=== PATIENT | female | born 1965 | race Caucasian/White ===

== ENCOUNTER → 2016-10-20 | Outpatient (CLI) | payer OTHER, SELFPAY ==
[~2016-10-20] MED LIST: ADV250INH INH; ADVI200C5 PO; ALBU0.084 IN; ALBU17IN INH; ALBU83IN INH; ATIV1TAB7 PO; BACL10TA2 PO; BUSP15TA47 PO; CELL500T PO; CIPR500T89 PO; CITA20TA4 PO; COLA100C PO; COLC1TAB5 PO; Citalopram PO; FLAG500T PO; FURO40TA2 PO; HYDR200T3 PO; IBUP600T26 PO; IBUP80TA PO; INSULANT SC; IPRAINH INH; KLOR1TAB73 PO; LASI40TA PO; LEVA750T PO; LEVO750T33 PO; LORA2CON5 PO; MECL-68 PO; METF1000 PO; MYFO360T PO; NICO14DI3 TD; NICO21DI5 TD; NORCOTAB FT; NORCOTAB PO; NOVOINJ12 SC; PERCOCET PO; PRED10TA PO; PRED20TA PO; PRED20TAB PO; PROT1TAB2 PO; PULMICORT INH; ROBITUSSIN PO; TRAM50TA2 PO; TYLE325T5 PO; ULTR50TA PO; VENTAER IN; VIST25CA PO; XANA0.25 PO; ZITHTAB PO; [UNRECOGNIZED DRUG - CODE] PO; [UNRECOGNIZED DRUG - OTHER]; colcrys PO
--- NOTE | 2016-10-20 18:15 | REP ---
PA and lateral chest: Comparison is 05/27/2015. The lung batres are clear. The cardiac size is normal The irving, mediastinum, and bony thorax are unremarkable. Impression: Negative PA and lateral chest. There is no interval change. Signed by Antolin Rice MD 10/20/2016 06:07 P
== END ==
LOC: M LRY 17:04 → M WUC 17:04
PROVIDERS: ATTEND Physician Assistant
DX: J45.909 Unspecified asthma, uncomplicated (principal)

== ENCOUNTER → 2016-10-21 | Outpatient (CLI) | payer MEDICARE ==
[2016-10-21 10:56] LABS: CREATININE FOR GFR 1.06 MG/DL (0.55-1.02); GLOMERULAR FILTRATION RATE 57.7 (>51)
--- NOTE | 2016-10-21 12:25 | REP ---
Chest CT pulmonary artery CT angiography: Comparisons are the similar CT of the chest dated 05/27/[address] of the abdomen dated 02/02/2013. There are no emboli in the pulmonary trunk or central pulmonary arteries. There are no emboli in the pulmonary artery lobe or segment branches. There are no infiltrates, effusions or masses. There is no mediastinal, hilar or axillary lymphadenopathy. Thoracic aorta is unremarkable. Cardiac size is normal. There is a 2.8 cm hypodensity in the right lobe of the liver, unchanged in size from 02/02/2013. MRI of this lesion was attempted on 02/15/2014, however, the patient was too claustrophobic for the MRI examination. Impression: There are no pulmonary emboli. There are no infiltrates, effusions or masses. There is a stable hypo density in the right lobe of the liver as described. Signed by Antolin Rice MD 10/21/2016 12:16 P
== END ==
LOC: M LAB 10:07
PROVIDERS: ATTEND Physician Assistant
DX: J45.21 Mild intermittent asthma with (acute) exacerbation (principal)

== ENCOUNTER → 2016-12-04 | Outpatient (CLI) | payer MEDICARE, MEDICAID ==
--- NOTE | 2016-12-04 11:01 | REP ---
Clinical: Pain. Decreased range of motion. Technique: AP and frog lateral views of the left hip. Findings: Age-related changes appreciated including subtle increase sclerosis to the acetabular roof and minimal spurring. No further overt degenerative changes. No acute fracture or dislocation. Impression: Age-related degenerative changes. Signed by Sherman Bailey MD 12/04/2016 10:54 A
[2016-12-04 13:46] LABS: MEAN CORPUSCULAR HEMOGLOBIN 28.8 pg (27.0-33.0); MEAN CORPUSCULAR HGB CONC 32.2 g/dl (32.0-36.5); MEAN CORPUSCULAR VOLUME 89.2 fl (80.0-96.0); RED CELL DISTRIBUTION WIDTH 12.9 % (11.5-14.5); WHITE BLOOD COUNT 7.3 K/mm3 (4.0-10.0)
[2016-12-04 14:11] LABS: VITAMIN B12 LEVEL 402 PG/ML (247-911)
[2016-12-04 14:15] LABS: ANION GAP 10 MEQ/L (8-16); BLOOD UREA NITROGEN 11 MG/DL (7-18); CARBON DIOXIDE LEVEL 26 MEQ/L (21-32); CHLORIDE LEVEL 107 MEQ/L (98-107); GLOMERULAR FILTRATION RATE > 60.0 (>51); GLUCOSE, FASTING 120 MG/DL (70-105); POTASSIUM SERUM 4.2 MEQ/L (3.5-5.1); SODIUM LEVEL 143 MEQ/L (136-145)
[2016-12-04 14:16] LABS: ALBUMIN 3.7 GM/DL (3.2-5.2); ALBUMIN/GLOBULIN RATIO 1.37 (1.00-1.93); ALKALINE PHOSPHATASE 73 U/L (45-117); ALT/SGPT 14 U/L (12-78); AST/SGOT 10 U/L (15-37); BILIRUBIN,TOTAL 0.4 MG/DL (0.2-1.0); CALCIUM LEVEL 8.6 MG/DL (8.5-10.1); CHOLESTEROL LEVEL 117 MG/DL (<200); MAGNESIUM LEVEL 2.4 MG/DL (1.8-2.4); TOTAL PROTEIN 6.4 GM/DL (6.4-8.2); TRIGLYCERIDES LEVEL 92 MG/DL (<150)
[2016-12-04 14:17] LABS: FREE T4 0.96 NG/DL (0.76-1.46)
== END ==
LOC: M WUC 10:07
PROVIDERS: ATTEND Nurse Practitioner Family
DX: M16.12 Unilateral primary osteoarthritis, left hip (principal); E78.00 Pure hypercholesterolemia, unspecified; E11.9 Type 2 diabetes mellitus without complications; E55.9 Vitamin D deficiency, unspecified; R53.83 Other fatigue; E53.9 Vitamin B deficiency, unspecified

== ENCOUNTER → 2016-12-29 | Outpatient (CLI) | payer MEDICAID, MEDICARE ==
[~2016-12-29] MED LIST changes: -COLA100C PO; +COLA100C3 PO
--- NOTE | 2016-12-29 13:03 | REP ---
Thyroid ultrasound: The right and left lobes are borderline enlarged. The right lobe measures 4.9-0.0 x 2.6 cm. Left lobe measures 4.8 x 2.0 by 1.8 cm. The isthmus is 3 mm thickness borderline thickened. There are two cysts in the upper pole right lobe, one measuring 0.8 cm and the other measuring 0.6 cm. There is a 2.4 cm nodule in the lower pole of the right. There is a complex nodule in the upper pole of the left lobe measuring 0.9 cm. There is a small cyst in the lower pole of the left lobe measuring 0.6 cm. There is a another cyst in the lower pole of the left lobe measuring 0.9 cm. The gland is diffusely heterogeneous. Impression: Borderline enlarged thyroid gland with heterogeneous parenchyma. Multiple cysts are identified. There is a 2.4 cm nodule in the lower pole of the right lobe. There is a complex cyst in the upper pole of the left lobe. Signed by Antolin Rice MD 12/29/2016 12:55 P
== END ==
LOC: M RAD 11:21
PROVIDERS: ATTEND Nurse Practitioner Family
DX: R53.83 Other fatigue (principal)

== ENCOUNTER → 2017-02-22 | Outpatient (REF) | payer MEDICARE | LOC: M LAB REF 15:38 | PROVIDERS: ATTEND Internal Medicine Endocrinology, Diabetes & Metabolism | DX: E04.2 Nontoxic multinodular goiter (principal) ==

== ENCOUNTER → 2017-02-23 | Outpatient (CLI) | payer MEDICARE ==
--- NOTE | 2017-02-23 12:25 | REP ---
TWO VIEW CHEST: Two views of the chest are performed and compared to a prior study of 10/20/2016. There is bibasilar interstitial fibrotic change, which appear stable. No definite acute infiltrate is seen. The heart is normal in size and the mediastinal silhouette is unremarkable and unchanged. There are mild degenerative changes of the spine. IMPRESSION: Mild stable chronic changes without evidence of acute infiltrate. Signed by Antolin Degroot MD 02/23/2017 01:50 P
== END ==
LOC: M SMT 11:28
PROVIDERS: ATTEND Nurse Practitioner Family
DX: R05 Cough (principal)

== ENCOUNTER → 2017-06-02 | Outpatient (REF) | payer MEDICARE ==
[~2017-06-02] MED LIST changes: -COLA100C3 PO; +COLA100C5 PO; +COLC1TAB14 PO; -COLC1TAB5 PO; -LEVA750T PO; +LEVA750T7 PO; +LEVO750T13 PO; -LEVO750T33 PO; -METF1000 PO; +METF10004 PO; +[UNRECOGNIZED DRUG - CODE] PO; -[UNRECOGNIZED DRUG - CODE] PO
== END ==
LOC: M LAB REF 10:20
PROVIDERS: ATTEND Internal Medicine Endocrinology, Diabetes & Metabolism
DX: D34 Benign neoplasm of thyroid gland (principal)

== ENCOUNTER → 2017-08-24 | Outpatient (REF) | payer MEDICARE | LOC: M LAB REF 12:01 | PROVIDERS: ATTEND Surgery | DX: L72.3 Sebaceous cyst (principal) ==

== ENCOUNTER 2018-08-15 17:23 | Emergency (ER) | payer MEDICARE, SELFPAY ==
[2018-08-15] MEDS ORDERED: LORazepam 2 MG/ML VIAL (J2060) IM (17:56)
[2018-08-15 18:02] LABS: BASO % 0.4 % (0.0-1.0); EOS # 0.1 10^3/uL (0.0-0.50); EOS % 0.8 % (0.0-3.0); HEMATOCRIT 44.2 % (36.0-47.0); HEMOGLOBIN 14.7 g/dl (12.0-15.5); IMMATURE GRANULOCYTE % 0.2 % (0-3.0); LYMPH # 2.9 10^3/uL (1.5-4.5); LYMPH % 27.5 % (24.0-44.0); MEAN CORPUSCULAR HEMOGLOBIN 28.9 pg (27.0-33.0); MEAN CORPUSCULAR HGB CONC 33.3 g/dl (32.0-36.5); MEAN CORPUSCULAR VOLUME 86.8 fl (80.0-96.0); MONO # 0.8 10^3/uL (0.0-0.8); MONO % 7.3 % (0.0-5.0); NEUTROPHILS # 6.7 10^3/uL (1.8-7.7); NEUTROPHILS % 63.8 % (36.0-66.0); PLATELET COUNT, AUTOMATED 256 10^3/uL (150-450); RED BLOOD COUNT 5.09 10^6/uL (4.00-5.40); WHITE BLOOD COUNT 10.5 10^3/uL (4.0-10.0)
[2018-08-15] MEDS: NS 1,000 ML IV (18:08)
[2018-08-15] MEDS: MORPHINE 4 MG/ML 1ML VIAL/SYRINGE (J2270) IV (18:09)
[2018-08-15] MEDS: ONDANSETRON 4MG/2ML VIAL (J2405) IV (18:10)
[2018-08-15] MEDS: LORazepam 2 MG/ML VIAL (J2060) IV (18:14)
[2018-08-15] MEDS: methylPREDNISolone INJ 125 MG/2 ML VIAL (J2930) IV (18:14)
[2018-08-15] MEDS: IPRATROPIUM 0.5MG/ALBUTEROL 2.5MG INH SOL UD 3ML (DUONEB)(J7620) NEB (18:20)
[2018-08-15 18:25] LABS: ANION GAP 7 MEQ/L (8-16); BLOOD UREA NITROGEN 18 MG/DL (7-18); CALCIUM LEVEL 8.6 MG/DL (8.5-10.1); CARBON DIOXIDE LEVEL 26 MEQ/L (21-32); CHLORIDE LEVEL 109 MEQ/L (98-107); CK-MB VALUE MASS < 1.0 NG/ML (<3.6); CPK CREATINE PHOSPHOKINASE 63 U/L (26-192); CREATININE FOR GFR 1.22 MG/DL (0.55-1.30); GLOMERULAR FILTRATION RATE 48.7 (>51); GLUCOSE, FASTING 111 MG/DL (70-100); MB/CK RELATIVE INDEX 1.59 (< OR =4); POTASSIUM SERUM 4.2 MEQ/L (3.5-5.1); SODIUM LEVEL 142 MEQ/L (136-145); TROPONIN I < 0.02 NG/ML (< 0.10)
[2018-08-15] MEDS ORDERED: ISOVUE-370 76% 100ML VIAL (Q9967) As Ordered (18:46)
[2018-08-15] MEDS: MORPHINE 2 MG/ML 1ML SYRINGE (J2270) IV (20:01)
== END 2018-08-15 21:13 | disposition home or self-care (01) ==
LOC: M ED 17:23
DX: R07.1 Chest pain on breathing (principal); E11.9 Type 2 diabetes mellitus without complications; J44.9 Chronic obstructive pulmonary disease, unspecified; M32.9 Systemic lupus erythematosus, unspecified; G89.29 Other chronic pain; M54.5 Low back pain; F17.210 Nicotine dependence, cigarettes, uncomplicated
CPT/HCPCS: J2270

== ENCOUNTER → 2018-12-04 | Outpatient (REF) | payer MEDICARE ==
[~2018-12-04] MED LIST changes: -LASI40TA PO; +LASI40TA9 PO; -NICO21DI5 TD; +NICO21DI6 TD; +ULTR50TA8 PO
[2018-12-04 21:57] LABS: INFLUENZA A AMPLIFICATION NEGATIVE (NEGATIVE); INFLUENZA B AMPLIFICATION NEGATIVE (NEGATIVE)
== END ==
LOC: M LAB REF 09:07
PROVIDERS: ATTEND Nurse Practitioner Family
DX: J11.1 Influenza due to unidentified influenza virus with other respiratory manifestations (principal)

== ENCOUNTER → 2019-04-01 | Outpatient (CLI) | payer MEDICARE ==
[~2019-04-01] MED LIST changes: -CITA20TA4 PO; +CITA20TA6 PO; +HYDR-3715 PO; -NORCOTAB PO; +OXYC1TAB23 PO; +PRED-351 PO; -PRED10TA PO
--- NOTE | 2019-04-01 14:43 | REP ---
CHEST TWO VIEWS: COMPARISON: 05/27/2015 There are minor bibasilar fibrotic changes, which are stable. There is no acute infiltrate or pulmonary edema. The heart is normal in size. Mediastinal silhouette is unchanged. There are mild degenerative changes of the spine. IMPRESSION: No acute pulmonary disease. Electronically Signed by Antolin Degroot MD 04/02/2019 10:13 P
== END ==
LOC: M RAD 14:02
PROVIDERS: ATTEND Physician Assistant Medical
DX: R07.9 Chest pain, unspecified (principal)

== ENCOUNTER → 2019-05-02 | Outpatient (CLI) | payer MEDICARE ==
[2019-05-02 20:49] LABS: CHOLESTEROL RISK RATIO 2.352 (<5)
== END ==
LOC: M WUC 17:59
PROVIDERS: ATTEND Obstetrics & Gynecology
DX: Z13.220 Encounter for screening for lipoid disorders (principal)

== ENCOUNTER → 2019-05-03 | Outpatient (CLI) | payer MEDICARE ==
--- NOTE | 2019-05-04 07:55 | REP ---
Left ribs for views: There is no rib fracture or other rib abnormality. Right ribs four views: There is no rib fracture or other rib abnormality. PA chest: Comparison is 04/01/2019. There is no pneumothorax, hemothorax or pulmonary contusion. Lung batres are clear and unchanged. There is no pleural thickening. The cardiac size is normal. The irving, mediastinum, skeletal structures are unremarkable. Impression: Negative PA chest. There is no interval change. Electronically Signed by Antolin Rice MD 05/04/2019 07:46 A
== END ==
LOC: M WUC 18:12
PROVIDERS: ATTEND Obstetrics & Gynecology
DX: R07.81 Pleurodynia (principal)

== ENCOUNTER → 2019-05-26 | Outpatient (CLI) | payer MEDICARE ==
[2019-05-26 21:12] LABS: CREATININE FOR GFR 1.12 MG/DL (0.55-1.30); GLOMERULAR FILTRATION RATE 53.8 (>51); POTASSIUM SERUM 4.7 MEQ/L (3.5-5.1)
== END ==
LOC: M WUC 16:22
PROVIDERS: ATTEND Obstetrics & Gynecology
DX: J40 Bronchitis, not specified as acute or chronic (principal)

== ENCOUNTER → 2019-06-12 | Outpatient (CLI) | payer MEDICARE ==
--- NOTE | 2019-06-12 14:00 | REP ---
REASON FOR EXAM: Tobacco abuse. COMPARISON: Multiple, the latest 08/15/2018. Curvilinear bibasilar opacities are again noted and have been stable for years. There are no new abnormal nodules, mass, or opacities. There are no pleural or pericardial effusions. Grossly the mediastinum and pulmonary irving are unchanged. Grossly the imaged upper abdomen and imaged osseous structures are unchanged. IMPRESSION: No significant change from prior exams. No acute disease. Lung-RADS category 2. Yearly CT screening is recommended. Electronically Signed by Enrico Ryder DO 06/12/2019 02:39 P
== END ==
LOC: M RAD 09:33
PROVIDERS: ATTEND Obstetrics & Gynecology
DX: F17.210 Nicotine dependence, cigarettes, uncomplicated (principal)

== ENCOUNTER 2019-11-13 08:36 | Inpatient (IN) | payer MEDICARE ==
[~2019-11-13] VITALS: Ht 177.8 cm; Wt 97.7 kg
[~2019-11-13 08:36] MED LIST changes: -MECL-68 PO; +MECL1TAB31 PO
[2019-11-13] MEDS ORDERED: IBUP-1022 PO (08:47)
[2019-11-13] MEDS ORDERED: ONDANSETRON 4MG/2ML VIAL (J2405) IV ONE (09:15)
[2019-11-13] MEDS ORDERED: NS 1,000 ML IV ONE (09:15)
[2019-11-13] MEDS: MORPHINE 2 MG/ML 1ML VIAL (J2270) IV PRN ×6 (09:43→20:58)
[2019-11-13 09:46] LABS: BASO # 0.1 10^3/uL (0.0-0.2); BASO % 0.5 % (0.0-1.0); EOS # 0.1 10^3/uL (0.0-0.5); EOS % 1.1 % (0.0-3.0); HEMATOCRIT 46.4 % (36.0-47.0); HEMOGLOBIN 15.1 g/dl (12.0-15.5); LYMPH # 2.5 10^3/uL (1.5-5.0); LYMPH % 19.4 % (24.0-44.0); MEAN CORPUSCULAR HEMOGLOBIN 28.3 pg (27.0-33.0); MEAN CORPUSCULAR HGB CONC 32.5 g/dl (32.0-36.5); MEAN CORPUSCULAR VOLUME 87.1 fl (80.0-96.0); MONO # 0.8 10^3/uL (0.0-0.8); NEUTROPHILS # 9.4 10^3/uL (1.5-8.5); NEUTROPHILS % 72.6 % (36.0-66.0); PLATELET COUNT, AUTOMATED 271 10^3/uL (150-450); RED BLOOD COUNT 5.33 10^6/uL (4.00-5.40); WHITE BLOOD COUNT 12.9 10^3/uL (4.0-10.0)
[2019-11-13 09:59] LABS: INR 0.99; PROTHROMBIN TIME 12.8 SECONDS (11.8-14.0)
[2019-11-13] MEDS ORDERED: ISOVUE-370 76% 100ML VIAL (Q9967) As Ordered ONE (09:59)
[2019-11-13 10:16] LABS: ALBUMIN 3.9 GM/DL (3.2-5.2); ALT/SGPT 14 U/L (12-78); BILIRUBIN,DIRECT 0.2 MG/DL (0.0-0.2); BILIRUBIN,TOTAL 0.4 MG/DL (0.2-1.0); CK-MB VALUE MASS < 1.0 NG/ML (<3.6); CPK CREATINE PHOSPHOKINASE 77 U/L (26-192); LIPASE 167 U/L (73-393); TROPONIN I < 0.02 NG/ML (< 0.10)
[2019-11-13] MEDS ORDERED: IPRATROPIUM 0.5MG/ALBUTEROL 2.5MG INH SOL UD 3ML (DUONEB)(J7620) NEB ONE (10:30)
--- NOTE | 2019-11-13 11:20 | REP ---
CT ABDOMEN PELVIS WITH IV BUT WITHOUT ORAL CONTRAST: HISTORY: Right upper quadrant pain. Comparison is made with images from chest CT study done August 15, 2018. Comparison abdomen CT study of May 17, 2013. There is a right upper quadrant sonography from April 04, 2015. CT CONTRAST DOSE: 100 mL of intravenous Isovue [address] FINDINGS: Preliminary digital housekeeping department worker radiograph is unremarkable. The lung bases demonstrate mild bilateral lower lobe linear fibrotic change. No pleural effusion is seen. Spleen is normal in size homogeneous in texture. There are two focal low-density liver lesions which are unchanged from remote prior studies May 17, 2013. The larger of these is in the right lobe measuring 3.0 cm in greatest diameter and is consistent with a hyperechoic hemangioma described by prior ultrasound. It is visible on prior CT is. The smaller is a probable cyst near the dome of the right lobe of the liver measuring 0.7 cm. No other focal liver lesion is seen. The gallbladder shows pericholecystic fluid and wall thickening. The gallbladder is somewhat distended. No stone is visible on CT scan. The main pancreatic duct is dilated measuring up to 6 mm. The common bile duct in the head of the pancreas measures 8 mm and is slightly prominent as well. There is no evidence of intrahepatic biliary ductal dilation. There is a descending duodenal diverticulum containing some air. No adrenal lesion is seen. The kidneys enhance symmetrically and are morphologically intact. No retroperitoneal mass or adenopathy. There is pancolonic diverticulosis of the colon. This is most pronounced in the sigmoid colon where there is mural thickening. The uterus is surgically absent. There is some fibrotic reaction in the cul-de-sac adjacent to the sigmoid colon. Ovaries are seen of this somewhat superiorly in the pelvis bilaterally and appear normal. Urinary bladder appears intact. No abdominal wall defect is seen. Small and large bowel loops are otherwise unremarkable. The appendix is not seen but there is no CT evidence of appendicitis. IMPRESSION: 1. Distended thick-walled gallbladder with pericholecystic fluid question acute cholecystitis. No stones seen by CT. 2. Mildly prominent CBD and moderate dilation of the main pancreatic duct. 3. Pancolonic diverticulosis. Diverticulitis pattern in the sigmoid colon with some adjacent pericolonic fibrosis in the left side of the cul-de-sac. Post hysterectomy. Electronically Signed by Willie Casanova MD 11/13/2019 01:03 P
[2019-11-13] MEDS ORDERED: BENL200I SC (11:42)
[2019-11-13] MEDS ORDERED: metroNIDAZOLE 500 MG in IV 1 EA IV ONE (11:45)
[2019-11-13] MEDS ORDERED: AZTREONAM 2 GM in D5W MINI-BAG PLUS 50 ML IV ONE (11:45)
[2019-11-13] MEDS ORDERED: GABA-845 PO (13:43)
--- NOTE | 2019-11-13 14:03 | REP ---
Right upper quadrant sonography: History: Pain. Comparison CT study November 13, 2019. Findings: Tenderness to scanning is seen over the enlarged dilated gallbladder. Gallbladder wall is quite thickened measuring 1.1 cm. The gallbladder is dilated to a 10.9 cm greatest dimension. Common bile duct is dilated at 12 mm. No focal liver lesion is seen. Intrahepatic bile ducts are not dilated. There is a shadowing calculus in the gallbladder neck. There is a hyperechoic solid lesion in the right lobe of the liver consistent with a hemangioma. This measures 2.6 cm in greatest diameter. This has been previously noted. Limited views of the pancreas show pancreatic ductal dilation up to 7 mm. There is no evidence of ascites or right renal abnormality. The right kidney measures 11.2 x 4.3 x 4.3 cm. Impression: Dilated thick-walled gallbladder with a 12 mm shadowing calculus in the neck of the gallbladder. Findings consistent with cholecystitis. The common bile duct and the pancreatic ducts are dilated. No intrahepatic ductal dilation is observed. There is a 2.6 cm hepatic hemangioma. Electronically Signed by Willie Casanova MD 11/13/2019 08:04 P
[2019-11-13] MEDS ORDERED: GLUCAGON FOR INJ 1 MG VIAL (J1610) SC PRN (14:15)
[2019-11-13] MEDS ORDERED: DEXTROSE 50% 50 ML SYRINGE IV PRN (14:15)
[2019-11-13] MEDS ORDERED: GLUCOSE 4 GM CHEW TABLET PO PRN (14:15)
[2019-11-13] MEDS ORDERED: IPRATROPIUM 0.5MG/ALBUTEROL 2.5MG INH SOL UD 3ML (DUONEB)(J7620) NEB PRN (14:15)
[2019-11-13] MEDS: ENOXAPARIN 40 MG/0.4 ML SYRINGE (J1650) SC SCH (14:26)
[2019-11-13] MEDS: IPRATROPIUM 0.5MG/ALBUTEROL 2.5MG INH SOL UD 3ML (DUONEB)(J7620) NEB SCH ×2 (14:52→18:38)
--- NOTE | 2019-11-13 15:01 | REP ---
CHEST, TWO VIEWS: COMPARISON: 04/01/2019. There is no evidence of acute infiltrate. No pleural effusion is seen. The heart is normal in size. The mediastinal silhouette is unremarkable. The visualized osseous structures are intact. IMPRESSION: No acute pulmonary disease. Electronically Signed by Antolin Degroot MD 11/13/2019 05:59 P
[2019-11-13] MEDS: LR 1,000 ML IV SCH (15:30)
[2019-11-13 16:00] VITALS: BP 155/84
--- NOTE | 2019-11-13 16:37 | HPE ---
DATE OF ADMISSION: 11/13/2019 PRIMARY CARE PROVIDER: Pallavi Santoyo DO ATTENDING PHYSICIAN: Hospitalist group. SURGEON: Dr. Pavan Mccormack PRINCIPAL DIAGNOSIS: Acute cholecystitis. HISTORY: Fidelina Morejon is a 54-year-old patient of the [facility] clinic, sees Dr. Santoyo. She is admitted with acute cholecystitis. She has had several days of right upper quadrant abdominal pain. She initially thought she had had a recurrence of her pericarditis. She has had acute pericarditis in the past by Dr. Byrd, application developer from [place]. When she came to the emergency room, she had been nauseated, had poor appetite, was not able to take deep inspiration, had pain in her right upper quadrant, chest and right shoulder. Gallbladder ultrasound and CT scan of the abdomen and pelvis showed acute cholecystitis as well as a dilated pancreatic duct and dilated common bile duct. Dr. Mccormack has agreed to see her surgically and wants her admitted to the hospitalist service. She has a medical history significant for fairly severe chronic obstructive pulmonary disease (COPD). She is followed by [facility]. She is fairly steroid dependent. She apparently was on systemic steroids for about a year, weaning herself from 60 mg of prednisone down to 10 mg, which she ultimately discontinued approximately a week ago. She is quite wheezy and short of breath in the emergency room, which she said just started in the last day or so. She reportedly had spirometry done early 2018, but there is no copy of that in her office record. Other past medical history shows type 2 diabetes, diagnosis of lupus for which she is followed by Dr. 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 Byrd. Unfortunately, her electronic record has none of her past cardiologic or rheumatologic records available, so I do not have any further details on these conditions. PAST SURGICAL HISTORY: She had ovarian cyst rupture in 1985. Multiple dilation and curettages. Tubal ligation. section. "Partial hysterectomy" in 2011. HOME MEDICATIONS: - potassium 10 mEq daily - spironolactone 25 mg twice a day - Protonix 40 mg daily - Celexa 20 mg daily - baclofen unspecified dose - meclizine 25 mg as needed - colchicine 0.6 mg daily - hydroxyzine 25 mg every 8 hours - vitamin B12 100 mg daily - gabapentin 300 mg three times a day - prednisone, which she was weaned off from just a week ago after one year with tapering course - Lasix 20 mg daily - Plaquenil 200 mg twice a day - Benlysta 200 mg subcutaneously weekly for her lupus - alendronate 35 mg weekly for osteoporosis prevention - metformin 500 mg two tablets twice a day - BuSpar 15 mg twice a day - tizanidine 4 mg three times a day - albuterol inhaler or DuoNebs every 4-6 hours ALLERGIES: PENICILLIN caused a rash. SOCIAL HISTORY: She smokes a pack per day. Had screening CTs of the chest done - negative for malignancy. No alcohol intake. REVIEW OF SYSTEMS: No epistaxis, rectal bleeding, urinary bleeding. No fever, chills, night sweats. No warmth, redness, or swelling of her joints. No recent skin rashes. She has been increasingly wheezy since stopping the prednisone a week ago. FAMILY HISTORY: Father of brain cancer, mother of congestive heart failure. PHYSICAL EXAMINATION: Vital signs per flow sheet. Blood pressure is 165/90, 99.1 degrees. General Appearance: She looks anxious, using a nebulizer. Pupils equal, round, reactive to light. Tympanic membranes (TMs) normal. Pharynx benign. Neck: No masses. Lungs: Expiratory wheezes all batres. Heart: Regular rhythm. No rub. No murmur. Abdomen: Soft, tender right upper quadrant with guarding and a positive Morejon's sign. No masses. Extremities: No clubbing, cyanosis, or edema. Normal strength in the arms and legs. She has a mild tremor, probably from the nebulizer treatment she is receiving. LABORATORY Liver profile is normal. Sodium 140, potassium 4.0, BUN 15, creatinine 0.9. White count is 12.9, hemoglobin 15, platelets 271. PT/INR normal. Urinalysis negative. Gallbladder ultrasound and CT of the abdomen and pelvis as above. EKG was reviewed. It is unchanged from prior tracing. Nonspecific changes. No changes to suggest acute pericarditis. IMPRESSION: 1. Acute cholecystitis. She will be admitted to a medical bed, started on IV antibiotics. I have discussed the case with Dr. Mccormack, planned surgery tomorrow. The patient is nothing by mouth (n.p.o.). IV fluids have been ordered. Details of surgical risk will be deferred to surgical discussion. 2. Chronic steroid therapy. She just completed a year of chronic steroids. Most recent dose of prednisone 10 mg daily. She will receive "stress dose" hydrocortisone 50 mg IV every 12 hours. Would continue this until 48 hours after surgery and then restart oral prednisone. 3. Chronic obstructive pulmonary disease (COPD). Fairly steroid dependent. Nebulized bronchodilator has been ordered. Preoperative chest x-ray has been ordered, pending. 4. Type 2 diabetes. Holding metformin. IV fluids have been ordered. Renal function is normal. Sliding scale insulin coverage. 5. Lupus. Once she is taking by mouth (p.o.) again, we should restart her Plaquenil, and continue her monoclonal antibody treatment from rheumatology. 6. History of anxiety/depression. Restart Celexa 20 mg daily and BuSpar 15 mg twice a day once she is able to take by mouth again. 7. Fibromyalgia. Restart gabapentin 300 mg three times a day once she is able to take by mouth again. 8. Deep vein thrombosis (DVT) prophylaxis with Lovenox has been ordered.
[2019-11-13 17:20] LABS: ALBUMIN 3.5 GM/DL (3.2-5.2); BILIRUBIN,DIRECT 0.4 MG/DL (0.0-0.2); BILIRUBIN,TOTAL 0.8 MG/DL (0.2-1.0); TOTAL PROTEIN 6.4 GM/DL (6.4-8.2)
[2019-11-13] MEDS: HYDROCORTISONE 100 MG/2 ML VIAL (J1720 PER 1) IV SCH (17:58)
[2019-11-13] MEDS: HumaLOG INSULIN (NovoLOG) PER UNIT SC SCH (18:13)
[2019-11-13] MEDS: AZTREONAM 2 GM in D5W MINI-BAG PLUS 50 ML IV SCH (19:55)
[2019-11-13 20:00] VITALS: BP 142/80
--- NOTE | 2019-11-13 20:43 | ECGEPIP ---
[facility] - ED Test Date: 2019-11-13 Pat Name: LUCIA JIMENEZ Department: Room: - Gender: Female Leasing Professional: estiven : 1965 Requested By: SERGEY Brown Order Number: [id number] Reading MD: Sergey Nuno Measurements Intervals [place] Rate: 85 P: 61 AL: 167 QRS: 62 QRSD: 82 T: 60 QT: 353 QTc: 421 Interpretive Statements SINUS RHYTHM Similar to tracing done 08-15-18 Electronically Signed on 11-13-2019 20:43:37 EST by Sergey Nuno
[2019-11-13] MEDS: metroNIDAZOLE 500 MG in IV 1 EA IV SCH (20:57)
[2019-11-13] MEDS: ONDANSETRON 4MG/2ML VIAL (J2405) IV PRN (20:58)
--- NOTE | 2019-11-13 21:05 | CR ---
DATE OF CONSULTATION: 11/13/2019 REASON FOR CONSULTATION: Acute cholecystitis. HISTORY OF PRESENT ILLNESS: The patient is a 54-year-old woman who presented to the emergency department on 11/13/2019 in the morning with a complaint of some chest and abdominal discomfort that had begun the previous day. The patient reports that she has a history of prior pericarditis related to underlying lupus. She had started, by her account, with some pain in the mid chest extending upwards somewhat, this then moved more inferiorly and to the right, and she developed more pain in the mid epigastrium and extending to the right upper quadrant. She noted a feeling of some nausea. She denied vomiting. She noted tenderness and fullness in the right upper quadrant. She indicated that there was increased pain with a deep breath. In the emergency department, she was found to have tenderness in the right upper quadrant. Her evaluation included laboratory studies that showed a slight elevation of the white blood cell count to 13,000 with 73% neutrophils. Chemistries were unremarkable. She had a CT scan that showed a distended gallbladder with gallbladder wall thickening and some pericholecystic fluid. A stable density was identified in the liver. The main pancreatic duct and common bile duct both appeared somewhat enlarged. There was some thickening noted in the sigmoid colon. A gallbladder ultrasound was done which confirmed a dilated thick-walled gallbladder with a 12 mm calculus in the neck of the gallbladder. Findings were felt to be consistent with acute cholecystitis. The patient has several underlying medical issues and was admitted by the hospitalist and I am consulted for treatment of the acute cholecystitis. ALLERGIES: Patient reports an allergy to PENICILLIN. MEDICATIONS: At the time of admission included: - albuterol inhalers every 4 hours as needed for dyspnea - belimumab 200 mg injected subcutaneously every week - buspirone hydrochloride 15 mg by mouth twice a day - Lasix 40 mg by mouth daily - gabapentin 400 mg by mouth three times a day - hydroxychloroquine sulfate 200 mg by mouth daily - ibuprofen 600 mg every 6 hours as needed for pain - metformin 1000 mg by mouth twice a day SURGICAL HISTORY: Significant for a prior hysterectomy. She has had treatment for a previous ovarian cyst rupture. She has had several dilatation and curettages. She had a section. MEDICAL HISTORY: Significant for diabetes mellitus type 2. She has a diagnosis of lupus for which she follows in [place]. She has had recurrent pericarditis secondary to the lupus. She also has chronic obstructive pulmonary disease. She has been on steroids for a prolonged period of time for either the lupus or her chronic obstructive pulmonary disease (COPD), or both, and apparently had just been weaned off of prednisone, which was stopped approximately a week ago. She reports that she also has fibromyalgia. SOCIAL HISTORY: Patient continues to smoke a pack of cigarettes per day. She apparently denies any alcohol intake. FAMILY HISTORY: Is really noncontributory. REVIEW OF SYSTEMS: Patient denies any history of cardiac chest pain or palpitations. She has had no history of myocardial infarction. She is not particularly more short of breath than usual. She denies any cough or sputum production. She has had no dysuria or hematuria. She denies melena or hematochezia. She is not having any particular bone or joint problems at this time. She has no history of deep venous thrombosis (DVT) or pulmonary embolus. PHYSICAL EXAMINATION: Reveals a pleasant woman lying quietly on the hospital bed. She is alert and cooperative with the exam. Skin is warm and dry. Sclerae are anicteric. Mucous membranes are moist. The neck is supple without mass or bruit. Heart exam shows a regular rhythm. She is not tachycardic. The lungs show somewhat distant breath sounds bilaterally. The abdomen is mildly to moderately obese. She has an old low transverse scar. She has bowel sounds present in all four quadrants. She has moderate to marked direct tenderness in the right subcostal area. She has some referred tenderness to this area from palpation in other areas of the abdomen. There is no evidence of abdominal hernia. Extremities are without edema. LABORATORY STUDIES: Show a CBC with a white count of 13,000, hemoglobin 15, hematocrit 46, and a platelet count of 271. Differential count shows 73% neutrophils, 19% lymphocytes, and 6% monocytes. Chemistry profile initially showed normal electrolytes, BUN, and creatinine with a glucose of 122. The liver function tests were entirely normal at 0925 hours on 11/13/2019, troponin was less than 0.02, and her lipase was normal. Repeat labs at 1559 hours on 11/13/2019 showed that there were slight elevations in the AST and ALT to 177 and 107, respectfully, with a normal alkaline phosphatase, a direct bilirubin of 0.4, and a total bilirubin of 0.8. She had a C-reactive protein that was 3.[address] scan and ultrasound results are as noted in the history of the present illness. IMPRESSION: 1. Acute cholecystitis secondary to cholelithiasis. 2. Diabetes mellitus type 2. 3. Lupus with history of lupus pericarditis. 4. Chronic obstructive pulmonary disease, steroid dependent. 5. Long-term steroid use. 6. Ongoing tobacco abuse. 7. Fibromyalgia. RECOMMENDATIONS: At this point, I would agree with placing the patient back on some steroid coverage. She is on aztreonam for acute cholecystitis because of her PENICILLIN allergy. I am going to continue the metronidazole that she had received in the emergency department for anaerobic coverage. She should be kept nothing by mouth and I would anticipate adding her onto the schedule for tomorrow, 11/14/2019, for a laparoscopic cholecystectomy. The patient was counseled in broad terms regarding the acute cholecystitis and the need for surgical intervention. She had an opportunity to ask questions. She desires to proceed. I note that she has an echocardiogram ordered for today and hopefully this can be accomplished in good order so that this will not delay her surgical intervention.
--- NOTE | 2019-11-13 21:43 | ECGEPIP ---
[facility] Test Date: 2019-11-13 Pat Name: LUCIA JIMENEZ Department: Room: [place] [address] Gender: Female Special Education Science Teacher: MARIBELL : 1965 Requested By: Cyrus Ruffin Order Number: [id number] Reading MD: Sergey Nuno Measurements Intervals [place] Rate: 85 P: 65 HI: 170 QRS: 58 QRSD: 94 T: 44 QT: 348 QTc: 414 Interpretive Statements SINUS RHYTHM Delayed anterior R wave progression Similar to tracing done 11-13-19 at 0913 Electronically Signed on 11-13-2019 21:42:51 EST by Sergey Nuno
--- NOTE | 2019-11-13 22:51 | ECHO ---
DATE OF PROCEDURE: 11/13/2019 REFERRING PHYSICIAN: Dr. Cyrus Ruffin INDICATION: Chest pain, unspecified. HEIGHT: 178 cm WEIGHT: 97.7 kg 2D MEASUREMENTS: Left atrium: 3.3 cm Aortic root 3.2 cm Ventricular septum: 1.06 cm Posterior wall: 0.98 cm Left ventricle diastole: 4.7 cm Aortic annulus: 2.0 cm Inferior vena cava: 1.9 cm (more than 50% respiratory variation). DOPPLER MEASUREMENTS: Aortic valve velocity: 146 cm/s LVOT velocity: 116 cm/s LVOT VTI: 20.0 cm Mitral E velocity: 90.4 cm/s Mitral A velocity: 77.6 cm/s Mitral deceleration time: 161 ms No aortic regurgitation. No mitral regurgitation. Trace tricuspid regurgitation. No pulmonic regurgitation. Pulmonary acceleration time: 90 ms MITRAL ANNULAR TISSUE DOPPLER: E prime septal: 9.03 cm/s E prime lateral: 14.7 cm/s DESCRIPTION: Rhythm was sinus. Image quality was good. This was a 2D, M-mode, color flow Doppler and pulse wave Doppler examination and included mitral annular tissue Doppler. CONCLUSIONS: 1. Tiny pericardial effusion, which measured 3.7 cm over the posterior wall of the left ventricle. No diastolic chamber collapse. 2. Otherwise normal echocardiogram Doppler findings. 3. Normal left ventricle internal dimensions and wall thickness. Normal regional left ventricular (LV) wall motion and wall thickening. Normal LV systolic function. Left ventricular ejection fraction (LVEF) 65% by visual estimate. Normal LV diastolic function.
[2019-11-14] VITALS (11 sets, daily range): BP systolic 106–147; BP diastolic 51–80
[2019-11-14] MEDS: MORPHINE 2 MG/ML 1ML VIAL (J2270) IV PRN ×2 (00:20→10:16)
[2019-11-14] MEDS: LR 1,000 ML IV SCH ×3 (00:21→17:45)
[2019-11-14] MEDS: ALBUTEROL SULFATE 2.5 MG/0.5 ML INH NEB SOLN INH PRN ×2 (00:34→16:45)
[2019-11-14] MEDS: KETOROLAC 30 MG/ML VIAL (J1885) IV PRN ×2 (01:02→07:55)
[2019-11-14] MEDS: IPRATROPIUM 0.5MG/ALBUTEROL 2.5MG INH SOL UD 3ML (DUONEB)(J7620) NEB SCH ×4 (02:00→20:52)
[2019-11-14] MEDS: AZTREONAM 2 GM in D5W MINI-BAG PLUS 50 ML IV SCH ×3 (04:52→20:03)
[2019-11-14] MEDS: HYDROCORTISONE 100 MG/2 ML VIAL (J1720 PER 1) IV SCH ×2 (04:52→17:45)
[2019-11-14] MEDS: metroNIDAZOLE 500 MG in IV 1 EA IV SCH ×3 (05:57→20:44)
[2019-11-14 07:02] LABS: HEMATOCRIT 42.6 % (36.0-47.0); HEMOGLOBIN 13.8 g/dl (12.0-15.5); MEAN CORPUSCULAR HEMOGLOBIN 28.3 pg (27.0-33.0); MEAN CORPUSCULAR HGB CONC 32.4 g/dl (32.0-36.5); MEAN CORPUSCULAR VOLUME 87.5 fl (80.0-96.0); PLATELET COUNT, AUTOMATED 222 10^3/uL (150-450); RED BLOOD COUNT 4.87 10^6/uL (4.00-5.40); WHITE BLOOD COUNT 11.2 10^3/uL (4.0-10.0)
[2019-11-14 07:31] LABS: ALT/SGPT 73 U/L (12-78); BILIRUBIN,TOTAL 0.7 MG/DL (0.2-1.0); BLOOD UREA NITROGEN 14 MG/DL (7-18); CALCIUM LEVEL 8.2 MG/DL (8.5-10.1); CARBON DIOXIDE LEVEL 28 MEQ/L (21-32); CHLORIDE LEVEL 106 MEQ/L (98-107); CREATININE FOR GFR 0.95 MG/DL (0.55-1.30); GLOMERULAR FILTRATION RATE > 60.0 (>51); GLUCOSE, FASTING 108 MG/DL (70-100); POTASSIUM SERUM 3.7 MEQ/L (3.5-5.1); SODIUM LEVEL 138 MEQ/L (136-145); TOTAL PROTEIN 6.2 GM/DL (6.4-8.2)
[2019-11-14] MEDS: HumaLOG INSULIN (NovoLOG) PER UNIT SC SCH ×4 (07:54→20:51)
[2019-11-14] MEDS: ENOXAPARIN 40 MG/0.4 ML SYRINGE (J1650) SC SCH (09:00)
[2019-11-14] MEDS: GABAPENTIN 400 MG CAP PO SCH ×3 (09:23→20:03)
--- NOTE | 2019-11-14 09:25 | IPN ---
DATE: 11/14/2019 Fidelina is seen on pediatrics. She is for cholecystectomy today. She is medically stable for the proposed procedure without excessive surgical risk. Her asthma is under good control based on examination today. She denies shortness of breath or chest pain. She does have right upper quadrant pain. PHYSICAL EXAMINATION: Afebrile. Maximum temperature (t-max) 99.4. 120/58, oxygen saturation 98% on room air. GENERAL APPEARANCE: She is lying in bed, no distress. LUNGS: Entirely clear today. HEART: Regular rhythm. ABDOMEN: Soft, tender in the right upper quadrant. She has mild guarding. EXTREMITIES: Trace peripheral edema. LABORATORY DATA: White count is 12.2, sodium 138, potassium 3.7, BUN 14, creatinine 0.9, glucose 108. Liver function tests are improved. No sign of obstruction. Normal bilirubin, alkaline phosphatase. Blood sugars are 112. IMPRESSION: 1. Acute cholecystitis. Plan for surgery today. The patient is optimized for the proposed procedure. 2. Asthma/chronic obstructive pulmonary disease (COPD). Her lungs have cleared with nebulized bronchodilator and intravenous steroid. Preoperative chest x-ray shows no active disease. 3. Chronic steroid therapy. She just completed 1 year of steroids with a taper from 60 mg daily down to 10 mg. I have put her on stress dose hydrocortisone 50 mg IV every 12 hours for 48 hours and then she should restart oral prednisone tomorrow. 4. Diabetes. Sliding scale insulin while nothing by mouth. 5. History of lupus. Continue Plaquenil. She is on monoclonal antibody therapy through rheumatology. 6. Depression and anxiety. Restart Celexa, BuSpar when she is able to take orally. 7. Fibromyalgia. Restart gabapentin once she is taking orally.
[2019-11-14] MEDS ORDERED: BUPIVACAINE HCL 0.25% 30 ML VIAL As Ordered ONE (14:12)
[2019-11-14] MEDS ORDERED: LIDOCAINE 2% INJ 100 MG/5 ML SDV (FOR ANES.) As Ordered ONE (14:58)
[2019-11-14] MEDS ORDERED: SUGAMMADEX SODIUM 500 MG/5 ML VIAL (BRIDION) As Ordered ONE (14:58)
[2019-11-14] MEDS ORDERED: propofoL 200 MG/20 ML VIAL As Ordered ONE (14:58)
[2019-11-14] MEDS ORDERED: ONDANSETRON 4MG/2ML VIAL (J2405) As Ordered ONE (14:58)
[2019-11-14] MEDS ORDERED: MIDAZOLAM INJ 2 MG/2 ML VIAL (J2250) As Ordered ONE (14:58)
[2019-11-14] MEDS ORDERED: ROCURONIUM BROMIDE 50 MG/5 ML VIAL As Ordered ONE ×2 (14:58→15:09)
[2019-11-14] MEDS ORDERED: KETOROLAC 60 MG/2 ML VIAL (J1885) As Ordered ONE (14:58)
[2019-11-14] MEDS ORDERED: fentaNYL 250 MCG/5 ML INJECTION (J3010) As Ordered ONE (14:58)
[2019-11-14] MEDS ORDERED: dexameTHASONE 4 MG/ML 1ML VIAL (J1100) As Ordered ONE (14:58)
[2019-11-14] MEDS ORDERED: METOCLOPRAMIDE INJ 10MG/2ML VIAL (J2765) As Ordered ONE (14:58)
[2019-11-14] MEDS ORDERED: HYDROCORTISONE 100 MG/2 ML VIAL (J1720 PER 1) As Ordered ONE (14:58)
[2019-11-14] MEDS ORDERED: ACETAMINOPHEN 1000MG 100ML IV BTL (OFIRMEV) (J0131 PER 10MG) As Ordered ONE (14:59)
[2019-11-14] MEDS ORDERED: LABETALOL HCL 100 MG/20 ML VIAL As Ordered ONE (15:28)
[2019-11-14] MEDS ORDERED: fentaNYL 100 MCG/2 ML INJECTION (J3010) As Ordered ONE (15:48)
[2019-11-14] MEDS ORDERED: ePHEDrine SULFATE 25 MG/5 ML(5MG/ML) SYRINGE As Ordered ONE (16:01)
[2019-11-14] MEDS ORDERED: ACETAMINOPHEN TAB 650MG DOSE (2X325MG) PO PRN (16:30)
[2019-11-14] MEDS ORDERED: ALBUTEROL SULFATE 2.5 MG/0.5 ML INH NEB SOLN As Ordered ONE (16:35)
[2019-11-14] MEDS ORDERED: LR 1,000 ML IV SCH (16:45)
[2019-11-14] MEDS ORDERED: ONDANSETRON 4MG/2ML VIAL (J2405) IV PRN (16:45)
[2019-11-14] MEDS ORDERED: HYDROMORPHONE HCL 0.5 MG/ 0.5 ML SYRINGE (J1170 PER 1) IV PRN (16:45)
[2019-11-14] MEDS ORDERED: fentaNYL 100 MCG/2 ML INJECTION (J3010) IV PRN (16:45)
[2019-11-14] MEDS ORDERED: oxyCODONE 5MG TAB PO PRN (16:45)
[2019-11-14] MEDS: NORCO, ANEXSIA 5/325MG TABLET (HYDROcodone/ACETAMINOPHEN) PO PRN (20:04)
[2019-11-15] VITALS: BP 104/52
[2019-11-15] MEDS: IPRATROPIUM 0.5MG/ALBUTEROL 2.5MG INH SOL UD 3ML (DUONEB)(J7620) NEB SCH ×4 (02:55→21:25)
[2019-11-15 04:00] VITALS: BP 137/71
[2019-11-15] MEDS: AZTREONAM 2 GM in D5W MINI-BAG PLUS 50 ML IV SCH ×3 (04:32→20:34)
[2019-11-15] MEDS: IBUPROFEN 600 MG TAB PO PRN (04:49)
[2019-11-15] MEDS: metroNIDAZOLE 500 MG in IV 1 EA IV SCH ×3 (06:05→20:34)
[2019-11-15] MEDS: HYDROCORTISONE 100 MG/2 ML VIAL (J1720 PER 1) IV SCH ×2 (06:06→17:52)
[2019-11-15 06:34] LABS: HEMATOCRIT 39.1 % (36.0-47.0); HEMOGLOBIN 12.6 g/dl (12.0-15.5); MEAN CORPUSCULAR HEMOGLOBIN 28.3 pg (27.0-33.0); MEAN CORPUSCULAR HGB CONC 32.2 g/dl (32.0-36.5); MEAN CORPUSCULAR VOLUME 87.9 fl (80.0-96.0); PLATELET COUNT, AUTOMATED 211 10^3/uL (150-450); RED BLOOD COUNT 4.45 10^6/uL (4.00-5.40); WHITE BLOOD COUNT 10.8 10^3/uL (4.0-10.0)
[2019-11-15 07:04] LABS: ALBUMIN 2.7 GM/DL (3.2-5.2); ALT/SGPT 69 U/L (12-78); BILIRUBIN,TOTAL 0.3 MG/DL (0.2-1.0); BLOOD UREA NITROGEN 18 MG/DL (7-18); CALCIUM LEVEL 8.1 MG/DL (8.5-10.1); CARBON DIOXIDE LEVEL 32 MEQ/L (21-32); CHLORIDE LEVEL 106 MEQ/L (98-107); GLOMERULAR FILTRATION RATE > 60.0 (>51); GLUCOSE, FASTING 129 MG/DL (70-100); POTASSIUM SERUM 3.8 MEQ/L (3.5-5.1); SODIUM LEVEL 143 MEQ/L (136-145); TOTAL PROTEIN 5.3 GM/DL (6.4-8.2)
[2019-11-15] MEDS: ONDANSETRON 4MG/2ML VIAL (J2405) IV PRN ×3 (08:08→21:50)
[2019-11-15 08:15] VITALS: BP 149/66
[2019-11-15] MEDS: GABAPENTIN 400 MG CAP PO SCH ×3 (09:15→21:00)
[2019-11-15] MEDS: NORCO, ANEXSIA 5/325MG TABLET (HYDROcodone/ACETAMINOPHEN) PO PRN ×2 (09:15→17:52)
[2019-11-15] MEDS: ENOXAPARIN 40 MG/0.4 ML SYRINGE (J1650) SC SCH (09:15)
[2019-11-15] MEDS: HumaLOG INSULIN (NovoLOG) PER UNIT SC SCH ×4 (09:16→21:00)
--- NOTE | 2019-11-15 09:25 | IPN ---
DATE: 11/15/2019 HISTORY: The patient is now postop day #1 from a laparoscopic cholecystectomy for acute cholecystitis. She was found to have a markedly distended and edematous gallbladder filled with some lightly green-tinged clear fluid. Her surgery was without complication. Since surgery, her vital signs show that she has remained afebrile. Pulse is in the 70s generally with good blood pressure and her oxygen saturations are normal. Intake and output shows that yesterday she had 1635 in after the surgery. She has had a good urine output, though it has not all been measured. PHYSICAL EXAMINATION: The patient is lying quietly on the hospital bed. She is complaining of some abdominal discomfort and reports having had some mild nausea recently. However, she was also asking the nurse to order her some breakfast when I entered the room. The patient moves well in the bed without obvious restriction. The abdomen is perhaps mildly full. She has bowel sounds present. Her dressings are generally dry with a small amount of staining on her left upper quadrant port site. The abdomen is soft and without any undue tenderness. Laboratory studies show that her white count is 11 today with a hemoglobin of 13, hematocrit of 39 and platelet count of 211,000. Chemistry profile shows normal electrolytes, BUN, creatinine and her glucose is 129. She has a minimal elevation of her AST above normal but this is improved over yesterday and the day before. Total protein is 5.3 with an albumin of 2.7. IMPRESSION: The patient is doing very well 1 day postop from her laparoscopic cholecystectomy for acute cholecystitis. RECOMMENDATIONS: At this point, the patient can be discharged whenever she is felt to be medically ready. I encouraged her to be up ambulating today. I would anticipate that her steroids could be cut back to oral dosing. She probably does not require any antibiotic coverage at this point. Her oral medication for her diabetes could also be resumed. Whenever she is discharged, she should followup in my office in 10-14 days. She should avoid any strenuous physical activity for 2 weeks but can shower 24 hours after the surgery.
[2019-11-15 12:00] VITALS: BP 117/65
--- NOTE | 2019-11-15 15:02 | RO ---
DATE OF PROCEDURE: 11/14/2019 PREOPERATIVE DIAGNOSIS: Cholelithiasis and acute cholecystitis. POSTOPERATIVE DIAGNOSIS: Cholelithiasis and acute cholecystitis. PROCEDURE PERFORMED: Laparoscopic cholecystectomy. SURGEON: Dr. Mccormack TRAINING EXECUTIVE: ANESTHESIA: General. INDICATIONS FOR THE PROCEDURE: Patient is a 54-year-old woman who was admitted on 11/13/2019 with a 1-1/2 day history of upper abdominal pain. Imaging showed a markedly distended and inflamed gallbladder with a stone in the gallbladder neck. She was admitted for management of multiple medical problems and treatment of her acute cholecystitis. She is now for a laparoscopic cholecystectomy. OPERATIVE PROCEDURE: The patient was brought to the operating room and placed in the table in a supine position. She was placed under general endotracheal anesthesia. The patient's abdomen was prepped and draped in a sterile fashion. 0.25% Marcaine was infiltrated at each of the trocar sites as needed. A short left upper quadrant skin incision was made and a Veress needle was inserted. After positive hanging drop test the abdomen was insufflated with carbon dioxide gas. A 5 mm port was placed over a 5 mm scope and this was advanced through the abdominal wall without difficulty. Initial examination showed a markedly distended and edematous appearing gallbladder. Visualized portions of the stomach and liver appeared normal. An 11 mm port was placed just above the umbilicus. Two 5 mm ports were placed in the right upper quadrant. An aspirating needle was inserted and a large volume of watery, very lightly green tinted fluid was aspirated from the gallbladder. The gallbladder wall was clearly quite thickened and edematous. The gallbladder was grasped and elevated. Dissection began near the gallbladder neck. There was marked edema in the tissues. Hemostasis was achieved using the hook cautery primarily. With dissection the cystic duct was clearly identified and this was doubly clipped with hemoclips and divided. The cholecystic artery was then identified and this was doubly clipped with hemoclips and divided. The gallbladder was then dissected free from the gallbladder bed using cautery dissection. The gallbladder was placed in an Endopouch. The gallbladder had not been perforated in the course of dissection. The gallbladder bed was irrigated and inspected and several small bleeding points were controlled with cautery. The right upper quadrant was copiously irrigated to remove any spilled blood and final inspection showed no evidence of bleeding or bile leak. The abdomen was deflated and the trocars were removed. The gallbladder was recovered through the supraumbilical site. It was necessary to extend the skin and fascial incision slightly to allow passage of the markedly thickened gallbladder through this opening. The fascia was then closed with interrupted simple sutures of #2-0 Vicryl. The skin incisions were closed with buried #4-0 Vicryl and Steri-Strips. Light dressings were applied. The patient tolerated the procedure well without apparent complication. She was awakened in the operating room, extubated and moved to the recovery room in stable condition.
[2019-11-15 16:15] VITALS: BP 143/66
[2019-11-15] MEDS ORDERED: METOCLOPRAMIDE INJ 10MG/2ML VIAL (J2765) IV PRN (21:00)
[2019-11-15] MEDS: OMEPRAZOLE 20 MG CAP PO SCH ×3 (21:29→23:40)
[2019-11-15] MEDS: SUCRALFATE SUSP 1GM/10ML UD PO SCH ×3 (21:29→23:46)
[2019-11-15] MEDS ORDERED: DOCUSATE SOD LIQ 100MG/10ML UDC GT PRN (21:30)
[2019-11-15] MEDS ORDERED: SENNA 8.6 MG TAB (SENOKOT) PO PRN (21:30)
[2019-11-15] MEDS: MORPHINE 2 MG/ML 1ML VIAL (J2270) IV PRN (21:51)
[2019-11-15 22:15] VITALS: BP 190/86
[2019-11-15] MEDS ORDERED: DOCUSATE SOD LIQ 100MG/10ML UDC PO PRN (22:30)
[2019-11-15] MEDS ORDERED: ISOVUE-370 76% 100ML VIAL (Q9967) As Ordered ONE (22:48)
[2019-11-16] VITALS (10 sets, daily range): BP systolic 132–175; BP diastolic 62–87
--- NOTE | 2019-11-16 01:29 | REPVR ---
PROCEDURE INFORMATION: Exam: CT Abdomen And Pelvis With Contrast Exam date and time: 11/15/2019 10:32 PM Age: 54 years old Clinical indication: Abdominal pain; Generalized; Prior surgery; Surgery date: 3-7 days post-operative; Surgery type: Gallbladder; Additional info: Abd pain, vomiting post op TECHNIQUE: Imaging protocol: Computed tomography of the abdomen and pelvis with intravenous contrast. Radiation optimization: All CT scans at this facility use at least one of these dose optimization techniques: automated exposure control; mA and/or kV adjustment per patient size (includes targeted exams where dose is matched to clinical indication); or iterative reconstruction. Contrast material: ISO; Contrast volume: 100 ml; Contrast route: HAND; COMPARISON: CT ABD/PEL W/IV CONTRAST ONLY 11/13/2019 10:14 AM FINDINGS: Lungs: Linear atelectasis or scarring at the lung bases. Liver: Low-density lesion in the right hepatic lobe similar to the exam 2 days ago, measuring 2 cm. This is seen on axial image 27. Hepatic cyst more superiorly and posteriorly measuring 7 mm also seen previously. Gallbladder and bile ducts: Gallbladder is surgically absent. Pancreas: Pancreas appears normal. No focal mass or peripancreatic inflammation. Spleen: Spleen appears homogeneous without focal mass. Adrenals: Adrenal glands are normal in appearance. Kidneys and ureters: Kidneys appear normal, with no stone, solid mass or hydronephrosis. Stomach and bowel: Anterior most aspect of the abdomen is not imaged but there appears to be an abdominal wall hernia with bowel present within it. There are multiple dilated small bowel loops measuring up to 4.5 cm, and the loop entering the hernia appears dilated while the exiting loop and remaining small bowel is decompressed, suggesting that this is the point of obstruction. No pneumoperitoneum. Diverticular changes are present within the colon without inflammation. Appendix: Normal caliber appendix is identified, with no adjacent inflammation. Intraperitoneal space: See Soft Tissues Finding. Vasculature: No aortic aneurysm. Lymph nodes: No enlarged lymph nodes. Bladder: Urinary bladder appears normal. Reproductive: Uterus is surgically absent. Bones/joints: Bony structures show no acute fracture or destructive process. IMPRESSION: Small bowel obstruction, moderate grade with bowel measuring up to 4.5 cm and transition point appearing to be within a midline umbilical hernia with a 2 cm hernia neck. The actual bowel within the hernia is not imaged secondary to field of view. Surgical consultation is recommended Small 2 cm nonspecific right hepatic lesion which cannot be diagnosed specifically Electronically signed by: Colin Argueta On 11/16/2019 01:29:02 AM
[2019-11-16] MEDS: IPRATROPIUM 0.5MG/ALBUTEROL 2.5MG INH SOL UD 3ML (DUONEB)(J7620) NEB SCH ×4 (02:00→20:00)
[2019-11-16] MEDS: MORPHINE 2 MG/ML 1ML VIAL (J2270) IV PRN ×3 (02:39→23:08)
[2019-11-16] MEDS: NS 1,000 ML IV SCH ×2 (03:06→14:53)
[2019-11-16 03:41] LABS: ALT/SGPT 63 U/L (12-78); BILIRUBIN,TOTAL 0.3 MG/DL (0.2-1.0); BLOOD UREA NITROGEN 11 MG/DL (7-18); CALCIUM LEVEL 8.5 MG/DL (8.5-10.1); CARBON DIOXIDE LEVEL 31 MEQ/L (21-32); CHLORIDE LEVEL 103 MEQ/L (98-107); CREATININE FOR GFR 0.76 MG/DL (0.55-1.30); GLOMERULAR FILTRATION RATE > 60.0 (>51); GLUCOSE, FASTING 124 MG/DL (70-100); MAGNESIUM LEVEL 2.1 MG/DL (1.8-2.4); POTASSIUM SERUM 3.8 MEQ/L (3.5-5.1); SODIUM LEVEL 140 MEQ/L (136-145); TOTAL PROTEIN 5.7 GM/DL (6.4-8.2)
[2019-11-16 04:44] LABS: BASO # 0.1 10^3/uL (0.0-0.2); BASO % 0.4 % (0.0-1.0); EOS % 0.2 % (0.0-3.0); HEMATOCRIT 39.9 % (36.0-47.0); HEMOGLOBIN 13.2 g/dl (12.0-15.5); LYMPH # 1.8 10^3/uL (1.5-5.0); LYMPH % 15.8 % (24.0-44.0); MEAN CORPUSCULAR HEMOGLOBIN 28.6 pg (27.0-33.0); MEAN CORPUSCULAR HGB CONC 33.1 g/dl (32.0-36.5); MEAN CORPUSCULAR VOLUME 86.6 fl (80.0-96.0); MONO % 8.4 % (0.0-5.0); NEUTROPHILS # 8.6 10^3/uL (1.5-8.5); NEUTROPHILS % 74.9 % (36.0-66.0); PLATELET COUNT, AUTOMATED 225 10^3/uL (150-450); RED BLOOD COUNT 4.61 10^6/uL (4.00-5.40); WHITE BLOOD COUNT 11.5 10^3/uL (4.0-10.0)
[2019-11-16] MEDS: HYDROCORTISONE 100 MG/2 ML VIAL (J1720 PER 1) IV SCH ×2 (04:58→16:29)
[2019-11-16] MEDS: AZTREONAM 2 GM in D5W MINI-BAG PLUS 50 ML IV SCH ×2 (04:58→11:41)
[2019-11-16] MEDS: metroNIDAZOLE 500 MG in IV 1 EA IV SCH ×2 (04:58→12:56)
[2019-11-16] MEDS: ONDANSETRON 4MG/2ML VIAL (J2405) IV PRN ×2 (06:06→14:37)
[2019-11-16] MEDS: ALBUTEROL SULFATE 2.5 MG/0.5 ML INH NEB SOLN INH PRN ×3 (06:09→19:27)
[2019-11-16] MEDS: HumaLOG INSULIN (NovoLOG) PER UNIT SC SCH ×4 (07:27→21:00)
[2019-11-16] MEDS: SUCRALFATE SUSP 1GM/10ML UD PO SCH ×3 (07:28→17:17)
[2019-11-16] MEDS: ENOXAPARIN 40 MG/0.4 ML SYRINGE (J1650) SC SCH (09:00)
[2019-11-16] MEDS: GABAPENTIN 400 MG CAP PO SCH ×3 (09:00→21:04)
--- NOTE | 2019-11-16 12:45 | IPN ---
RE-DICTATION DATE: 11/15/2019 Patient was seen in pediatrics. She was postop cholecystectomy. She was feeling well. She did not have any shortness of breath, chest pain or cardiopulmonary symptoms. PHYSICAL EXAMINATION: Vital signs are stable. Lungs are clear. Heart regular rhythm. Abdomen soft, nontender. Extremities no edema. IMPRESSION: 1. Stable postop day 1. Continue IV hydrocortisone due to prolonged recent steroid therapy and nebulized bronchodilator. 2. Diabetes: Continue sliding scale insulin. 3. Postop day #1: Per surgery.
--- NOTE | 2019-11-16 12:56 | IPN ---
DATE: 11/16/2019 Fidelina has developed small bowel obstruction. Apparently has umbilical hernia and going back to the operating room today. Her medical problems are stable. PHYSICAL EXAMINATION: Vital signs stable. Oxygen saturation 90%. She has a nasogastric tube in place. Lungs are entirely clear. Heart: Regular rhythm. Abdomen soft and nontender. LABS: Blood sugar is in 200 range. White count 11.5, hemoglobin 13. Electrolytes unremarkable. IMPRESSION: 1. Surgical abdomen. Per Dr. Mccormack. 2. Asthma/chronic obstructive pulmonary disease (COPD. Stable. Clear lung batres. 3. Chronic steroid therapy. Continue her IV hydrocortisone. As she is going back to the operating room, I would continue this until 48 hours after her most recent surgery and then she should go to prednisone 20 mg daily. 4. Diabetes mellitus. Insulin coverage.
[2019-11-16] MEDS ORDERED: BUPIVACAINE HCL 0.25% 30 ML VIAL As Ordered ONE (17:35)
[2019-11-16] MEDS ORDERED: MIDAZOLAM INJ 2 MG/2 ML VIAL (J2250) As Ordered ONE (17:41)
[2019-11-16] MEDS ORDERED: ROCURONIUM BROMIDE 50 MG/5 ML VIAL As Ordered ONE (17:41)
[2019-11-16] MEDS ORDERED: fentaNYL 250 MCG/5 ML INJECTION (J3010) As Ordered ONE (17:41)
[2019-11-16] MEDS ORDERED: propofoL 200 MG/20 ML VIAL As Ordered ONE ×2 (17:41→18:51)
[2019-11-16] MEDS ORDERED: LIDOCAINE 2% INJ 100 MG/5 ML SDV (FOR ANES.) As Ordered ONE (17:41)
[2019-11-16] MEDS ORDERED: SUGAMMADEX SODIUM 500 MG/5 ML VIAL (BRIDION) As Ordered ONE (18:45)
[2019-11-16] MEDS ORDERED: ONDANSETRON 4MG/2ML VIAL (J2405) As Ordered ONE (18:46)
[2019-11-16] MEDS ORDERED: dexameTHASONE 4 MG/ML 1ML VIAL (J1100) As Ordered ONE (18:46)
[2019-11-16] MEDS ORDERED: KETOROLAC 60 MG/2 ML VIAL (J1885) As Ordered ONE (18:57)
[2019-11-16] MEDS ORDERED: ALBUTEROL SULFATE 2.5 MG/0.5 ML INH NEB SOLN As Ordered ONE (19:24)
[2019-11-16] MEDS ORDERED: PERCOCET 5MG/325MG TAB PO PRN (20:00)
[2019-11-16] MEDS ORDERED: ONDANSETRON 4MG/2ML VIAL (J2405) IV PRN ×2 (20:00)
[2019-11-16] MEDS ORDERED: fentaNYL 100 MCG/2 ML INJECTION (J3010) IV PRN (20:00)
[2019-11-16] MEDS ORDERED: METOCLOPRAMIDE INJ 10MG/2ML VIAL (J2765) IV PRN (20:00)
[2019-11-16] MEDS ORDERED: PERCOCET 5MG/325MG TAB As Ordered ONE (20:03)
[2019-11-16] MEDS ORDERED: ALBUTEROL SULFATE 2.5 MG/0.5 ML INH NEB SOLN INH ONE (20:15)
[2019-11-16] MEDS: OMEPRAZOLE 20 MG CAP PO SCH (21:04)
[2019-11-17 00:30] VITALS: BP 141/68
[2019-11-17 01:30] VITALS: BP 137/63
[2019-11-17] MEDS: IPRATROPIUM 0.5MG/ALBUTEROL 2.5MG INH SOL UD 3ML (DUONEB)(J7620) NEB SCH ×3 (03:16→14:05)
[2019-11-17 04:30] VITALS: BP 144/75
[2019-11-17] MEDS: IBUPROFEN 600 MG TAB PO PRN (04:34)
[2019-11-17] MEDS: NS 1,000 ML IV SCH (04:36)
[2019-11-17] MEDS: HYDROCORTISONE 100 MG/2 ML VIAL (J1720 PER 1) IV SCH (05:55)
[2019-11-17 06:59] LABS: BASO % 0.3 % (0.0-1.0); HEMOGLOBIN 12.7 g/dl (12.0-15.5); LYMPH # 1.2 10^3/uL (1.5-5.0); LYMPH % 16.8 % (24.0-44.0); MEAN CORPUSCULAR HEMOGLOBIN 28.1 pg (27.0-33.0); MEAN CORPUSCULAR HGB CONC 32.6 g/dl (32.0-36.5); MEAN CORPUSCULAR VOLUME 86.3 fl (80.0-96.0); MONO # 0.5 10^3/uL (0.0-0.8); MONO % 6.6 % (0.0-5.0); NEUTROPHILS # 5.6 10^3/uL (1.5-8.5); PLATELET COUNT, AUTOMATED 243 10^3/uL (150-450); RED BLOOD COUNT 4.52 10^6/uL (4.00-5.40); WHITE BLOOD COUNT 7.4 10^3/uL (4.0-10.0)
[2019-11-17 07:19] LABS: ALBUMIN 2.6 GM/DL (3.2-5.2); ALT/SGPT 52 U/L (12-78); BILIRUBIN,TOTAL 0.2 MG/DL (0.2-1.0); BLOOD UREA NITROGEN 13 MG/DL (7-18); CALCIUM LEVEL 8.1 MG/DL (8.5-10.1); CARBON DIOXIDE LEVEL 27 MEQ/L (21-32); CHLORIDE LEVEL 111 MEQ/L (98-107); CREATININE FOR GFR 0.83 MG/DL (0.55-1.30); GLOMERULAR FILTRATION RATE > 60.0 (>51); GLUCOSE, FASTING 160 MG/DL (70-100); POTASSIUM SERUM 4.1 MEQ/L (3.5-5.1); SODIUM LEVEL 143 MEQ/L (136-145); TOTAL PROTEIN 5.8 GM/DL (6.4-8.2)
[2019-11-17] MEDS: HumaLOG INSULIN (NovoLOG) PER UNIT SC SCH (07:29)
[2019-11-17 08:00] VITALS: BP 137/67
[2019-11-17] MEDS ORDERED: metFORMIN (GLUCOPHAGE) 1000 MG TABLET PO SCH (08:00)
[2019-11-17] MEDS: GABAPENTIN 400 MG CAP PO SCH ×2 (08:58→15:58)
[2019-11-17] MEDS: ENOXAPARIN 40 MG/0.4 ML SYRINGE (J1650) SC SCH (08:59)
[2019-11-17] MEDS ORDERED: predniSONE 20 MG TAB PO SCH (09:00)
--- NOTE | 2019-11-17 09:15 | IPN ---
DATE: 11/17/2019 Fidelina feels markedly improved. She went back to the operating room (OR) yesterday. I do not have the operative report. She feels significantly better. She is eating and would like to go home. PHYSICAL EXAMINATION: Afebrile. Vital signs stable. Lungs entirely clear. Heart: Regular rhythm. Abdomen: Soft. Abdomen is dressed. No peripheral edema. LABS: White count 7.4, hemoglobin 12.7, platelets 243, sodium 143, potassium 4.1, BUN 13, creatinine 0.8, glucose 160. Blood sugars are 80 to 114. IMPRESSION: 1. Postoperative day #2 repeat surgery. Discharge is per surgery. Will await for Dr. Mccormack to round on her. I will defer to him when he thinks she can go home. At this point, this is a surgical case. 2. Chronic steroid therapy. Stop her IV cortisone. Start prednisone 10 mg daily. Her outpatient provider is the former Dr. Arnold and we have discussed the case and she is aware that the patient is now back on prednisone 20 mg daily and will need to reinitiate the steroid taper that patient had just completed before being admitted for this surgical problem. 3. Asthma/chronic obstructive pulmonary disease (COPD). Lungs are entirely clear and she has had no bronchospastic problems. 4. Diabetes. Continue sliding scale with coverage. At this point, we can stop the insulin coverage and put her back on her metformin in anticipation of discharge.
[2019-11-17] MEDS: NORCO, ANEXSIA 5/325MG TABLET (HYDROcodone/ACETAMINOPHEN) PO PRN (09:52)
[2019-11-17] MEDS ORDERED: HYDR-3715 PO (11:23)
[2019-11-17] MEDS ORDERED: MIRALAX *UNIT DOSE* 17GM PACKET PO ONE (11:30)
[2019-11-17] MEDS ORDERED: PRED20TA PO (14:07)
[2019-11-17 16:00] VITALS: BP 154/86
--- NOTE | 2019-11-21 09:46 | RO ---
DATE OF PROCEDURE: 11/16/2019 PREOPERATIVE DIAGNOSIS: Fascial dehiscence with bowel herniation and small bowel obstruction. POSTOPERATIVE DIAGNOSIS: Fascial dehiscence with bowel herniation and small bowel obstruction. PROCEDURE PERFORMED: Exploration of the supraumbilical abdominal incision with reduction of small bowel and release of small-bowel obstruction with closure of the fascial dehiscence. SURGEON: Pavan Mccormack MD DATA REVIEW SPECIALIST: Mehrdad Lao, MS III. ANESTHESIA: General. INDICATIONS FOR PROCEDURE: Patient is a 54-year-old woman who is two days postop from a laparoscopic cholecystectomy for acute cholecystitis. She had initially done very well following surgery but then began to complain of nausea with some vomiting and fullness. A CT scan revealed a herniation through a fascial dehiscence in the supraumbilical site. There was a loop of entrapped small bowel with a resulting small-bowel obstruction. She is now for exploration of this wound with reduction of the herniation and repair of her fascial dehiscence. OPERATIVE PROCEDURE: The patient was brought to the operating room and placed supine on the operating table. She was placed under general endotracheal anesthesia. The patient's abdomen was prepped and draped in a sterile fashion. In the course of her prep, the Steri-Strips were removed from her four upper abdominal incisions. Examination of the supraumbilical site showed a small bulge which was fairly subtle beneath the incision in the supraumbilical site. The skin edges were and the underlying Vicryl suture from the subcuticular closure was cut and the wound allowed to separate. Immediately beneath the skin a loop of small bowel was identified. The wound was gently opened by blunt finger dissection. The wound was so recent that there were no adhesions to the small bowel. I tried to gently reduce the small bowel by pressure without success. The small bowel was not particularly dilated and was clearly viable without any evidence of hemorrhage or infarction. Retractors were placed and inspection showed that there were several Vicryl sutures that had either become untied or broken. There were one or two sutures still intact at the top of the fascial closure and these were cut and removed. This provided adequate opening size to reduce the small bowel loop into the abdomen by gentle pressure. Palpation revealed no other fascial defects surrounding the incision. A small amount of serous fluid was identified within the abdomen. The fascia was then securely closed with interrupted sutures of #1 Vicryl. Slightly larger bites of fascia were taken. Once the incision was completely closed the subcutaneous tissues were approximated with a single Vicryl suture and the skin edges were approximated with a running subcuticular #4-0 Vicryl and Steri-Strips. Some 0.25% Marcaine was infiltrated along the incision. A sterile dressing was applied. Steri-Strips were placed on the other three trocar sites from her prior surgery. She tolerated the procedure well. She was awakened in the operating room, extubated and moved to the recovery room in stable condition.
== END 2019-11-17 17:30 | disposition home or self-care (01) | DRG 418 ==
LOC: M ED 08:36 → M ED INP 14:08 → M PED 15:45
PROVIDERS: ADMIT Family Medicine; ATTEND Internal Medicine
PROC: 0FT44ZZ Resection of Gallbladder, Percutaneous Endoscopic Approach (ICD-10-PCS; principal; 2019-11-14 13:45)
PROC: 0DN80ZZ Release Small Intestine, Open Approach (ICD-10-PCS; 2019-11-16)
DX: K80.10 Calculus of gallbladder with chronic cholecystitis without obstruction (principal); M32.12 Pericarditis in systemic lupus erythematosus; K56.609 Unspecified intestinal obstruction, unspecified as to partial versus complete obstruction; J44.9 Chronic obstructive pulmonary disease, unspecified; Z79.52 Long term (current) use of systemic steroids; E11.9 Type 2 diabetes mellitus without complications; F17.200 Nicotine dependence, unspecified, uncomplicated; Z88.0 Allergy status to penicillin; Z79.899 Other long term (current) drug therapy; Z79.84 Long term (current) use of oral hypoglycemic drugs; F41.8 Other specified anxiety disorders; M79.7 Fibromyalgia; Z90.79 Acquired absence of other genital organ(s)

== ENCOUNTER → 2020-03-27 | Outpatient (CLI) | payer MEDICARE ==
[~2020-03-27] MED LIST changes: +ALEN10TA5 PO; +BENL200I SC; +GABA-845 PO; +GABA600T4 PO; +IBUP-1022 PO; +PRED10PA PO; +PROAAER10 INH; +TRAZ-252 PO; +duoneb INH
[2020-03-27 18:10] LABS: APPEARANCE, URINE CLEAR (CLEAR); BACTERIA, URINE AUTO NEGATIVE (NEGATIVE); BILIRUBIN, URINE AUTO NEGATIVE (NEGATIVE); BLOOD, URINE BLOOD NEGATIVE (NEGATIVE); COLOR, URINE YELLOW (YELLOW); GLUCOSE, URINE (UA) AUTO 1+ mg/dL (NEGATIVE); KETONE, URINE AUTO NEGATIVE (NEGATIVE); LEUKOCYTE ESTERASE, URINE AUTO NEGATIVE (NEGATIVE); MUCUS, URINE SMALL (NEGATIVE); NITRITE, URINE AUTO NEGATIVE (NEGATIVE); PROTEIN, URINE AUTO NEGATIVE (NEGATIVE); RBC, URINE AUTO 0 /HPF (0-3); SPECIFIC GRAVITY URINE AUTO 1.026 (1.002-1.035); SQUAMOUS EPITHELIAL CELL UR AU 0 /HPF (0-6); UROBILINOGEN, URINE AUTO 0.2 mg/dL (0.0-2.0); WBC, URINE AUTO 0 /HPF (0-3)
[2020-03-27 19:01] LABS: TOTAL PROTEIN,RANDOM URINE 16.6 MG/DL (0.0-12.0)
[2020-03-27 19:03] LABS: C REACTIVE PROTEIN QUANTITATIV 0.59 MG/DL (0.00-0.30); URIC ACID 1.9 MG/DL (2.6-6.0)
--- NOTE | 2020-03-28 01:50 | REP ---
BILATERAL HAND: REASON: Ganglion cyst/tenosynovitis. COMPARISON: None. FINDINGS: The joint spaces are symmetric and relatively well maintained. There is no evidence of acute fracture or destructive osseous lesion. IMPRESSION: Negative. If tenosynovitis or a ganglion cyst is of clinical concern, then I would recommend an MRI before and after intravenous gadolinium. Electronically Signed by Enrico Ryder DO 03/28/2020 08:10 A
--- NOTE | 2020-03-28 01:52 | REP ---
FOOT: REASON FOR EXAM: Tenosynovitis/ganglion cyst/toe pain. PRIORS: None. FINDINGS: The joint spaces are symmetric and relatively well maintained. There is no evidence of acute fracture or destructive osseous lesion. IMPRESSION: Negative. If tenosynovitis, ganglion cyst, or osteomyelitis is of clinical concern, then pre and post gadolinium-enhanced MRI is recommended. Electronically Signed by Enrico Ryder DO 03/28/2020 08:10 A
[2020-03-29 10:45] LABS: HEPATITIS B SURFACE ANTIBODY POSITIVE (POSITIVE)
[2020-03-29 10:56] LABS: HEPATITIS B SURFACE ANTIGEN NEGATIVE (NEGATIVE)
[2020-03-29 11:25] LABS: HEPATITIS C VIRUS ABY INDEX 0.1 INDEX (<0.8)
[2020-03-30 10:12] LABS: HEPATITIS B CORE ANTIBODY IGG Negative (Negative)
== END ==
LOC: M WUC 15:10
PROVIDERS: ATTEND Internal Medicine Rheumatology
DX: M32.9 Systemic lupus erythematosus, unspecified (principal); M25.40 Effusion, unspecified joint

== ENCOUNTER → 2020-05-02 | Outpatient (CLI) | payer MEDICARE | LOC: M LABSMTC 11:15 | PROVIDERS: ATTEND Anesthesiology | DX: Z01.812 Encounter for preprocedural laboratory examination (principal); Z20.828 Contact with and (suspected) exposure to other viral communicable diseases ==

== ENCOUNTER 2020-05-07 08:54 | Day surgery (SDC) | payer MEDICARE ==
[~2020-05-07] VITALS: Ht 167.6 cm; Wt 98.8 kg
[~2020-05-07 08:54] MED LIST changes: -GABA600T4 PO; -PRED10PA PO; -PROAAER10 INH; -duoneb INH
[2020-05-07] MEDS ORDERED: NS 1,000 ML IV ONE (10:30)
[2020-05-07] MEDS ORDERED: LIDOCAINE 2% 100MG/5ML SDV (FOR ANES.) As Ordered ONE (10:57)
[2020-05-07] MEDS ORDERED: propofoL 500 MG/50 ML VIAL As Ordered ONE ×3 (10:57→12:27)
[2020-05-07] MEDS ORDERED: IPRATROPIUM 0.5MG/ALBUTEROL 2.5MG INH SOL UD 3ML (DUONEB) As Ordered ONE (12:46)
[2020-05-07] MEDS ORDERED: ALBUTEROL SULFATE 2.5 MG/0.5 ML INH NEB SOLN INH ONE (13:15)
[2020-05-07] MEDS ORDERED: SODIUM CHLORIDE 0.9% 3ML NEB SOLUTION FOR INHALATION NEB ONE (13:15)
[2020-05-07 13:18] VITALS: BP 128/98
--- NOTE | 2020-05-22 11:30 | ROOR ---
Patient Name: Fidelina Morejon Procedure Date: 05/07/2020 10:51 AM Date of : 1965 Age: 54 Room: [facility], [facility] Gender: Female Note Status: Finalized Procedure: Colonoscopy Indications: Rectal bleeding, Constipation Providers: Pavan Mccormack MD Referring MD: Pallavi Santoyo Do Requesting Provider: Medicines: Monitored Anesthesia Care Complications: No immediate complications. Procedure: Pre-Anesthesia Assessment: - Prior to the procedure, a History and Physical was performed, and patient medications and allergies were reviewed. The patient is competent. The risks and benefits of the procedure and the sedation options and risks were discussed with the patient. All questions were answered and informed consent was obtained. Patient identification and proposed procedure were verified by the physician, the nurse and the anesthesiologist in the procedure room. Mental Status Examination: alert and oriented. CV Examination: regular rate and rhythm. Prophylactic Antibiotics: The patient does not require prophylactic antibiotics. Prior Anticoagulants: The patient has taken no previous anticoagulant or antiplatelet agents. ASA Grade Assessment: III - A patient with severe systemic disease. After reviewing the risks and benefits, the patient was deemed in satisfactory condition to undergo the procedure. The anesthesia plan was to use monitored anesthesia care (MAC). Immediately prior to administration of medications, the patient was re-assessed for adequacy to receive sedatives. The heart rate, respiratory rate, oxygen saturations, blood pressure, adequacy of pulmonary ventilation, and response to care were monitored throughout the procedure. The physical status of the patient was re-assessed after the procedure. The Colonoscope was introduced through the anus and advanced to the cecum, identified by appendiceal orifice and ileocecal valve. The colonoscopy was unusually difficult due to significant looping of scope and frequent nearly continuous coughing during parts of the procedure. The patient tolerated the procedure well. The quality of the bowel preparation was good. Findings: Hemorrhoids were found on perianal exam. Multiple large-mouthed diverticula were found in the entire colon. Two sessile polyps were found in the descending colon. The polyps were 5 to 10 mm in size. These polyps were removed with a hot snare. Resection and retrieval were complete. A 20 mm polyp was found in the sigmoid colon. The polyp was semi-pedunculated. The polyp was removed with a hot snare. Resection and retrieval were complete. To prevent bleeding and reinforce the colonic wall after the polypectomy, four hemostatic clips were successfully placed (MR conditional). There was no bleeding at the end of the procedure. Impression: - Hemorrhoids found on perianal exam. - Diverticulosis in the entire examined colon. - Two 5 to 10 mm polyps in the descending colon, removed with a hot snare. Resected and retrieved. - One 20 mm polyp in the sigmoid colon, removed with a hot snare. Resected and retrieved. Clips (MR conditional) were placed. Recommendation: - Discharge patient to home. - Resume previous diet. - Continue present medications. - Await pathology results. Pavan Mccormack MD Pavan Mccormack MD 05/07/2020 3:00:42 PM Number of Addenda: 0 Note Initiated On: 05/07/2020 10:51 AM Estimated Blood Loss: Estimated blood loss was minimal.
--- NOTE | 2020-06-11 09:45 | REP ---
PORTABLE SUPINE AND UPRIGHT ABDOMEN HISTORY: Patient is status post colonoscopy. FINDINGS: The intestinal gas pattern is nonspecific. There is not evidence of free intraperitoneal area. The organ silhouettes in so far as delineated are within normal limits. There are multiple surgical clips/metallic radiodensities in the pelvis. The osseous structures are within normal limits. IMPRESSION: Nonspecific intestinal gas pattern. No evidence of free air. MTDD
[2020-07-12] MEDS ORDERED: PRED10PA PO (11:09)
[2020-07-12] MEDS ORDERED: GABA600T4 PO (11:09)
[2020-07-12] MEDS ORDERED: PROAAER10 INH (11:09)
[2020-07-12] MEDS ORDERED: duoneb INH (11:09)
== END 2020-05-07 15:15 | disposition home or self-care (01) ==
LOC: M OPP 08:54
PROVIDERS: ATTEND Surgery
DX: K64.8 Other hemorrhoids (principal); K63.5 Polyp of colon; K62.5 Hemorrhage of anus and rectum; K59.00 Constipation, unspecified; K57.30 Diverticulosis of large intestine without perforation or abscess without bleeding; E11.9 Type 2 diabetes mellitus without complications; F17.210 Nicotine dependence, cigarettes, uncomplicated; Z79.84 Long term (current) use of oral hypoglycemic drugs; Z79.899 Other long term (current) drug therapy; Z88.0 Allergy status to penicillin

== ENCOUNTER 2020-05-10 09:24 | Emergency (ER) | payer MEDICARE ==
[~2020-05-10] VITALS: Ht 177.8 cm; Wt 101.2 kg
[2020-05-10] MEDS ORDERED: ONDANSETRON 4MG/2ML VIAL IV ONE (10:00)
[2020-05-10] MEDS ORDERED: NS 1,000 ML IV ONE (10:00)
[2020-05-10] MEDS ORDERED: MORPHINE 4 MG/ML 1ML VIAL/SYRINGE (J2270) IV PRN (10:00)
[2020-05-10 10:39] LABS: BASO # 0.1 10^3/uL (0.0-0.2); BASO % 0.5 % (0.0-1.0); EOS # 0.2 10^3/uL (0.0-0.5); HEMATOCRIT 47.5 % (36.0-47.0); HEMOGLOBIN 15.3 g/dl (12.0-15.5); LYMPH # 2.8 10^3/uL (1.5-5.0); LYMPH % 26.5 % (24.0-44.0); MEAN CORPUSCULAR HEMOGLOBIN 28.4 pg (27.0-33.0); MEAN CORPUSCULAR HGB CONC 32.2 g/dl (32.0-36.5); MEAN CORPUSCULAR VOLUME 88.3 fl (80.0-96.0); MONO # 0.9 10^3/uL (0.0-0.8); MONO % 8.3 % (0.0-5.0); NEUTROPHILS # 6.7 10^3/uL (1.5-8.5); NEUTROPHILS % 62.4 % (36.0-66.0); PLATELET COUNT, AUTOMATED 285 10^3/uL (150-450); RED BLOOD COUNT 5.38 10^6/uL (4.00-5.40); WHITE BLOOD COUNT 10.6 10^3/uL (4.0-10.0)
[2020-05-10 10:53] LABS: INR 0.92; PROTHROMBIN TIME 12.6 SECONDS (11.8-14.0)
[2020-05-10 10:58] LABS: ALBUMIN 3.1 GM/DL (3.2-5.2); ALT/SGPT 13 U/L (12-78); BILIRUBIN,DIRECT < 0.1 MG/DL (0.0-0.2); BILIRUBIN,TOTAL 0.3 MG/DL (0.2-1.0); BLOOD UREA NITROGEN 12 MG/DL (7-18); CALCIUM LEVEL 8.6 MG/DL (8.5-10.1); CARBON DIOXIDE LEVEL 30 MEQ/L (21-32); CHLORIDE LEVEL 108 MEQ/L (98-107); GLOMERULAR FILTRATION RATE > 60.0 (>51); GLUCOSE, FASTING 115 MG/DL (70-100); LIPASE 222 U/L (73-393); POTASSIUM SERUM 3.8 MEQ/L (3.5-5.1); SODIUM LEVEL 142 MEQ/L (136-145); TOTAL PROTEIN 6.6 GM/DL (6.4-8.2)
[2020-05-10] MEDS ORDERED: ISOVUE-370 76% 100ML VIAL As Ordered ONE (11:20)
--- NOTE | 2020-05-10 11:51 | REPVR ---
PROCEDURE INFORMATION: Exam: CT Abdomen And Pelvis With Contrast Exam date and time: 05/10/2020 11:15 AM Age: 54 years old Clinical indication: Abdominal pain; Additional info: Abd pain S/P colonoscopy TECHNIQUE: Imaging protocol: Computed tomography of the abdomen and pelvis with intravenous contrast. Radiation optimization: All CT scans at this facility use at least one of these dose optimization techniques: automated exposure control; mA and/or kV adjustment per patient size (includes targeted exams where dose is matched to clinical indication); or iterative reconstruction. Contrast material: ISOVUE 370; Contrast volume: 100 ml; Contrast route: INTRAVENOUS (IV); COMPARISON: 1. CT ABD/PEL W/IV CONTRAST ONLY 11/13/2019 10:[address] ABD PELVIS WITH CONTRAST 05/17/2013 10:30:23 PM FINDINGS: Lungs: Mild scarring in the lung bases. Liver: Subtle hypodense lesion in the right hepatic lobe, measuring 2.8 cm x 2.1 cm. This is essentially unchanged since 2012, compatible with a benign lesion, most likely a hemangioma. Additional 0.6 cm hypodense right hepatic lobe lesion, also stable since 2012, likely a tiny cyst or hemangioma. Gallbladder and bile ducts: There has been a cholecystectomy. Unchanged minimal prominence of the extrahepatic duct, likely reflecting dynamic changes following cholecystectomy. Pancreas: Diffuse abnormal distention of the main pancreatic duct, measuring up to 6 mm in diameter. This is unchanged since the recent comparison study. No abrupt cut off of the duct. Spleen: Normal. No splenomegaly. Adrenals: Normal. No mass. Kidneys and ureters: Normal. No hydronephrosis. Stomach and bowel: Small duodenal periampullary diverticulum. No adjacent inflammation. Colonic diverticulosis. Moderate circumferential wall thickening of the mid sigmoid colon, unchanged since the recent prior CT. Stable linear fat stranding between the mid sigmoid colon and the vaginal cuff, likely scarring. There is a new metallic clip within the mid sigmoid colon. No bowel obstruction. Appendix: No evidence of appendicitis. Intraperitoneal space: No free air. No significant fluid collection. Vasculature: Unremarkable. No abdominal aortic aneurysm. Lymph nodes: Unremarkable. No enlarged lymph nodes. Bladder: Unremarkable as visualized. Reproductive: The patient appears to be status post hysterectomy. Bones/joints: Degenerative change of the spine. Soft tissues: Unremarkable. IMPRESSION: 1. No acute abnormality is identified within the abdomen/pelvis. 2. Stable circumferential wall thickening of the mid sigmoid colon, with adjacent scar tissue. 3. Colonic and duodenal diverticulosis. 4. Diffuse prominence of the main pancreatic duct, unchanged since the more recent comparison study. This is nonspecific. Consider further evaluation with MRCP. Electronically signed by: Lizzy Márquez On 05/10/2020 11:50:48 AM
[2020-05-10] MEDS ORDERED: IPRATROPIUM 0.5MG/ALBUTEROL 2.5MG INH SOL UD 3ML (DUONEB) NEB ONE (12:00)
[2020-05-10 14:57] VITALS: BP 161/95
[2020-07-12] MEDS ORDERED: GABA600T4 PO (11:09)
[2020-07-12] MEDS ORDERED: PRED10PA PO (11:09)
[2020-07-12] MEDS ORDERED: PROAAER10 INH (11:09)
[2020-07-12] MEDS ORDERED: duoneb INH (11:09)
== END 2020-05-10 15:00 | disposition home or self-care (01) ==
LOC: M ED 09:24
DX: K91.840 Postprocedural hemorrhage of a digestive system organ or structure following a digestive system procedure (principal); K62.5 Hemorrhage of anus and rectum; E11.9 Type 2 diabetes mellitus without complications; M79.7 Fibromyalgia; J44.9 Chronic obstructive pulmonary disease, unspecified; Z79.84 Long term (current) use of oral hypoglycemic drugs; Z79.52 Long term (current) use of systemic steroids; Z79.899 Other long term (current) drug therapy; Z88.0 Allergy status to penicillin; Z98.890 Other specified postprocedural states; Z86.010 Personal history of colon polyps; Z86.79 Personal history of other diseases of the circulatory system
CPT/HCPCS: 74177; 80048; 80076; 83690; 85025; 85610; 86850; 86900; 86901; 93041; 94640; 96374; 96375; 99284; J2270; J2405; Q9967

== ENCOUNTER → 2020-06-14 | Outpatient (CLI) | payer MEDICARE ==
[~2020-06-14] MED LIST changes: +LIQUID POLIBAR PLUS 105% w/v 1900ML BTL As Ordered ONE
--- NOTE | 2020-06-19 11:30 | REP ---
SINGLE CONTRAST BARIUM ENEMA This procedure was performed by DANY Lopez, under the direct supervision of Dr. Degroot. The images were reviewed with Dr. Degroot prior to dictation. The senior grant writer film shows no organomegaly or pathologic masses. The gas pattern is nonspecific. Liquid barium was instilled into the colon in a retrograde flow to the level of the mid sigmoid. Either due to narrowing or colonic spasm, the barium did not progress past the mid sigmoid region. Multiple attempts were made to try to get the barium further into the sigmoid colon to visualize the colovaginal fistula, but the patient could not tolerate it. Multiple diverticula are visualized in the retrosigmoid colon. IMPRESSION: 1. Multiple diverticula in the retrosigmoid colon. 2. Colovaginal fistula was not opacified possibly due to limitations of the exam. 1.2 minutes of fluoroscopy time was utilized for this procedure. PENNY
== END ==
LOC: M RAD 10:33
PROVIDERS: ATTEND Surgery
DX: K60.4 Rectal fistula (principal); K57.30 Diverticulosis of large intestine without perforation or abscess without bleeding

== ENCOUNTER → 2020-07-10 | Outpatient (REF) | payer MEDICARE ==
[~2020-07-10] MED LIST changes: -LIQUID POLIBAR PLUS 105% w/v 1900ML BTL As Ordered ONE
== END ==
LOC: M SFHCPLAZ 09:39
PROVIDERS: ATTEND Family Medicine
DX: Z01.818 Encounter for other preprocedural examination (principal); E11.9 Type 2 diabetes mellitus without complications

== ENCOUNTER → 2020-07-15 | Outpatient (REF) | payer MEDICARE ==
[~2020-07-15] MED LIST changes: +GABA600T4 PO; +NEOM500T PO; +PRED10PA PO; +PROAAER10 INH; +duoneb INH
== END ==
LOC: M SFHCPLAZ 13:27
PROVIDERS: ATTEND Family Medicine
DX: Z01.818 Encounter for other preprocedural examination (principal); Z53.9 Procedure and treatment not carried out, unspecified reason

== ENCOUNTER → 2020-07-17 | Outpatient (CLI) | payer MEDICARE ==
[~2020-07-17] MED LIST changes: -NEOM500T PO
[2020-07-17 20:00] LABS: BASO % 0.4 % (0.0-1.0); HEMATOCRIT 48.3 % (36.0-47.0); HEMOGLOBIN 15.3 g/dl (12.0-15.5); LYMPH # 1.5 10^3/uL (1.5-5.0); LYMPH % 20.7 % (24.0-44.0); MEAN CORPUSCULAR HEMOGLOBIN 27.9 pg (27.0-33.0); MEAN CORPUSCULAR HGB CONC 31.7 g/dl (32.0-36.5); MONO # 0.4 10^3/uL (0.0-0.8); NEUTROPHILS # 5.2 10^3/uL (1.5-8.5); NEUTROPHILS % 73.8 % (36.0-66.0); PLATELET COUNT, AUTOMATED 264 10^3/uL (150-450); RED BLOOD COUNT 5.49 10^6/uL (4.00-5.40)
[2020-07-17 20:32] LABS: ALBUMIN 3.6 GM/DL (3.2-5.2); ALT/SGPT 16 U/L (12-78); BILIRUBIN,TOTAL 0.2 MG/DL (0.2-1.0); BLOOD UREA NITROGEN 15 MG/DL (7-18); CARBON DIOXIDE LEVEL 26 MEQ/L (21-32); CHLORIDE LEVEL 106 MEQ/L (98-107); CREATININE FOR GFR 0.92 MG/DL (0.55-1.30); FREE T4 1.04 NG/DL (0.76-1.46); GLOMERULAR FILTRATION RATE > 60.0 (>51); GLUCOSE, FASTING 138 MG/DL (70-100); POTASSIUM SERUM 4.7 MEQ/L (3.5-5.1); SODIUM LEVEL 139 MEQ/L (136-145); TOTAL PROTEIN 6.6 GM/DL (6.4-8.2)
[2020-07-17 21:21] LABS: HEMOGLOBIN A1c 6.1 %
== END ==
LOC: M WUC 15:36
DX: Z01.818 Encounter for other preprocedural examination (principal); Z79.899 Other long term (current) drug therapy

== ENCOUNTER → 2020-07-17 | Outpatient (CLI) | payer MEDICARE ==
--- NOTE | 2020-07-17 16:44 | REP ---
INDICATION: PRE OP. COMPARISON: 11/13/2019 FINDINGS: The superior mediastinal structures are midline. The cardiac silhouette is unremarkable in size, shape, and position. The diaphragmatic surfaces of the lungs are regular, and the costophrenic angles are clear. The pulmonary batres are clear. The imaged osseous structures are intact. IMPRESSION: There is no acute cardiopulmonary disease. No significant change compared to the prior exam. <Electronically signed by Enrico Ryder > 07/17/20 1640
== END ==
LOC: M WUC 15:42
PROVIDERS: ATTEND Surgery
DX: Z01.818 Encounter for other preprocedural examination (principal); J44.9 Chronic obstructive pulmonary disease, unspecified; Z79.899 Other long term (current) drug therapy

== ENCOUNTER → 2020-07-21 | Outpatient (CLI) | payer MEDICARE | LOC: M LABSMTC 08:38 | PROVIDERS: ATTEND Anesthesiology | DX: Z01.812 Encounter for preprocedural laboratory examination (principal); Z20.828 Contact with and (suspected) exposure to other viral communicable diseases | CPT/HCPCS: C9803; U0003 ==

== ENCOUNTER 2020-07-26 07:30 | Inpatient (IN) | payer MEDICARE ==
--- NOTE | 2020-07-12 06:48 | HPE ---
DATE OF ANTICIPATED ADMISSION: 07/26/2020 ADMITTING DIAGNOSIS: Elective robotic takedown of colovaginal fistula. 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 She has had multiple episodes of diverticulitis in the past. No recent surgeries. She did have her hysterectomy in 2011 and she apparently had some issues with some infection immediately postoperative from that as well that may have resulted in some adhesions from the sigmoid to the vaginal cuff at that time. She just started having increased pelvic pain from the diverticulitis recently and is noted to have this possible fistula. I did send her for a barium enema to try to confirm the fistula, but due to significant looping in her sigmoid and pain, she was unable to tolerate the procedure. She was placed on Cipro for the diverticulitis and her recent pelvic pains, which did help improve it significantly. Denies any blood in her stool and no other complications. Her most recent colonoscopy was just on 05/07/[address] Mccormack. PAST MEDICAL HISTORY: 1. Asthma. 2. Diabetes. 3. Heart disease with recurrent pericarditis. 4. Chronic obstructive pulmonary disease (COPD). 5. Lupus. 6. Asthma. PAST SURGICAL HISTORY: 1. Dilatation and curettage (D&C). 2. Exploratory laparoscopy. 3. Tubal ligation. 4. . 5. Ovarian cystectomy. 6. Hysterectomy. 7. Gallbladder surgery laparoscopic. 8. Incisional hernia repair with release of a small bowel obstruction. SOCIAL HISTORY: Smokes a pack a day. Denies drug or alcohol abuse. FAMILY HISTORY: Non-contributory. REVIEW OF SYSTEMS: Pertinent positives and negatives as stated in the HPI. PHYSICAL EXAMINATION: GENERAL: The patient is alert and oriented (A&O) x3 in no acute distress. VITAL SIGNS: Stable and she is afebrile. Blood pressure 150/90. HEENT: Pupils are equal, round, reactive to light and accommodation. HEART: S1, S2. Regular rate and rhythm. LUNGS: Clear to auscultation bilaterally. ABDOMEN: Soft, nondistended. Slight tenderness suprapubic only. No rebound or guarding. No ventral hernias. EXTREMITIES: No clubbing, cyanosis, or edema. 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 Recommendation at this time is to proceed with robotic sigmoid resection with takedown of the fistula. Risks and benefits of the procedure not limited to, but including bleeding, infection, hernia formation, damage to surrounding structures, anastomotic leak, and need for further surgery were discussed in detail with the patient. Informed consent was obtained and procedure was planned for 07/26/2020. She will be admitted that day and kept in the hospital for anywhere from three to five days. Consent was obtained by her in the office and procedure was planned. PENNY
[~2020-07-26] VITALS: Ht 177.8 cm; Wt 100.7 kg
[2020-08-16] MEDS ORDERED: FLAG500T PO (11:33)
[2020-08-16] MEDS ORDERED: NEOM500T PO (11:33)
--- NOTE | 2020-08-22 09:58 | HPE ---
PRE-HOSPITAL HISTORY AND PHYSICAL DATE OF ADMISSION: 08/26/2020 HISTORY OF PRESENT ILLNESS: Patient is a 55-year-old female who is presenting with a possible colovaginal fistula after having some stool out of her vagina and what appeared to be a positive fistula on both a CT scan as well as a vaginal exam by her mortgage loan counselor. She has had multiple episodes of diverticulitis in the past as well as a hysterectomy in 2011. She apparently had some infection immediately post-operative from that procedure that likely resulted in some adhesions. She has recently started having increased pelvic pain from the diverticulitis as well as possible fistula that could be seen on the CT. I sent her for a barium enema to try and confirm the fistula, but due to significant looping of her sigmoid and the pain she was unable to tolerate that procedure. Colonoscopy was also done, but was not able to directly visualize any fistula as well and that was completed on 05/07/2020. She denies any blood in her stool or any other complications currently. PAST MEDICAL HISTORY: 1. Asthma. 2. Diabetes. 3. Heart disease with recurrent pericarditis. 4. COPD. 5. Lupus. PAST SURGICAL HISTORY: 1. D&C. 2. Exploratory laparoscopy. 3. Tubal ligation. 4. section. 5. Ovarian cystectomy. 6. Hysterectomy. 7. Gallbladder surgery. 8. Incisional hernia repair with release of small bowel obstruction. SOCIAL HISTORY: Smokes a pack a day, denies drug or alcohol abuse. FAMILY HISTORY: Noncontributory. REVIEW OF SYSTEMS: Pertinent positives and negatives as stated in the HPI. PHYSICAL EXAMINATION: General: Patient is A&O times 3, in no acute distress. Vital signs are stable; afebrile, blood pressure 150/90. HEENT: Pupils equal, round and reactive to light and accommodation. Heart: S1 and S2 regular rate and rhythm. Lungs: Clear to auscultation bilaterally. Abdomen: Soft, nondistended, slight tenderness suprapubic only. No guarding or rebound. No ventral hernias. Extremities: No clubbing, cyanosis or edema. 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 Recommendation is to proceed with a robotic sigmoid resection with take-down of the fistula. Risks and benefits of the procedure not limited to, but including bleeding, infection, hernia formation, damage to surrounding structures, anastomotic leak and need for further surgery were discussed in detail with the patient. Informed consent was obtained and procedure was planned. She will be admitted and kept in the hospital anywhere from 3-5 days. Consent was obtained by her in the office and the procedure was planned. PENNY
[2020-08-26] VITALS (7 sets, daily range): BP systolic 154–169; BP diastolic 87–97; O2SAT 97
[2020-08-26] MEDS ORDERED: cefoTEtan DISODIUM 2 GM in D5W MINI-BAG PLUS 50 ML IV ONE (07:00)
[2020-08-26] MEDS ORDERED: LR 1,000 ML IV ONE (07:00)
[2020-08-26] MEDS ORDERED: SUGAMMADEX SODIUM 500 MG/5 ML VIAL (BRIDION) As Ordered ONE (07:48)
[2020-08-26] MEDS ORDERED: LIDOCAINE 2% 100MG/5ML SDV (FOR ANES.) As Ordered ONE (07:48)
[2020-08-26] MEDS ORDERED: propofoL 200 MG/20 ML VIAL As Ordered ONE (07:48)
[2020-08-26] MEDS ORDERED: ONDANSETRON 4MG/2ML VIAL As Ordered ONE ×2 (07:48→08:13)
[2020-08-26] MEDS ORDERED: HYDROmorphone HCL 2 MG/ML 1ML VIAL (J1170) As Ordered ONE (07:48)
[2020-08-26] MEDS ORDERED: ROCURONIUM BROMIDE 50 MG/5 ML VIAL As Ordered ONE ×2 (07:48→10:15)
[2020-08-26] MEDS ORDERED: dexameTHASONE 4 MG/ML 1ML VIAL (J1100 PER 1MG) As Ordered ONE (07:48)
[2020-08-26] MEDS ORDERED: ACETAMINOPHEN 1000MG 100ML IV BTL (OFIRMEV) (J0131 PER 10MG) As Ordered ONE (07:49)
[2020-08-26] MEDS ORDERED: fentaNYL 100 MCG/2 ML INJECTION (J3010) As Ordered ONE (07:49)
[2020-08-26] MEDS ORDERED: MIDAZOLAM INJ 2MG/2ML VIAL (J2250 PER 1MG) As Ordered ONE (07:49)
[2020-08-26] MEDS ORDERED: LIDOCAINE W/EPINEPHRINE 1% 20ML VIAL As Ordered ONE (08:09)
[2020-08-26] MEDS ORDERED: ALBUTEROL SULFATE 2.5 MG/0.5 ML INH NEB SOLN As Ordered ONE (08:13)
[2020-08-26] MEDS ORDERED: SCOPOLAMINE 1MG TRANSDERMAL PATCH As Ordered ONE (08:13)
[2020-08-26] MEDS ORDERED: ALBUTEROL SULFATE 2.5 MG/0.5 ML INH NEB SOLN INH ONE (08:30)
[2020-08-26] MEDS ORDERED: ONDANSETRON 4MG/2ML VIAL IV ONE (08:30)
[2020-08-26] MEDS ORDERED: SCOPOLAMINE 1MG TRANSDERMAL PATCH TOP ONE (08:30)
[2020-08-26] MEDS ORDERED: ERTAPENEM SODIUM 1 GM in NS MINI-BAG PLUS 50 ML IV ONE (09:00)
[2020-08-26] MEDS ORDERED: METOPROLOL 5 MG/5 ML VIAL As Ordered ONE (11:16)
[2020-08-26] MEDS ORDERED: MORPHINE 2 MG/ML 1ML VIAL (J2270) IV PRN (12:45)
[2020-08-26] MEDS ORDERED: NORCO, ANEXSIA 5/325MG TABLET (HYDROcodone/ACETAMINOPHEN) PO PRN (12:45)
[2020-08-26] MEDS ORDERED: traZODone 50 MG TAB PO PRN (12:45)
[2020-08-26] MEDS ORDERED: ALBUTEROL 90 MCG/ACT 8GM HFA INHALER INH PRN (12:45)
[2020-08-26] MEDS ORDERED: ONDANSETRON 4MG/2ML VIAL IV PRN ×2 (12:45→13:15)
[2020-08-26] MEDS ORDERED: fentaNYL 100 MCG/2 ML INJECTION (J3010) IV PRN (13:15)
[2020-08-26] MEDS ORDERED: LR 1,000 ML IV SCH (13:15)
[2020-08-26] MEDS ORDERED: MEPERIDINE INJ 25 MG/ML VIAL (J2175) IV PRN (13:15)
[2020-08-26] MEDS ORDERED: METOCLOPRAMIDE INJ 10MG/2ML VIAL (J2765 PER 1) IV PRN (13:15)
--- NOTE | 2020-08-26 13:39 | RO ---
OPERATIVE NOTE DATE OF OPERATION: PREOPERATIVE DIAGNOSIS: Colovaginal fistula. POSTOPERATIVE DIAGNOSIS: Colovaginal fistula. PROCEDURE: Robotic-assisted sigmoid colectomy with colovaginal fistula take-down. SURGEON: Antolin Lagos DO [facility] SCULLION: Dr. Gutierrez who assisted with anastomosis and closure of the abdomen. ANESTHESIA: General ESTIMATED BLOOD LOSS: 50 ml COMPLICATIONS: None. INDICATIONS FOR PROCEDURE: The patient is a 55-year-old female who presents with history of a possible colovaginal fistula after it was visualized by her MAINTENANCE SUPERINTENDENT. Recommendation was to proceed with robotic sigmoid colectomy with take-down of fistula. Risks and benefits of procedure not limited to but including bleeding, infection, hernia formation, damage to surrounding structures, anastomotic leak and need for further surgery were discussed in detail with the patient. Informed consent was obtained and procedure was planned. DESCRIPTION OF PROCEDURE: The patient brought back to the operating room 7. After sufficient sedation, the abdomen was sterilely prepped and draped. Next a time-out was done to confirm proper patient and proper procedure. Following that an 8 mm incision was made in the left lower quadrant, Veress needle was inserted and the abdomen was insufflated to 50 mmHg. The Veress needle was then removed and an 8 mm Optiview port was used to gain access to the abdomen. Once the abdomen was entered, it was examined for signs of injury. Everything looked okay. Three more ports were then placed, one superior to the umbilicus in the midline, one in the right mid abdomen, and a 12 mm port in the right lower quadrant. Next the abdomen was examined. The peritoneal adhesions to the left lateral pelvic wall were gently taken down with sharp dissection. Dissection was then carried out into the pelvis along the left lateral wall. There was significant scarring to the anterior rectus sigmoid colon into the previous vaginal cuff. Very thick, inflamed tissue was dissected free. Once that was completed, the fistula was taken down and the colon was able to be mobilized much easier. There was significant fat wrapping around the colon making it very difficult for dissection. An area around the pelvic rim was identified. The sigmoid colon was elevated up there. Mesocolon was dissected until there was a window in it and then while retracting from there, I was able to dissect through the mesocolon and mesorectum heading distally. Once I was able to free up enough of the colon that I could find a nice soft spot in the mid rectum free of inflammation, the fat was dissected circumferentially until the colon was easy to identify. Green load with robotic 60 mm stapler was then used to transect the rectum. Once that was completed, the colon was mobilized down into the pelvis to make sure there was enough distance for resection. A small laparotomy was then made periumbilically and the wound protector was placed. The colon was brought out through the incision. The colotomy was made and a 29 mm anvil was placed for an EEA stapler. This was held in place while the colon was then transected with a ALIZE 100 blue load stapler. The anvil was then pushed through the end. The 2-0 Prolene pursestring suture was then placed around it to relieve tension on the anvil. Anvil and colon were then placed back inside the abdomen. Wound protector was removed. The fascia was then closed with #1 PDS suture. Once that was completed, the abdomen was re-insufflated. The pelvis was examined. EEA stapler was brought in through the rectum, connected to the anvil, and a stapled anastomosis was created. After doing so a layer of tisseel was placed around the anastomosis site. The pelvis was instilled with some saline and air was placed through the rectum to make sure there was no sign of any air leaks. Pressure test was negative. Two donuts on the specimen on the stapler were normal as well and intact. The pelvis was irrigated a couple of times. A 19 Sami Dalton drain was then placed inside the pelvis, brought out to the right lower quadrant incision site, sutured to the skin with a 2-0 silk suture. The skin incisions were closed with keny. The abdomen was cleaned and dried and 4 x 4 and tape were applied. MTDD
[2020-08-26] MEDS: oxyCODONE 5MG TAB PO PRN ×2 (13:45→14:16)
[2020-08-26] MEDS: ALBUTEROL SULFATE 2.5 MG/0.5 ML INH NEB SOLN INH PRN ×2 (14:18→19:01)
[2020-08-26] MEDS: KCL 20MEQ IN D5/0.45NS 1000ML 1,000 ML IV SCH ×2 (14:57→21:56)
[2020-08-26] MEDS ORDERED: METF750T36 PO (16:41)
[2020-08-26] MEDS ORDERED: IPRA0.00 NEB (16:41)
[2020-08-26] MEDS ORDERED: FURO20TA2 PO (16:41)
[2020-08-26] MEDS ORDERED: AZEL0.1S NARES (16:41)
[2020-08-26] MEDS ORDERED: METR-265 PO (16:41)
[2020-08-26] MEDS ORDERED: PRED10TA2 PO (16:41)
[2020-08-26] MEDS ORDERED: ALEN70TA74 PO (16:41)
[2020-08-26] MEDS ORDERED: ALBU83IN NEB (16:43)
[2020-08-26] MEDS: KETOROLAC 30 MG/ML 1ML VIAL IV PRN (17:22)
[2020-08-26] MEDS: GABAPENTIN 300 MG CAP PO SCH ×2 (17:23→21:55)
[2020-08-26] MEDS: NORCO, ANEXSIA 5/325MG TABLET (HYDROcodone/ACETAMINOPHEN) PO PRN (18:53)
[2020-08-26] MEDS ORDERED: metFORMIN (GLUCOPHAGE) 1000 MG TABLET PO SCH (21:00)
[2020-08-26] MEDS: busPIRone 5 MG TAB PO SCH (21:55)
[2020-08-26] MEDS: SENOKOT S TAB PO SCH (21:55)
[2020-08-26] MEDS: HYDROXYCHLOROQUINE 200 MG TAB PO SCH (21:56)
[2020-08-27 02:00] VITALS: BP_SYST 141; BP_SYST 143; BP_DIAS 66; BP_DIAS 78
[2020-08-27] MEDS: KCL 20MEQ IN D5/0.45NS 1000ML 1,000 ML IV SCH (04:30)
[2020-08-27 06:00] VITALS: BP 165/85
[2020-08-27] MEDS: ALBUTEROL SULFATE 2.5 MG/0.5 ML INH NEB SOLN INH PRN ×3 (06:24→21:58)
[2020-08-27] MEDS: NORCO, ANEXSIA 5/325MG TABLET (HYDROcodone/ACETAMINOPHEN) PO PRN ×3 (07:16→21:57)
[2020-08-27 07:25] LABS: HEMOGLOBIN 14.7 g/dl (12.0-15.5); MEAN CORPUSCULAR HEMOGLOBIN 28.1 pg (27.0-33.0); MEAN CORPUSCULAR HGB CONC 31.3 g/dl (32.0-36.5); MEAN CORPUSCULAR VOLUME 89.9 fl (80.0-96.0); PLATELET COUNT, AUTOMATED 227 10^3/uL (150-450); RED BLOOD COUNT 5.23 10^6/uL (4.00-5.40); WHITE BLOOD COUNT 12.1 10^3/uL (4.0-10.0)
[2020-08-27 07:42] LABS: CALCIUM LEVEL 7.8 MG/DL (8.5-10.1); CREATININE FOR GFR 1.04 MG/DL (0.55-1.30); GLOMERULAR FILTRATION RATE 58.1 (>51); POTASSIUM SERUM 4.7 MEQ/L (3.5-5.1)
[2020-08-27] MEDS: HYDROXYCHLOROQUINE 200 MG TAB PO SCH ×2 (08:31→21:57)
[2020-08-27] MEDS: metFORMIN XR 750 MG TAB PO SCH ×2 (08:31→21:58)
[2020-08-27] MEDS: busPIRone 5 MG TAB PO SCH ×2 (08:31→21:57)
[2020-08-27] MEDS: SENOKOT S TAB PO SCH ×2 (08:31→21:00)
[2020-08-27] MEDS: ENOXAPARIN 40MG/0.4ML SYRINGE (J1650 PER 10MG) SC SCH (08:32)
[2020-08-27] MEDS: FUROSEMIDE 20 MG TAB PO SCH (08:32)
[2020-08-27] MEDS: PANTOPRAZOLE 40MG TAB (PROTONIX) PO SCH (08:32)
[2020-08-27] MEDS: GABAPENTIN 300 MG CAP PO SCH ×4 (08:32→21:57)
[2020-08-27] MEDS: predniSONE 10 MG TAB PO SCH (08:33)
--- NOTE | 2020-08-27 08:54 | IPNPDOC ---
Text Note Date of Service The patient was seen on 08/27/20. NOTE No changes overnight. She is tolerating clq diet without any problems, and she is able to ambulate to the bathroom on her own. Pain is controlled, and there is no nausea, emesis, fevers, or flatus. VSSAF NAD abd - soft, TTP appropriate, dressings c/d/i labs - below A) 55y/o female s/p RA sigmoidectomy for colovaginal fistula. P) flq diet amb in [place] IS d/c IVF monitor labs await return of bowel function David Lagos DO VS,Fishbone, I+O VS, Fishbone, I+O Laboratory Tests 08/27/20 07:07 Vital Signs Date Time Temp Pulse Resp B/P (MAP) Pulse Ox O2 Delivery O2 Flow Rate FiO2 08/27/20 08:06 16 Room Air 94.0 08/27/20 06:00 99.0 81 165/85 (111) 98 I&O- Last 24 Hours up to 6 AM 08/27/20 06:00 Intake Total 3155 ml Output Total 490 ml Balance 2665 ml CHELSI LAGOS DO Aug 27, 2020 08:54
[2020-08-27] MEDS: ERTAPENEM SODIUM 1 GM in NS MINI-BAG PLUS 50 ML IV SCH (09:51)
[2020-08-27 10:00] VITALS: BP 120/73
[2020-08-27 14:00] VITALS: BP 128/80
[2020-08-27 18:00] VITALS: BP 156/89
[2020-08-27 22:00] VITALS: BP 169/89
[2020-08-28] VITALS (7 sets, daily range): BP systolic 141–151; BP diastolic 81–92; O2SAT 96
[2020-08-28] MEDS: ALBUTEROL SULFATE 2.5 MG/0.5 ML INH NEB SOLN INH PRN ×3 (04:51→23:33)
[2020-08-28] MEDS: NORCO, ANEXSIA 5/325MG TABLET (HYDROcodone/ACETAMINOPHEN) PO PRN ×2 (04:52→13:13)
[2020-08-28 06:21] LABS: HEMATOCRIT 43.8 % (36.0-47.0); MEAN CORPUSCULAR HEMOGLOBIN 28.3 pg (27.0-33.0); MEAN CORPUSCULAR VOLUME 88.5 fl (80.0-96.0); PLATELET COUNT, AUTOMATED 218 10^3/uL (150-450); RED BLOOD COUNT 4.95 10^6/uL (4.00-5.40); WHITE BLOOD COUNT 12.5 10^3/uL (4.0-10.0)
[2020-08-28 06:45] LABS: BLOOD UREA NITROGEN 7 MG/DL (7-18); CALCIUM LEVEL 7.9 MG/DL (8.5-10.1); CARBON DIOXIDE LEVEL 30 MEQ/L (21-32); CHLORIDE LEVEL 104 MEQ/L (98-107); CREATININE FOR GFR 0.82 MG/DL (0.55-1.30); GLOMERULAR FILTRATION RATE > 60.0 (>51); GLUCOSE, FASTING 102 MG/DL (70-100); POTASSIUM SERUM 3.9 MEQ/L (3.5-5.1); SODIUM LEVEL 141 MEQ/L (136-145)
[2020-08-28] MEDS: SENOKOT S TAB PO SCH ×2 (09:00→22:17)
[2020-08-28] MEDS: metFORMIN XR 750 MG TAB PO SCH ×2 (09:19→22:16)
[2020-08-28] MEDS: PANTOPRAZOLE 40MG TAB (PROTONIX) PO SCH (09:20)
[2020-08-28] MEDS: busPIRone 5 MG TAB PO SCH ×2 (09:20→22:17)
[2020-08-28] MEDS: predniSONE 10 MG TAB PO SCH (09:20)
[2020-08-28] MEDS: FUROSEMIDE 20 MG TAB PO SCH (09:20)
[2020-08-28] MEDS: HYDROXYCHLOROQUINE 200 MG TAB PO SCH ×2 (09:20→22:17)
[2020-08-28] MEDS: GABAPENTIN 300 MG CAP PO SCH ×4 (09:20→22:16)
[2020-08-28] MEDS: ENOXAPARIN 40MG/0.4ML SYRINGE (J1650 PER 10MG) SC SCH (09:21)
[2020-08-28] MEDS: ERTAPENEM SODIUM 1 GM in NS MINI-BAG PLUS 50 ML IV SCH (09:21)
--- NOTE | 2020-08-28 09:53 | IPNPDOC ---
Text Note Date of Service The patient was seen on 08/28/20. NOTE No changes overnight. She is tolerating full liquid diet without any problems, and she is able to ambulate to the bathroom on her own. Pain is controlled, and there is no nausea, emesis, or fevers. She did walk in the [place] one time and is using the IS, but doesn't like to cough. She did have a couple small liquid BMs. VSSAF NAD abd - soft, TTP appropriate, incisions c/d/i, drain is serosanguinous labs - below A) 55y/o female s/p RA sigmoidectomy for colovaginal fistula. POD#2 P) reg diet amb in [place] more encourage IS and coughing monitor labs plan on d/c home tomorrow if afebrile, and wbc stays stable. David Lagos DO VS,Jorge, I+O VS, Jorge, I+O Laboratory Tests 08/28/20 06:01 Vital Signs Date Time Temp Pulse Resp B/P (MAP) Pulse Ox O2 Delivery O2 Flow Rate FiO2 08/28/20 06:00 97.8 88 18 141/87 (105) 91 Room Air 08/27/20 08:06 94.0 I&O- Last 24 Hours up to 6 AM 08/28/20 05:59 Intake Total 1465 ml Output Total 1445 ml Balance 20 ml CHELSI LAGOS DO Aug 28, 2020 09:53
[2020-08-28] MEDS: KETOROLAC 30 MG/ML 1ML VIAL IV PRN ×2 (17:00→23:08)
[2020-08-29 02:00] VITALS: BP 142/80
[2020-08-29 06:00] VITALS: BP 140/80
[2020-08-29 08:43] LABS: HEMATOCRIT 45.5 % (36.0-47.0); HEMOGLOBIN 14.7 g/dl (12.0-15.5); MEAN CORPUSCULAR HEMOGLOBIN 28.5 pg (27.0-33.0); MEAN CORPUSCULAR HGB CONC 32.3 g/dl (32.0-36.5); MEAN CORPUSCULAR VOLUME 88.3 fl (80.0-96.0); PLATELET COUNT, AUTOMATED 223 10^3/uL (150-450); RED BLOOD COUNT 5.15 10^6/uL (4.00-5.40); WHITE BLOOD COUNT 10.5 10^3/uL (4.0-10.0)
[2020-08-29] MEDS: ENOXAPARIN 40MG/0.4ML SYRINGE (J1650 PER 10MG) SC SCH (09:00)
[2020-08-29] MEDS ORDERED: HYDR-3715 PO (09:03)
[2020-08-29 09:14] LABS: BLOOD UREA NITROGEN 12 MG/DL (7-18); CALCIUM LEVEL 8.3 MG/DL (8.5-10.1); CARBON DIOXIDE LEVEL 32 MEQ/L (21-32); CHLORIDE LEVEL 102 MEQ/L (98-107); CREATININE FOR GFR 0.94 MG/DL (0.55-1.30); GLOMERULAR FILTRATION RATE > 60.0 (>51); GLUCOSE, FASTING 99 MG/DL (70-100); POTASSIUM SERUM 3.8 MEQ/L (3.5-5.1); SODIUM LEVEL 141 MEQ/L (136-145)
[2020-08-29] MEDS: busPIRone 5 MG TAB PO SCH (09:40)
[2020-08-29] MEDS: KETOROLAC 30 MG/ML 1ML VIAL IV PRN (09:40)
[2020-08-29] MEDS: SENOKOT S TAB PO SCH (09:41)
[2020-08-29] MEDS: GABAPENTIN 300 MG CAP PO SCH (09:41)
[2020-08-29] MEDS: predniSONE 10 MG TAB PO SCH (09:41)
[2020-08-29] MEDS: metFORMIN XR 750 MG TAB PO SCH (09:41)
[2020-08-29] MEDS: PANTOPRAZOLE 40MG TAB (PROTONIX) PO SCH (09:41)
[2020-08-29] MEDS: HYDROXYCHLOROQUINE 200 MG TAB PO SCH (09:42)
[2020-08-29] MEDS: FUROSEMIDE 20 MG TAB PO SCH (09:42)
[2020-08-29] MEDS: ERTAPENEM SODIUM 1 GM in NS MINI-BAG PLUS 50 ML IV SCH (09:44)
[2020-08-29 10:00] VITALS: BP 143/80
--- NOTE | 2020-09-03 11:14 | HPE ---
PRE-OP HISTORY AND PHYSICAL DATE OF ADMISSION: 08/26/2020 CHIEF COMPLAINT: Colovaginal fistula. HISTORY OF PRESENT ILLNESS: The patient is a 55-year-old female who presented with possible colovaginal fistula. After evaluation by her herb doctor colonoscopy was completed at first which did not show any obvious fistulas; however, she was having air and stool in her vagina as well as an opening that was identified on speculum exam by the herb doctor. Due to this and the possibility of a fistula also identified on CT scan she was sent for barium enema, but she was unable to tolerate the barium enema due to the pain. She presented to me for surgical evaluation and complained of multiple episodes of diverticulitis in the past. She has also had total abdominal hysterectomy; however, that was done in 2011. Most recent surgery was incisional hernia repair with a small bowel obstruction in November of this year. No other recent surgeries. She is still having persistent suprapubic pains; however, those are improved with antibiotics. PAST MEDICAL HISTORY: 1. Diabetes. 2. Pericarditis. 3. COPD. 4. Lupus. 5. Asthma. PAST SURGICAL HISTORY: 1. D&C. 2. Exploratory laparoscopy. 3. Tubal ligation. 4. section. 5. Ovarian cystectomy. 6. Partial hysterectomy in 2011. 7. Laparoscopic cholecystectomy followed by incisional hernia repair in November of this year. ALLERGIES: PENICILLIN. MEDICATIONS: Please see Med Rec. SOCIAL HISTORY: Smokes a pack a day. Denies drug or alcohol abuse. FAMILY HISTORY: Noncontributory. REVIEW OF SYSTEMS: Pertinent positives and negatives as stated in the HPI. PHYSICAL EXAMINATION: General: A&O times 3, in no acute distress. Vital signs: Blood pressure 150/90, heart rate 80s. HEENT: Pupils equal, round and reactive to light and accommodation. Heart: S1 and S2 regular rate and rhythm. Lungs: Clear to auscultation bilaterally. Abdomen: Soft, nondistended, slight tenderness suprapubic only, no guarding or rebound. No obvious ventral hernia. Extremities: No clubbing, cyanosis or edema. ASSESSMENT AND RECOMMENDATIONS: Patient is a 55-year-old female with a history of most likely colovaginal fistula secondary to history of diverticulitis and a hysterectomy. Recommendation at this time is to proceed with robotic assisted sigmoid colectomy with takedown of colovaginal fistula. Risks and benefits of procedure not limited to, but including bleeding, infection, hernia formation, damage to surrounding structures, anastomotic leak, need for further surgery were discussed in detail with the patient. Informed consent was obtained and procedure was planned electively.
--- NOTE | 2020-09-12 12:55 | DSES ---
DATE OF ADMISSION: 08/26/2020 DATE OF DISCHARGE: 08/29/2020 ADMISSION DIAGNOSIS: Colovaginal fistula. DISCHARGE DIAGNOSIS: Colovaginal fistula. HOSPITAL COURSE: Patient is a 55-year-old female who presented with a colovaginal fistula. She was brought in electively on the morning of the for an elective robotic sigmoid resection with takedown of the fistula. Postoperatively, she has done well. She was up ambulating in the room on postoperative day #0, tolerating a liquid diet. By postoperative day #1, she was ambulating around the room and urinating appropriately. The drain sticking out of her abdomen has serosangeneous drainage. She was tolerating a liquid diet without any nausea, vomiting or fevers, and her pain was adequately controlled. On postoperative day #2, she was passing gas, had a couple small loose liquidity bowel movements, tolerating full liquid diet and had been ambulating in the halls. No other concerns at this time. Her diet was advanced to regular and with a plan for discharge home the following day. On postoperative day #3, tolerating a regular diet and in the halls multiple laps. Labs were all normal. Pain was controlled. No fevers or chills. Drain was still serous. PLAN: The plan is to discharge home today. She will follow-up with me in the office in two weeks to get the keny removed. All of her questions were answered. She can shower starting today. No baths for five days. No lifting more than 20 pounds until after she sees me in the office. No other concerns at this time. PENNY
== END 2020-08-29 11:35 | disposition home or self-care (01) | DRG 331 ==
LOC: M OR 08-26 06:54 → M MS5PR 08-26 15:30
PROVIDERS: ADMIT Surgery; ATTEND Surgery
PROC: 0DBN4ZZ Excision of Sigmoid Colon, Percutaneous Endoscopic Approach (ICD-10-PCS; 2020-08-26)
PROC: 8E0W4CZ Robotic Assisted Procedure of Trunk Region, Percutaneous Endoscopic Approach (ICD-10-PCS; 2020-08-26)
PROC: 0D1N4ZP Bypass Sigmoid Colon to Rectum, Percutaneous Endoscopic Approach (ICD-10-PCS; principal; 2020-08-26 08:30)
DX: N82.3 Fistula of vagina to large intestine (principal); J45.909 Unspecified asthma, uncomplicated; E11.9 Type 2 diabetes mellitus without complications; F17.200 Nicotine dependence, unspecified, uncomplicated

== ENCOUNTER → 2020-08-21 | Outpatient (CLI) | payer MEDICARE ==
[~2020-08-21] MED LIST changes: +NEOM500T PO
== END ==
LOC: M LABSMTC 09:51
PROVIDERS: ATTEND Anesthesiology
DX: Z11.59 Encounter for screening for other viral diseases (principal)

== ENCOUNTER → 2020-12-06 | Outpatient (CLI) | payer MEDICARE ==
[~2020-12-06] MED LIST changes: +ALBU83IN NEB; +ALEN70TA82 PO; +AZEL0.1S NARES; +FURO20TA2 PO; +IPRA0.00 NEB; +METF750T36 PO; +METR-265 PO; +PRED10TA2 PO
--- NOTE | 2020-12-06 16:55 | REP ---
INDICATION: LUNG CANCER SCREENING. COMPARISON: Chest CT, low-dose lung screening, 06/12/2019. TECHNIQUE: The study is performed without IV contrast. Images are presented at lung windowing only. FINDINGS: There are no lung masses or nodules. There are no infiltrates or pleural effusions. There is chronic stable curvilinear scarring in the lower lobes bilaterally, unchanged. IMPRESSION: Category [address] low-dose lung screening CT of the chest. Probability of malignancy is less than 1%. Depending on risk factors consider annual follow-up low-dose lung screening chest CT. <Electronically signed by Antolin Rice > 12/06/20 [id number]
== END ==
LOC: M RAD 13:22
PROVIDERS: ATTEND Student in an Organized Health Care Education/Training Program
DX: Z12.2 Encounter for screening for malignant neoplasm of respiratory organs (principal); F17.210 Nicotine dependence, cigarettes, uncomplicated

== ENCOUNTER → 2021-07-09 | Outpatient (CLI) | payer MEDICARE ==
[~2021-07-09] MED LIST changes: +GABA-283 PO; -GABA-845 PO
== END ==
LOC: M LABSMTC 10:34
PROVIDERS: ATTEND Family Medicine
DX: Z20.822 Contact with and (suspected) exposure to COVID-19 (principal)
CPT/HCPCS: C9803; U0003

== ENCOUNTER → 2021-07-30 | Outpatient (REF) | payer MEDICARE | LOC: M SFHCPLAZ 12:42 | PROVIDERS: ATTEND Physician Assistant | DX: R05.9 Cough, unspecified (principal) | CPT/HCPCS: 87426; G0463; U0003 ==

== ENCOUNTER → 2021-12-08 | Outpatient (CLI) | payer MEDICARE | LOC: M RAD 12:59 | PROVIDERS: ATTEND Student in an Organized Health Care Education/Training Program | DX: Z12.2 Encounter for screening for malignant neoplasm of respiratory organs (principal); F17.210 Nicotine dependence, cigarettes, uncomplicated; R91.1 Solitary pulmonary nodule ==

== ENCOUNTER 2023-08-28 03:02 | Inpatient (IN) | payer MEDICARE ==
[~2023-08-28] VITALS: Ht 177.8 cm; Wt 96.6 kg
[~2023-08-28 03:02] MED LIST changes: +ALBU2.5V10 INH; +ALBU2.5V10 NEB; -ALBU83IN INH; -ALBU83IN NEB; -GABA-283 PO; +GABA-284 PO; -HYDR200T3 PO; +HYDR200T46 PO; +LEVO1TAB40 PO; -LEVO750T13 PO; +MECL-209 PO; -MECL1TAB31 PO
[2023-08-28 03:34] LABS: VENOUS BASE EXCESS 5.5 (-2.0-2.0); VENOUS HCO3 33.3 MMOL/L (23.0-27.0); VENOUS O2 SATURATION 96.5 % (60.0-80.0); VENOUS PARTIAL PRESSURE CO2 60.9 mmHg (38.0-50.0); VENOUS PARTIAL PRESSURE O2 83.1 mmHg (30.0-50.0); VENOUS PH 7.356 UNITS (7.330-7.430); VENOUS STANDARD HCO3 29.4 MMOL/L; VENOUS TOTAL CO2 35.2 MMOL/L (24.0-28.0)
[2023-08-28] MEDS ORDERED: IBUPROFEN 800 MG TAB PO ONE (03:35)
[2023-08-28 03:37] LABS: BASO # 0.1 10^3/uL (0.0-0.2); BASO % 0.3 % (0.0-1.0); EOS % 0.1 % (0.0-3.0); HEMATOCRIT 51.3 % (36.0-47.0); HEMOGLOBIN 16.2 g/dl (12.0-15.5); LYMPH # 2.5 10^3/uL (1.5-5.0); LYMPH % 12.9 % (24.0-44.0); MEAN CORPUSCULAR HEMOGLOBIN 28.2 pg (27.0-33.0); MEAN CORPUSCULAR HGB CONC 31.6 g/dl (32.0-36.5); MEAN CORPUSCULAR VOLUME 89.4 fl (80.0-96.0); MONO % 8.3 % (2.0-8.0); NEUTROPHILS # 15.4 10^3/uL (1.5-8.5); NEUTROPHILS % 77.9 % (36.0-66.0); PLATELET COUNT, AUTOMATED 262 10^3/uL (150-450); RED BLOOD COUNT 5.74 10^6/uL (4.00-5.40); WHITE BLOOD COUNT 19.8 10^3/uL (4.0-10.0)
[2023-08-28 03:50] LABS: ALBUMIN 3.2 G/DL (3.2-5.2); ALKALINE PHOSPHATASE 101 U/L (46-116); ALT/SGPT 15 U/L (7.0-40); AST/SGOT 11 U/L (<34); BILIRUBIN,DIRECT < 0.1 MG/DL (<0.4); BILIRUBIN,TOTAL 0.2 MG/DL (0.3-1.2); BLOOD UREA NITROGEN 16 MG/DL (9-23); CALCIUM LEVEL 8.7 MG/DL (8.3-10.6); CARBON DIOXIDE LEVEL 36 MMOL/L (20-31); CHLORIDE LEVEL 102 MMOL/L (98-107); CK-MB VALUE MASS < 1.0 NG/ML (<3.6); CREATININE FOR GFR 0.66 MG/DL (0.55-1.30); GLOMERULAR FILTRATION RATE > 60.0 (>45); GLUCOSE, FASTING 154 MG/DL (74-106); POTASSIUM SERUM 4.5 MMOL/L (3.5-5.1); SODIUM LEVEL 141 MMOL/L (136-145); TOTAL PROTEIN 6.1 G/DL (5.7-8.2)
[2023-08-28 03:52] LABS: CPK CREATINE PHOSPHOKINASE 64 U/L (34-145); MB/CK RELATIVE INDEX 1.56 (< OR =4)
[2023-08-28 04:02] LABS: MONO # 1.6 10^3/uL (0.0-0.8)
[2023-08-28] MEDS ORDERED: ISOVUE-370 76% 100ML VIAL As Ordered ONE (04:15)
[2023-08-28] MEDS: IPRATROPIUM 0.5MG/ALBUTEROL 2.5MG INH SOL UD 3ML (DUONEB) NEB SCH ×7 (04:43→20:47)
[2023-08-28 04:48] LABS: PROCALCITONIN 0.04 ng/ml
[2023-08-28 05:05] LABS: CK-MB VALUE MASS < 1.0 NG/ML (<3.6)
[2023-08-28 05:07] LABS: CPK CREATINE PHOSPHOKINASE 51 U/L (34-145); MB/CK RELATIVE INDEX 1.96 (< OR =4)
[2023-08-28] MEDS ORDERED: cefTRIAXone SOD 1 GM in D5W MINI-BAG PLUS 50 ML IV ONE (06:50)
[2023-08-28] MEDS ORDERED: GLUCAGON INJ 1MG VIAL SC PRN (07:10)
[2023-08-28] MEDS ORDERED: SENOKOT S TAB PO PRN (07:10)
[2023-08-28] MEDS ORDERED: DEXTROSE 50% 50ML SYRINGE IV PRN (07:10)
[2023-08-28] MEDS ORDERED: IPRATROPIUM 0.5MG/ALBUTEROL 2.5MG INH SOL UD 3ML (DUONEB) NEB PRN (07:10)
[2023-08-28] MEDS ORDERED: MOM 30ML SUSPENSION UDC PO PRN (07:10)
[2023-08-28] MEDS ORDERED: GLUCOSE 4GM CHEW TABLET PO PRN (07:10)
[2023-08-28 07:14] LABS: CK-MB VALUE MASS < 1.0 NG/ML (<3.6)
[2023-08-28 07:21] LABS: CPK CREATINE PHOSPHOKINASE 58 U/L (34-145); MB/CK RELATIVE INDEX 1.72 (< OR =4)
[2023-08-28] MEDS: METOPROLOL TART 25 MG TABLET PO SCH ×4 (07:29→23:27)
[2023-08-28] MEDS ORDERED: AZITHROMYCIN 250MG TABLET PO ONE (07:30)
[2023-08-28] MEDS: INSULIN LISPRO (NovoLOG) PER UNIT SC SCH ×4 (07:45→21:00)
[2023-08-28] MEDS ORDERED: MED REC IN PROGRESS XX SCH (08:45)
[2023-08-28] MEDS ORDERED: IPRATROPIUM 0.5MG/ALBUTEROL 2.5MG INH SOL UD 3ML (DUONEB) NEB ONE (09:50)
[2023-08-28] MEDS ORDERED: methylPREDNISolone 125MG 2ML VIAL IV ONE (09:50)
[2023-08-28] MEDS ORDERED: ALPRAZolam 0.5 MG TAB PO ONE (09:50)
[2023-08-28] MEDS ORDERED: KETOROLAC 30 MG/ML 1ML VIAL IV ONE (09:55)
[2023-08-28] MEDS ORDERED: PROMETHAZINE 25MG/ML 1ML VIAL IV ONE (09:55)
[2023-08-28] MEDS ORDERED: NS 1,000 ML IV SCH (09:55)
[2023-08-28] MEDS ORDERED: traMADol 50 MG TAB PO ONE (09:55)
[2023-08-28] MEDS: MONTELUKAST 10 MG TAB PO SCH (10:30)
[2023-08-28] MEDS ORDERED: HOME MED LIST COMPLETE! XX SCH (10:35)
[2023-08-28 11:24] VITALS: O2SAT 94
[2023-08-28] MEDS: guaiFENesin DM LIQ 10ML UD PO SCH ×3 (12:14→23:28)
[2023-08-28 13:59] VITALS: BP 144/78; TEMP 97.5; O2SAT 92
[2023-08-28 15:24] VITALS: O2SAT 93
[2023-08-28] MEDS: PROMETHAZINE 25MG/ML 1ML VIAL IV PRN (16:41)
[2023-08-28 19:50] VITALS: BP 145/86; TEMP 97.5; O2SAT 92
[2023-08-29] MEDS: GABAPENTIN 300 MG CAP PO SCH ×5 (00:26→21:08)
[2023-08-29 05:09] VITALS: BP 161/91; TEMP 97.9; O2SAT 94
[2023-08-29] MEDS: cefTRIAXone SOD 2 GM in D5W MINI-BAG PLUS 50 ML IV SCH (06:10)
[2023-08-29] MEDS: guaiFENesin DM LIQ 10ML UD PO SCH ×4 (06:10→21:08)
[2023-08-29] MEDS: METOPROLOL TART 25 MG TABLET PO SCH ×4 (06:10→21:08)
[2023-08-29 06:25] LABS: BASO % 0.2 % (0.0-1.0); EOS % 0.1 % (0.0-3.0); HEMOGLOBIN 14.9 g/dl (12.0-15.5); LYMPH # 2.5 10^3/uL (1.5-5.0); LYMPH % 17.1 % (24.0-44.0); MEAN CORPUSCULAR HEMOGLOBIN 28.8 pg (27.0-33.0); MEAN CORPUSCULAR VOLUME 92.7 fl (80.0-96.0); MONO # 1.2 10^3/uL (0.0-0.8); MONO % 7.8 % (2.0-8.0); NEUTROPHILS # 10.9 10^3/uL (1.5-8.5); NEUTROPHILS % 74.4 % (36.0-66.0); PLATELET COUNT, AUTOMATED 262 10^3/uL (150-450); RED BLOOD COUNT 5.18 10^6/uL (4.00-5.40); WHITE BLOOD COUNT 14.7 10^3/uL (4.0-10.0)
[2023-08-29 06:44] LABS: BLOOD UREA NITROGEN 18 MG/DL (9-23); CALCIUM LEVEL 8.5 MG/DL (8.3-10.6); CARBON DIOXIDE LEVEL 35 MMOL/L (20-31); CHLORIDE LEVEL 102 MMOL/L (98-107); CREATININE FOR GFR 0.68 MG/DL (0.55-1.30); GLOMERULAR FILTRATION RATE > 60.0 (>45); GLUCOSE, FASTING 148 MG/DL (74-106); POTASSIUM SERUM 4.5 MMOL/L (3.5-5.1); SODIUM LEVEL 141 MMOL/L (136-145)
[2023-08-29] MEDS ORDERED: NICOTINE POLACRILEX 2 MG GUM PO PRN (07:20)
[2023-08-29] MEDS ORDERED: NICOTINE 21MG/24HR 1 EA TRANSDERMAL TD PRN (07:20)
[2023-08-29 07:25] VITALS: O2SAT 95
[2023-08-29] MEDS ORDERED: ALPRAZolam 0.5 MG TAB PO ONE (07:25)
[2023-08-29] MEDS: IPRATROPIUM 0.5MG/ALBUTEROL 2.5MG INH SOL UD 3ML (DUONEB) NEB SCH ×6 (07:26→21:06)
[2023-08-29] MEDS ORDERED: IPRATROPIUM 0.5MG/ALBUTEROL 2.5MG INH SOL UD 3ML (DUONEB) NEB PRN (08:00)
[2023-08-29] MEDS: SODIUM CHLORIDE HYPERTONIC 3% 4ML NEB SOL INH SCH ×3 (08:00→21:06)
[2023-08-29] MEDS: INSULIN LISPRO (NovoLOG) PER UNIT SC SCH ×4 (08:15→21:00)
[2023-08-29] MEDS: ACETAMINOPHEN TAB 650MG DOSE (2X325MG) PO PRN ×2 (08:16→21:44)
[2023-08-29] MEDS: AZITHROMYCIN 250MG TABLET PO SCH (08:17)
[2023-08-29] MEDS: MONTELUKAST 10 MG TAB PO SCH (08:17)
[2023-08-29] MEDS: CETIRIZINE (ZyrTEC) 10 MG TAB PO SCH (08:17)
[2023-08-29] MEDS ORDERED: MONTELUKAST 10 MG TAB PO SCH (09:00)
[2023-08-29 11:46] VITALS: O2SAT 95
[2023-08-29] MEDS ORDERED: guaiFENesin DM LIQ 10ML UD PO PRN (12:00)
[2023-08-29 13:51] VITALS: BP 126/53; TEMP 97.9; O2SAT 95
[2023-08-29 19:48] VITALS: BP 151/73; TEMP 98.2; O2SAT 93
[2023-08-30] MEDS: SODIUM CHLORIDE HYPERTONIC 3% 4ML NEB SOL INH SCH ×7 (00:43→23:57)
[2023-08-30] MEDS: IPRATROPIUM 0.5MG/ALBUTEROL 2.5MG INH SOL UD 3ML (DUONEB) NEB SCH ×7 (00:43→23:57)
[2023-08-30] MEDS: ACETAMINOPHEN TAB 650MG DOSE (2X325MG) PO PRN (03:43)
[2023-08-30 04:31] VITALS: BP 154/80; TEMP 97.9; O2SAT 89
[2023-08-30] MEDS: METOPROLOL TART 25 MG TABLET PO SCH ×2 (05:36→12:10)
[2023-08-30 06:26] LABS: BASO # 0.1 10^3/uL (0.0-0.2); BASO % 0.7 % (0.0-1.0); EOS # 0.1 10^3/uL (0.0-0.5); EOS % 1.1 % (0.0-3.0); HEMATOCRIT 49.5 % (36.0-47.0); HEMOGLOBIN 15.2 g/dl (12.0-15.5); LYMPH # 2.7 10^3/uL (1.5-5.0); MEAN CORPUSCULAR HEMOGLOBIN 28.3 pg (27.0-33.0); MEAN CORPUSCULAR HGB CONC 30.7 g/dl (32.0-36.5); MEAN CORPUSCULAR VOLUME 92.2 fl (80.0-96.0); MONO # 0.8 10^3/uL (0.0-0.8); MONO % 7.2 % (2.0-8.0); NEUTROPHILS % 65.6 % (36.0-66.0); PLATELET COUNT, AUTOMATED 252 10^3/uL (150-450); RED BLOOD COUNT 5.37 10^6/uL (4.00-5.40); WHITE BLOOD COUNT 10.6 10^3/uL (4.0-10.0)
[2023-08-30 06:40] LABS: BLOOD UREA NITROGEN 17 MG/DL (9-23); CALCIUM LEVEL 8.6 MG/DL (8.3-10.6); CARBON DIOXIDE LEVEL 36 MMOL/L (20-31); CHLORIDE LEVEL 100 MMOL/L (98-107); CREATININE FOR GFR 0.78 MG/DL (0.55-1.30); GLOMERULAR FILTRATION RATE > 60.0 (>45); GLUCOSE, FASTING 155 MG/DL (74-106); POTASSIUM SERUM 4.2 MMOL/L (3.5-5.1); SODIUM LEVEL 142 MMOL/L (136-145)
[2023-08-30 06:42] LABS: INR 1.1; PARTIAL THROMBOPLASTIN TIME 25.4 SECONDS (24.8-34.2); PROTHROMBIN TIME 13.9 SECONDS (12.5-14.5)
[2023-08-30] MEDS: cefTRIAXone SOD 2 GM in D5W MINI-BAG PLUS 50 ML IV SCH (06:46)
[2023-08-30] MEDS ORDERED: IBUPROFEN 400MG TAB PO PRN (07:15)
[2023-08-30] MEDS ORDERED: SODIUM CHLORIDE NASAL 0.65% SPRAY BTL (OCEAN) PRN (07:15)
[2023-08-30] MEDS ORDERED: methylPREDNISolone 125MG 2ML VIAL IV ONE (07:30)
[2023-08-30] MEDS ORDERED: METOCLOPRAMIDE INJ 10MG/2ML VIAL IV ONE (07:35)
[2023-08-30] MEDS ORDERED: IPRATROPIUM 0.5MG/ALBUTEROL 2.5MG INH SOL UD 3ML (DUONEB) NEB ONE (07:40)
[2023-08-30] MEDS ORDERED: SODIUM CHLORIDE HYPERTONIC 3% 4ML NEB SOL INH SCH (08:00)
[2023-08-30 08:12] VITALS: BP 172/88; TEMP 97.8; O2SAT 93
[2023-08-30] MEDS: INSULIN LISPRO (NovoLOG) PER UNIT SC SCH ×4 (08:48→21:00)
[2023-08-30 08:54] VITALS: BP 172/88; TEMP 97.8; O2SAT 93
[2023-08-30] MEDS ORDERED: METOPROLOL TART 50 MG TAB PO SCH (09:00)
[2023-08-30] MEDS: GABAPENTIN 300 MG CAP PO SCH ×4 (09:38→21:21)
[2023-08-30] MEDS: guaiFENesin DM LIQ 10ML UD PO SCH ×4 (09:39→21:20)
[2023-08-30] MEDS: MONTELUKAST 10 MG TAB PO SCH (09:39)
[2023-08-30] MEDS: CETIRIZINE (ZyrTEC) 10 MG TAB PO SCH (09:41)
[2023-08-30] MEDS: AZITHROMYCIN 250MG TABLET PO SCH (09:42)
[2023-08-30] MEDS ORDERED: RIZATRIPTAN BENZOATE 10 MG TAB PO ONE (10:00)
[2023-08-30] MEDS: SODIUM CHLORIDE NASAL 0.65% SPRAY BTL (OCEAN) SCH ×3 (10:45→21:28)
[2023-08-30] MEDS: methylPREDNISolone 125MG 2ML VIAL IV SCH ×3 (10:45→21:20)
[2023-08-30] MEDS ORDERED: ALPRAZolam 0.5 MG TAB PO ONE ×2 (12:45→14:55)
[2023-08-30] MEDS ORDERED: METOPROLOL TART 25 MG TABLET PO ONE (13:00)
[2023-08-30] MEDS ORDERED: amLODIPine 5 MG TAB PO ONE (13:00)
[2023-08-30 14:00] VITALS: TEMP 98.1; O2SAT 93
[2023-08-30] MEDS: PROMETHAZINE 25MG/ML 1ML VIAL IV PRN (14:29)
[2023-08-30] MEDS ORDERED: cloNIDine 0.1MG TABLET PO ONE (14:55)
[2023-08-30] MEDS ORDERED: NITROGLYCERIN 2% OINT 1 GM *U/D* PKT TOP ONE (14:55)
[2023-08-30] MEDS: lisinopriL 5 MG TAB PO SCH ×2 (15:01→21:22)
[2023-08-30 19:39] VITALS: BP 140/75; TEMP 97.5; O2SAT 92
[2023-08-30 20:34] VITALS: O2SAT 93
[2023-08-30] MEDS: METOPROLOL TART 50 MG TAB PO SCH (21:25)
[2023-08-31] MEDS: SODIUM CHLORIDE HYPERTONIC 3% 4ML NEB SOL INH SCH ×4 (03:13→15:39)
[2023-08-31] MEDS: IPRATROPIUM 0.5MG/ALBUTEROL 2.5MG INH SOL UD 3ML (DUONEB) NEB SCH ×4 (03:13→15:39)
[2023-08-31] MEDS: methylPREDNISolone 125MG 2ML VIAL IV SCH ×2 (03:15→08:02)
[2023-08-31 04:31] VITALS: BP 161/81; TEMP 97.7; O2SAT 89
[2023-08-31] MEDS: cefTRIAXone SOD 2 GM in D5W MINI-BAG PLUS 50 ML IV SCH (06:09)
[2023-08-31 06:18] LABS: BASO % 0.2 % (0.0-1.0); HEMATOCRIT 47.2 % (36.0-47.0); HEMOGLOBIN 15.1 g/dl (12.0-15.5); LYMPH # 0.7 10^3/uL (1.5-5.0); LYMPH % 6.1 % (24.0-44.0); MEAN CORPUSCULAR HEMOGLOBIN 28.3 pg (27.0-33.0); MEAN CORPUSCULAR VOLUME 88.6 fl (80.0-96.0); MONO # 0.2 10^3/uL (0.0-0.8); MONO % 1.4 % (2.0-8.0); NEUTROPHILS % 91.6 % (36.0-66.0); PLATELET COUNT, AUTOMATED 247 10^3/uL (150-450); RED BLOOD COUNT 5.33 10^6/uL (4.00-5.40)
[2023-08-31 06:51] LABS: BLOOD UREA NITROGEN 18 MG/DL (9-23); CALCIUM LEVEL 8.8 MG/DL (8.3-10.6); CARBON DIOXIDE LEVEL 35 MMOL/L (20-31); CHLORIDE LEVEL 99 MMOL/L (98-107); CREATININE FOR GFR 0.64 MG/DL (0.55-1.30); GLOMERULAR FILTRATION RATE > 60.0 (>45); GLUCOSE, FASTING 294 MG/DL (74-106); POTASSIUM SERUM 4.5 MMOL/L (3.5-5.1); SODIUM LEVEL 139 MMOL/L (136-145)
[2023-08-31] MEDS: CETIRIZINE (ZyrTEC) 10 MG TAB PO SCH (08:02)
[2023-08-31] MEDS: guaiFENesin DM LIQ 10ML UD PO SCH ×2 (08:02→13:00)
[2023-08-31] MEDS: INSULIN LISPRO (NovoLOG) PER UNIT SC SCH ×2 (08:03→12:05)
[2023-08-31] MEDS: AZITHROMYCIN 250MG TABLET PO SCH (08:04)
[2023-08-31] MEDS: GABAPENTIN 300 MG CAP PO SCH ×2 (08:04→12:05)
[2023-08-31 08:05] VITALS: BP 141/71
[2023-08-31] MEDS: lisinopriL 5 MG TAB PO SCH (08:05)
[2023-08-31] MEDS: METOPROLOL TART 50 MG TAB PO SCH (08:05)
[2023-08-31] MEDS: MONTELUKAST 10 MG TAB PO SCH (08:05)
[2023-08-31] MEDS: SODIUM CHLORIDE NASAL 0.65% SPRAY BTL (OCEAN) SCH (08:06)
[2023-08-31] MEDS ORDERED: ENOXAPARIN 40MG/0.4ML SYRINGE (J1650 PER 10MG) SC SCH (09:00)
[2023-08-31 11:52] VITALS: O2SAT 78
[2023-08-31 13:51] VITALS: O2SAT 88
[2023-08-31 14:00] VITALS: BP 163/81; TEMP 98.1; O2SAT 88
[2023-08-31] MEDS ORDERED: BUDE10.2 IH (14:54)
[2023-08-31] MEDS ORDERED: LISI20TA33 PO (14:54)
[2023-08-31] MEDS ORDERED: LEVO1TAB39 PO (14:54)
[2023-08-31] MEDS ORDERED: PRED20TA PO ×2 (14:54→15:13)
[2023-08-31] MEDS ORDERED: ALBU8.5H INH (15:13)
[2023-08-31] MEDS ORDERED: IPRA0.00 INH (15:13)
[2023-09-01] MEDS ORDERED: predniSONE 20 MG TAB PO SCH (09:00)
[2023-09-01 17:08] LABS: BODY FLUID CULTURE Not indicated. (.); LEGIONELLA ANTIGEN URINE Negative (Negative); ORGANISM ID Not indicated. (.); SPECIMEN SOURCE Urine (.); URINE STREP PNEUMONIAE ANTIGEN Negative (Negative)
== END 2023-08-31 16:45 | disposition home health service (06) | DRG 193 ==
LOC: EDBD 03:02 → M ED 03:02 → M ED INP 07:05 → M MS5PR 09:50
PROVIDERS: ADMIT General Practice; ATTEND Internal Medicine
DX: J18.9 Pneumonia, unspecified organism (principal); J96.01 Acute respiratory failure with hypoxia; J44.0 Chronic obstructive pulmonary disease with (acute) lower respiratory infection; J45.901 Unspecified asthma with (acute) exacerbation; J44.1 Chronic obstructive pulmonary disease with (acute) exacerbation; F17.200 Nicotine dependence, unspecified, uncomplicated; G47.33 Obstructive sleep apnea (adult) (pediatric); R91.1 Solitary pulmonary nodule; Z88.0 Allergy status to penicillin; Z79.899 Other long term (current) drug therapy; Z20.1 Contact with and (suspected) exposure to tuberculosis; M54.50 Low back pain, unspecified; E11.9 Type 2 diabetes mellitus without complications; F41.9 Anxiety disorder, unspecified; F32.A Depression, unspecified; E66.9 Obesity, unspecified; Z68.30 Body mass index [BMI] 30.0-30.9, adult

== ENCOUNTER → 2023-09-04 | Outpatient (CLI) | payer MEDICARE ==
[~2023-09-04] MED LIST changes: +ALBU8.5H INH; +BUDE10.2 IH; +IPRA0.00 INH; +LEVO1TAB39 PO; +LISI20TA33 PO
[2023-09-04 11:41] LABS: BASO % 0.2 % (0.0-1.0); EOS # 0.1 10^3/uL (0.0-0.5); EOS % 0.7 % (0.0-3.0); HEMATOCRIT 47.5 % (36.0-47.0); HEMOGLOBIN 15.3 g/dl (12.0-15.5); LYMPH # 1.6 10^3/uL (1.5-5.0); MEAN CORPUSCULAR HEMOGLOBIN 28.5 pg (27.0-33.0); MEAN CORPUSCULAR HGB CONC 32.2 g/dl (32.0-36.5); MEAN CORPUSCULAR VOLUME 88.6 fl (80.0-96.0); MONO # 0.5 10^3/uL (0.0-0.8); MONO % 3.8 % (2.0-8.0); NEUTROPHILS # 11.9 10^3/uL (1.5-8.5); NEUTROPHILS % 83.5 % (36.0-66.0); PLATELET COUNT, AUTOMATED 224 10^3/uL (150-450); RED BLOOD COUNT 5.36 10^6/uL (4.00-5.40); WHITE BLOOD COUNT 14.2 10^3/uL (4.0-10.0)
[2023-09-04 11:46] LABS: ERYTHROCYTE SEDIMENTATION RATE 8 mm/hr (0-30)
[2023-09-04 12:08] LABS: ALKALINE PHOSPHATASE 66 U/L (46-116); ALT/SGPT 19 U/L (7.0-40); AST/SGOT 9 U/L (<34); BILIRUBIN,TOTAL 0.2 MG/DL (0.3-1.2); BLOOD UREA NITROGEN 19 MG/DL (9-23); CARBON DIOXIDE LEVEL 32 MMOL/L (20-31); CHLORIDE LEVEL 102 MMOL/L (98-107); COMPLEMENT C3 104.1 MG/DL (90.0-170.0); CREATININE FOR GFR 0.67 MG/DL (0.55-1.30); GLOMERULAR FILTRATION RATE > 60.0 (>45); GLUCOSE, FASTING 197 MG/DL (74-106); POTASSIUM SERUM 4.4 MMOL/L (3.5-5.1); SODIUM LEVEL 140 MMOL/L (136-145); TOTAL PROTEIN 5.4 G/DL (5.7-8.2)
== END ==
LOC: M LAB 10:19
PROVIDERS: ATTEND Internal Medicine Rheumatology
DX: M32.9 Systemic lupus erythematosus, unspecified (principal)

== ENCOUNTER → 2023-11-01 | Outpatient (CLI) | payer MEDICARE | LOC: M PLAIMG 10:19 | PROVIDERS: ATTEND Student in an Organized Health Care Education/Training Program | DX: R91.1 Solitary pulmonary nodule (principal); R59.0 Localized enlarged lymph nodes; R91.8 Other nonspecific abnormal finding of lung field ==

== ENCOUNTER → 2023-12-06 | Outpatient (CLI) | payer MEDICARE | LOC: M PLARAD 12:29 | PROVIDERS: ATTEND Internal Medicine Pulmonary Disease | DX: C77.0 Secondary and unspecified malignant neoplasm of lymph nodes of head, face and neck (principal); R91.8 Other nonspecific abnormal finding of lung field | CPT/HCPCS: 78815; A9552 ==

== ENCOUNTER → 2024-02-28 | Outpatient (CLI) | payer MEDICARE | LOC: M RAD 16:27 | PROVIDERS: ATTEND Internal Medicine Pulmonary Disease | DX: R91.1 Solitary pulmonary nodule (principal) ==

== ENCOUNTER → 2024-03-10 | Outpatient (REF) | payer MEDICARE | LOC: M LAB REF 16:55 | PROVIDERS: ATTEND Internal Medicine Pulmonary Disease | DX: J44.9 Chronic obstructive pulmonary disease, unspecified (principal) ==

== ENCOUNTER → 2024-04-12 | Day surgery (SDC) | payer MEDICARE ==
[~2024-04-12] VITALS: Ht 177.8 cm; Wt 41.2 kg
[~2024-04-12] MED LIST changes: +DIAZ5TAB PO; +LIDOCAINE 2% 100MG/5ML SDV (FOR ANES.) As Ordered ONE; +METOPROLOL 5 MG/5 ML VIAL As Ordered ONE; +MIDAZOLAM INJ 2MG/2ML VIAL As Ordered ONE; +ONDANSETRON 4MG 2ML VIAL As Ordered ONE; +ONDANSETRON 4MG 2ML VIAL IV PRN; +ROCURONIUM BROMIDE 50MG/5ML VIAL As Ordered ONE; +SUGAMMADEX SODIUM 500 MG/5 ML VIAL (BRIDION) As Ordered ONE; +SYMB16INH INH; +ePHEDrine SULFATE 25 MG/5 ML(5MG/ML) SYRINGE As Ordered ONE; +fentaNYL 100 MCG/2 ML INJECTION As Ordered ONE; +fentaNYL 100 MCG/2 ML INJECTION IV PRN; +oxyCODONE 5MG TAB PO PRN; +propofoL 200 MG/20 ML VIAL As Ordered ONE
[2024-04-12] MEDS: LR 1,000 ML IV SCH (09:45)
[2024-04-12] MEDS: LIDOCAINE PRES-FREE 2% 10ML AMP INH ONE (10:40)
[2024-04-12] MEDS: ALBUTEROL SULFATE 2.5MG/0.5ML INH NEB SOLN INH ONE (10:40)
[2024-04-12] MEDS: CETACAINE SPRAY 5GM As Ordered ONE (12:19)
[2024-04-12] MEDS: EPINEPHrine 1MG/10ML SYRINGE 1.5IN As Ordered ONE (12:20)
[2024-04-12] MEDS: THROMBIN 5,000 UNITS VIAL As Ordered ONE (12:20)
[2024-04-12] MEDS: ALBUTEROL SULFATE 2.5MG/0.5ML INH NEB SOLN NEB ONE (12:48)
[2024-04-12 13:30] VITALS: TEMP 97.8
[2024-04-12 14:00] VITALS: BP 152/73; O2SAT 93
== END | disposition home or self-care (01) ==
LOC: M SDC 08:38
PROVIDERS: ATTEND Internal Medicine Pulmonary Disease
DX: J84.10 Pulmonary fibrosis, unspecified (principal); E11.9 Type 2 diabetes mellitus without complications; M10.9 Gout, unspecified; K57.92 Diverticulitis of intestine, part unspecified, without perforation or abscess without bleeding; M79.7 Fibromyalgia; F41.9 Anxiety disorder, unspecified; F32.A Depression, unspecified; J44.9 Chronic obstructive pulmonary disease, unspecified; Z79.84 Long term (current) use of oral hypoglycemic drugs; Z79.899 Other long term (current) drug therapy; Z79.51 Long term (current) use of inhaled steroids; Z88.0 Allergy status to penicillin; F17.218 Nicotine dependence, cigarettes, with other nicotine-induced disorders; I10 Essential (primary) hypertension
CPT/HCPCS: 31627; 31628; 31654; S2900

== ENCOUNTER → 2024-04-13 | Outpatient (CLI) | payer MEDICARE ==
[~2024-04-13] MED LIST changes: -LIDOCAINE 2% 100MG/5ML SDV (FOR ANES.) As Ordered ONE; -METOPROLOL 5 MG/5 ML VIAL As Ordered ONE; -MIDAZOLAM INJ 2MG/2ML VIAL As Ordered ONE; -ONDANSETRON 4MG 2ML VIAL As Ordered ONE; -ONDANSETRON 4MG 2ML VIAL IV PRN; -ROCURONIUM BROMIDE 50MG/5ML VIAL As Ordered ONE; -SUGAMMADEX SODIUM 500 MG/5 ML VIAL (BRIDION) As Ordered ONE; -ePHEDrine SULFATE 25 MG/5 ML(5MG/ML) SYRINGE As Ordered ONE; -fentaNYL 100 MCG/2 ML INJECTION As Ordered ONE; -fentaNYL 100 MCG/2 ML INJECTION IV PRN; -oxyCODONE 5MG TAB PO PRN; -propofoL 200 MG/20 ML VIAL As Ordered ONE
== END ==
LOC: M RAD 17:39
PROVIDERS: ATTEND Internal Medicine Pulmonary Disease
DX: R91.8 Other nonspecific abnormal finding of lung field (principal); J93.9 Pneumothorax, unspecified

== ENCOUNTER → 2024-05-24 | Outpatient (CLI) | payer MEDICARE ==
[~2024-05-24] MED LIST changes: +GABA-1490 PO; -GABA600T4 PO
== END ==
LOC: M ONCR 13:11
PROVIDERS: ATTEND General Practice
DX: R91.1 Solitary pulmonary nodule (principal); J44.9 Chronic obstructive pulmonary disease, unspecified; F17.218 Nicotine dependence, cigarettes, with other nicotine-induced disorders; Z88.0 Allergy status to penicillin; Z88.1 Allergy status to other antibiotic agents; Z79.51 Long term (current) use of inhaled steroids; Z79.84 Long term (current) use of oral hypoglycemic drugs; Z80.1 Family history of malignant neoplasm of trachea, bronchus and lung; Z79.899 Other long term (current) drug therapy; Z90.710 Acquired absence of both cervix and uterus; Z90.49 Acquired absence of other specified parts of digestive tract

== ENCOUNTER 2024-07-10 10:00 | Outpatient (RCR) | payer MEDICARE ==
[~2024-07-10 10:00] MED LIST changes: +AZIT-12 PO; +PRED50TA PO
== END 2024-07-13 ==
LOC: M ONCR 10:00
PROVIDERS: ATTEND General Practice
DX: Z51.0 Encounter for antineoplastic radiation therapy (principal); C34.32 Malignant neoplasm of lower lobe, left bronchus or lung

== ENCOUNTER → 2024-10-03 | Outpatient (CLI) | payer MEDICARE ==
[~2024-10-03] MED LIST changes: +ADVA1AER9 INH; -AZEL0.1S NARES; +AZEL137S8 NARES; +ISOVUE-370 76% 100ML VIAL As Ordered ONE
[2024-10-03 12:14] LABS: ALBUMIN 3.6 G/DL (3.2-5.2); ALKALINE PHOSPHATASE 64 U/L (35-104); ALT/SGPT < 9 U/L (7.0-40); AST/SGOT < 8 U/L (<34); BILIRUBIN,TOTAL 0.6 MG/DL (0.3-1.2); BLOOD UREA NITROGEN 15 MG/DL (9-23); CALCIUM LEVEL 8.3 MG/DL (8.3-10.6); CARBON DIOXIDE LEVEL 31 MMOL/L (20-31); CHLORIDE LEVEL 109 MMOL/L (98-107); CREATININE FOR GFR 0.71 MG/DL (0.55-1.30); GLOMERULAR FILTRATION RATE > 60.0 (>45); GLUCOSE, FASTING 124 MG/DL (74-106); SODIUM LEVEL 143 MMOL/L (136-145); TOTAL PROTEIN 6.5 G/DL (5.7-8.2)
== END ==
LOC: M RAD 10:40
PROVIDERS: ATTEND General Practice
DX: C34.32 Malignant neoplasm of lower lobe, left bronchus or lung (principal); E04.2 Nontoxic multinodular goiter
CPT/HCPCS: 71260; 76536; 80053; Q9967

== ENCOUNTER → 2024-10-10 | Outpatient (CLI) | payer MEDICAID, MEDICARE ==
[~2024-10-10] MED LIST changes: -ISOVUE-370 76% 100ML VIAL As Ordered ONE; +MOME13HF8 INH
== END ==
LOC: M ONCR 10:50
PROVIDERS: ATTEND General Practice
DX: C34.32 Malignant neoplasm of lower lobe, left bronchus or lung (principal); D49.6 Neoplasm of unspecified behavior of brain; R91.1 Solitary pulmonary nodule; R05.9 Cough, unspecified

== ENCOUNTER 2024-12-09 10:29 | Inpatient (IN) | payer MEDICARE ==
[~2024-12-09] VITALS: Ht 175.3 cm; Wt 92.5 kg
[2024-12-09 11:43] LABS: ABG BASE EXCESS 3.6 (-2.0-2.0); ABG HCO3 32.5 MMOL/L (22.0-26.0); ABG O2 SATURATION 96.2 % (95.0-99.0); ABG PARTIAL PRESSURE O2 83.6 mmHg (75.0-100.0); ABG STANDARD HCO3 27.6 MMOL/L. (22.0-26.0); ABG TOTAL CO2 34.6 MMOL/L (23.0-31.0); ABG pH (ARTERIAL) 7.312 UNITS (7.350-7.450)
[2024-12-09 11:44] LABS: ABG PARTIAL PRESSURE CO2 65.8 mmHg (35.0-45.0)
[2024-12-09] MEDS: ALBUTEROL SULFATE 2.5MG/0.5ML INH NEB SOLN INH ONE (11:44)
[2024-12-09] MEDS: IPRATROPIUM 0.5MG/ALBUTEROL 2.5MG INH SOL UD 3ML (DUONEB) NEB ONE (11:44)
[2024-12-09 11:45] LABS: BASO % 0.6 % (0.0-1.0); EOS % 0.3 % (0.0-3.0); LYMPH # 0.7 10^3/uL (1.5-5.0); LYMPH % 10.3 % (24.0-44.0); MEAN CORPUSCULAR HEMOGLOBIN 29.4 pg (27.0-33.0); MONO # 0.4 10^3/uL (0.0-0.8); MONO % 6.1 % (2.0-8.0); NEUTROPHILS # 5.8 10^3/uL (1.5-8.5); NEUTROPHILS % 82.4 % (36.0-66.0); PLATELET COUNT, AUTOMATED 179 10^3/uL (150-450); WHITE BLOOD COUNT 7.1 10^3/uL (4.0-10.0)
[2024-12-09 11:47] LABS: HEMATOCRIT 53.3 % (36.0-47.0); HEMOGLOBIN 17.6 g/dl (12.0-15.5); RED BLOOD COUNT 5.99 10^6/uL (4.00-5.40)
[2024-12-09 12:06] LABS: ALBUMIN 3.7 G/DL (3.2-5.2); ALKALINE PHOSPHATASE 76 U/L (35-104); ALT/SGPT 15 U/L (7.0-40); AST/SGOT 15 U/L (<34); BILIRUBIN,DIRECT 0.1 MG/DL (<0.4); BILIRUBIN,TOTAL 0.4 MG/DL (0.3-1.2); BLOOD UREA NITROGEN 13 MG/DL (9-23); CALCIUM LEVEL 8.6 MG/DL (8.3-10.6); CARBON DIOXIDE LEVEL 34 MMOL/L (20-31); CHLORIDE LEVEL 102 MMOL/L (98-107); CREATININE FOR GFR 0.67 MG/DL (0.55-1.30); GLOMERULAR FILTRATION RATE > 60.0 (>45); GLUCOSE, FASTING 136 MG/DL (74-106); POTASSIUM SERUM 4.5 MMOL/L (3.5-5.1); SODIUM LEVEL 140 MMOL/L (136-145); TOTAL PROTEIN 6.6 G/DL (5.7-8.2)
[2024-12-09 12:07] LABS: CK-MB VALUE MASS 1.1 NG/ML (<3.6)
[2024-12-09 12:09] LABS: CPK CREATINE PHOSPHOKINASE 91 U/L (34-145)
[2024-12-09 12:11] LABS: THYROXINE (T4) 7.8 UG/DL (4.5-10.9)
[2024-12-09] MEDS ORDERED: ISOVUE-370 76% 100ML VIAL As Ordered ONE (13:50)
[2024-12-09] MEDS ORDERED: MOM 30ML SUSPENSION UDC PO PRN (15:45)
[2024-12-09] MEDS ORDERED: MAALOX 30 ML SUSP *UDC PO PRN (15:45)
[2024-12-09] MEDS ORDERED: DEXTROSE 50% 50ML SYRINGE IV PRN (16:00)
[2024-12-09] MEDS ORDERED: GLUCOSE 4 GM CHEW PO PRN (16:00)
[2024-12-09] MEDS ORDERED: GLUCAGON INJ 1MG VIAL SC PRN (16:00)
[2024-12-09] MEDS ORDERED: HOME MED LIST COMPLETE! XX SCH (16:15)
[2024-12-09] MEDS: IPRATROPIUM 0.5MG/ALBUTEROL 2.5MG INH SOL UD 3ML (DUONEB) NEB SCH (16:27)
[2024-12-09 16:36] LABS: ABG BASE EXCESS 2.9 (-2.0-2.0); ABG HCO3 32.2 MMOL/L (22.0-26.0); ABG O2 SATURATION 95.7 % (95.0-99.0); ABG PARTIAL PRESSURE O2 76.5 mmHg (75.0-100.0); ABG TOTAL CO2 34.2 MMOL/L (23.0-31.0)
[2024-12-09 16:39] LABS: ABG PARTIAL PRESSURE CO2 66.9 mmHg (35.0-45.0)
[2024-12-09] MEDS ORDERED: traZODone 25MG PER 1/2 TABLET PO PRN (17:25)
[2024-12-09] MEDS: INSULIN LISPRO (NovoLOG) PER UNIT SC SCH ×2 (17:30→21:00)
[2024-12-09] MEDS ORDERED: methylPREDNISolone 40MG 1ML VIAL IV SCH (18:00)
[2024-12-09] MEDS: NS (Normal Saline) 0.9% 1,000 ML IV ONE (18:15)
[2024-12-09] MEDS: GABAPENTIN 300 MG CAP PO SCH (18:15)
[2024-12-09] MEDS: methylPREDNISolone 40MG 1ML VIAL IV SCH (18:16)
[2024-12-09] MEDS: BUDESONIDE 0.5 MG/2 ML INHALATION SUSPENSION NEB SCH (19:54)
[2024-12-09] MEDS: LEVALBUTEROL 1.25MG 0.5ML CONCENTRATE NEB INH PRN (19:55)
[2024-12-09] MEDS: FORMOTEROL FUMARATE 20 MCG/2 ML INHALATION SOLUTION (PERFOROMIST) INH SCH (19:58)
[2024-12-09] MEDS: DOCUSATE SODIUM 100MG CAPSULE PO SCH (21:32)
[2024-12-09] MEDS: guaiFENesin ER TABLET 600 MG TAB PO SCH (21:32)
[2024-12-09] MEDS: PANTOPRAZOLE 40MG TAB (PROTONIX) PO SCH (21:33)
[2024-12-09] MEDS: NICOTINE 21MG/24HR 1 EA TRANSDERMAL TD SCH (21:33)
[2024-12-09] MEDS: DOXYCYCLINE HYCLATE 100MG TABLET PO SCH (21:33)
[2024-12-10 06:22] LABS: BASO % 0.2 % (0.0-1.0); HEMATOCRIT 50.7 % (36.0-47.0); HEMOGLOBIN 16.2 g/dl (12.0-15.5); LYMPH # 0.7 10^3/uL (1.5-5.0); LYMPH % 13.7 % (24.0-44.0); MEAN CORPUSCULAR HEMOGLOBIN 29.5 pg (27.0-33.0); MEAN CORPUSCULAR VOLUME 92.2 fl (80.0-96.0); MONO # 0.2 10^3/uL (0.0-0.8); MONO % 3.9 % (2.0-8.0); NEUTROPHILS # 3.9 10^3/uL (1.5-8.5); NEUTROPHILS % 81.8 % (36.0-66.0); PLATELET COUNT, AUTOMATED 164 10^3/uL (150-450); WHITE BLOOD COUNT 4.8 10^3/uL (4.0-10.0)
[2024-12-10 06:23] LABS: VENOUS BASE EXCESS 4.2 (-2.0-2.0); VENOUS HCO3 33.4 MMOL/L (23.0-27.0); VENOUS PARTIAL PRESSURE CO2 69.3 mmHg (38.0-50.0); VENOUS PARTIAL PRESSURE O2 192.7 mmHg (30.0-50.0); VENOUS PH 7.301 UNITS (7.330-7.430); VENOUS STANDARD HCO3 28.2 MMOL/L; VENOUS TOTAL CO2 35.5 MMOL/L (24.0-28.0)
[2024-12-10 06:56] LABS: BLOOD UREA NITROGEN 18 MG/DL (9-23); CALCIUM LEVEL 8.1 MG/DL (8.3-10.6); CARBON DIOXIDE LEVEL 35 MMOL/L (20-31); CHLORIDE LEVEL 103 MMOL/L (98-107); GLOMERULAR FILTRATION RATE > 60.0 (>45); GLUCOSE, FASTING 235 MG/DL (74-106); SODIUM LEVEL 142 MMOL/L (136-145)
[2024-12-10] MEDS: ENOXAPARIN 40MG/0.4ML SYRINGE (J1650 PER 10MG) SC SCH (08:23)
[2024-12-11] VITALS (13 sets, daily range): BP systolic 147–178; BP diastolic 68–100; TEMP 97.1–98.4; O2SAT 90–94
[2024-12-11] MEDS: KETOROLAC 30 MG/ML 1ML VIAL IV PRN (00:38)
[2024-12-11] MEDS ORDERED: DEXTROMETHORPHAN 60MG/10ML SUSP 90ML BTL(DELSYM) PO PRN (03:00)
[2024-12-11] MEDS: KETOROLAC 30 MG/ML 1ML VIAL IV ONE (03:27)
[2024-12-11] MEDS: ACETAMINOPHEN *IV* 1,000 MG in IV 1 EA IV ONE (03:28)
[2024-12-11] MEDS: LIDOCAINE 5% (LIDODERM) PATCH TD SCH (03:28)
[2024-12-11 05:51] LABS: BASO % 0.1 % (0.0-1.0); HEMATOCRIT 48.1 % (36.0-47.0); HEMOGLOBIN 15.3 g/dl (12.0-15.5); LYMPH # 0.9 10^3/uL (1.5-5.0); MEAN CORPUSCULAR HEMOGLOBIN 29.1 pg (27.0-33.0); MEAN CORPUSCULAR HGB CONC 31.8 g/dl (32.0-36.5); MEAN CORPUSCULAR VOLUME 91.6 fl (80.0-96.0); MONO # 0.3 10^3/uL (0.0-0.8); MONO % 3.9 % (2.0-8.0); NEUTROPHILS % 84.6 % (36.0-66.0); PLATELET COUNT, AUTOMATED 174 10^3/uL (150-450); RED BLOOD COUNT 5.25 10^6/uL (4.00-5.40); WHITE BLOOD COUNT 8.3 10^3/uL (4.0-10.0)
[2024-12-11 06:12] LABS: BLOOD UREA NITROGEN 22 MG/DL (9-23); CALCIUM LEVEL 8.8 MG/DL (8.3-10.6); CARBON DIOXIDE LEVEL 34 MMOL/L (20-31); CHLORIDE LEVEL 102 MMOL/L (98-107); GLOMERULAR FILTRATION RATE > 60.0 (>45); GLUCOSE, FASTING 205 MG/DL (74-106); POTASSIUM SERUM 5.5 MMOL/L (3.5-5.1); SODIUM LEVEL 138 MMOL/L (136-145)
[2024-12-11] MEDS: GABAPENTIN 300 MG CAP PO SCH (08:19)
[2024-12-11] MEDS: ACETAMINOPHEN 325 MG TAB PO PRN (10:46)
[2024-12-11] MEDS ORDERED: MUCI600T31 PO (11:42)
[2024-12-11] MEDS ORDERED: DOXY100T PO (11:42)
[2024-12-11] MEDS ORDERED: PRED10TA2 PO (11:42)
[2024-12-11] MEDS ORDERED: PANT40TA29 PO (11:42)
[2024-12-11] MEDS ORDERED: SYMB16INH INH (11:44)
[2024-12-11] MEDS ORDERED: ALBU2.5V10 INH (15:15)
[2024-12-11] MEDS ORDERED: PRED20TA PO (15:15)
[2024-12-11] MEDS: cloNIDine 0.1MG TABLET PO ONE (17:42)
[2024-12-11] MEDS ORDERED: methylPREDNISolone 40MG 1ML VIAL IV SCH (18:00)
[2024-12-11] MEDS ORDERED: AMLO1TAB25 PO (19:48)
[2024-12-11] MEDS ORDERED: CLONI1TA PO (19:48)
[2024-12-11] MEDS: cloNIDine 0.1MG TABLET PO SCH (20:11)
[2024-12-12] MEDS ORDERED: predniSONE 20 MG TAB PO SCH (09:00)
== END 2024-12-11 20:33 | disposition home or self-care (01) | DRG 189 ==
LOC: EDBD 10:29 → M ED 10:29 → M ED INP 15:45 → M PCU 12-11 04:37
PROVIDERS: ADMIT Internal Medicine Nephrology; ATTEND Internal Medicine Nephrology
DX: J96.01 Acute respiratory failure with hypoxia (principal); J44.1 Chronic obstructive pulmonary disease with (acute) exacerbation; C34.32 Malignant neoplasm of lower lobe, left bronchus or lung; J96.02 Acute respiratory failure with hypercapnia; J43.2 Centrilobular emphysema; I10 Essential (primary) hypertension; M79.7 Fibromyalgia; E87.5 Hyperkalemia; B34.2 Coronavirus infection, unspecified; Z88.0 Allergy status to penicillin; M32.9 Systemic lupus erythematosus, unspecified; E11.9 Type 2 diabetes mellitus without complications; F41.9 Anxiety disorder, unspecified; F32.A Depression, unspecified; E66.9 Obesity, unspecified; Z68.30 Body mass index [BMI] 30.0-30.9, adult

== ENCOUNTER 2024-12-25 23:07 | Inpatient (IN) | payer MEDICARE ==
[~2024-12-25] VITALS: Ht 180.3 cm; Wt 97.0 kg
[~2024-12-25 23:07] MED LIST changes: +AMLO1TAB25 PO; +CLONI1TA PO; +DOXY100T PO; +MUCI600T31 PO; +PANT40TA29 PO
[2024-12-25 23:26] LABS: VENOUS BASE EXCESS 3.9 (-2.0-2.0); VENOUS HCO3 32.6 MMOL/L (23.0-27.0); VENOUS O2 SATURATION 79.1 % (60.0-80.0); VENOUS PARTIAL PRESSURE CO2 65.1 mmHg (38.0-50.0); VENOUS PARTIAL PRESSURE O2 39.3 mmHg (30.0-50.0); VENOUS PH 7.318 UNITS (7.330-7.430); VENOUS STANDARD HCO3 27.4 MMOL/L; VENOUS TOTAL CO2 34.6 MMOL/L (24.0-28.0)
[2024-12-25 23:34] LABS: BASO # 0.1 10^3/uL (0.0-0.2); BASO % 0.2 % (0.0-1.0); EOS % 0.1 % (0.0-3.0); HEMATOCRIT 52.3 % (36.0-47.0); HEMOGLOBIN 16.4 g/dl (12.0-15.5); LYMPH # 1.5 10^3/uL (1.5-5.0); MEAN CORPUSCULAR HEMOGLOBIN 28.8 pg (27.0-33.0); MEAN CORPUSCULAR HGB CONC 31.4 g/dl (32.0-36.5); MEAN CORPUSCULAR VOLUME 91.9 fl (80.0-96.0); MONO # 1.2 10^3/uL (0.0-0.8); MONO % 5.9 % (2.0-8.0); NEUTROPHILS # 18.3 10^3/uL (1.5-8.5); NEUTROPHILS % 86.3 % (36.0-66.0); PLATELET COUNT, AUTOMATED 200 10^3/uL (150-450); RED BLOOD COUNT 5.69 10^6/uL (4.00-5.40); WHITE BLOOD COUNT 21.2 10^3/uL (4.0-10.0)
[2024-12-25 23:57] LABS: BLOOD UREA NITROGEN 19 MG/DL (9-23); CALCIUM LEVEL 8.5 MG/DL (8.3-10.6); CARBON DIOXIDE LEVEL 34 MMOL/L (20-31); CHLORIDE LEVEL 105 MMOL/L (98-107); CREATININE FOR GFR 0.77 MG/DL (0.55-1.30); GLOMERULAR FILTRATION RATE 87.7 (>45); GLUCOSE, FASTING 120 MG/DL (74-106); POTASSIUM SERUM 4.2 MMOL/L (3.5-5.1); SODIUM LEVEL 146 MMOL/L (136-145)
[2024-12-26] MEDS: IPRATROPIUM 0.5MG/ALBUTEROL 2.5MG INH SOL UD 3ML NEB SCH (00:07)
[2024-12-26 00:25] LABS: ABG BASE EXCESS 3.3 (-2.0-2.0); ABG HCO3 30.5 MMOL/L (22.0-26.0); ABG O2 SATURATION 95.7 % (95.0-99.0); ABG PARTIAL PRESSURE CO2 55.8 mmHg (35.0-45.0); ABG PARTIAL PRESSURE O2 78.3 mmHg (75.0-100.0); ABG STANDARD HCO3 27.3 MMOL/L. (22.0-26.0); ABG TOTAL CO2 32.2 MMOL/L (23.0-31.0); ABG pH (ARTERIAL) 7.355 UNITS (7.350-7.450)
[2024-12-26 00:39] LABS: CK-MB VALUE MASS < 1.0 NG/ML (<3.6)
[2024-12-26 00:40] LABS: C REACTIVE PROTEIN QUANTITATIV 1.84 MG/DL (<1.0)
[2024-12-26 00:42] LABS: CPK CREATINE PHOSPHOKINASE 45 U/L (34-145); MB/CK RELATIVE INDEX 2.22 (< OR =4)
[2024-12-26 00:48] LABS: ERYTHROCYTE SEDIMENTATION RATE 19 mm/hr (0-30)
[2024-12-26] MEDS ORDERED: ISOVUE-370 76% 100ML VIAL As Ordered ONE (01:06)
[2024-12-26 02:06] LABS: CK-MB VALUE MASS < 1.0 NG/ML (<3.6)
[2024-12-26 02:13] LABS: CPK CREATINE PHOSPHOKINASE 39 U/L (34-145); MB/CK RELATIVE INDEX 2.56 (< OR =4)
[2024-12-26] MEDS: cefTRIAXone SOD 2 GM in DEXTROSE 5% (D5W) ADV/MINI-BAG 50 ML IV ONE (03:29)
[2024-12-26] MEDS: AZITHROMYCIN 250MG TABLET PO ONE (03:37)
[2024-12-26] MEDS ORDERED: GLUCOSE 4 GM CHEW PO PRN (04:15)
[2024-12-26] MEDS ORDERED: DEXTROSE 50% 50ML SYRINGE IV PRN (04:15)
[2024-12-26] MEDS ORDERED: MAALOX 30 ML SUSP *UDC PO PRN (04:15)
[2024-12-26] MEDS ORDERED: GLUCAGON INJ 1MG VIAL SC PRN (04:15)
[2024-12-26] MEDS ORDERED: CLON-412 PO (04:49)
[2024-12-26] MEDS ORDERED: PANT40TA29 PO (04:49)
[2024-12-26] MEDS ORDERED: AMLO1TAB25 PO (04:49)
[2024-12-26] MEDS ORDERED: GUAI600T54 PO (04:49)
[2024-12-26] MEDS ORDERED: BUDE10.32 INH (04:49)
[2024-12-26] MEDS ORDERED: HOME MED LIST COMPLETE! XX SCH (04:50)
[2024-12-26] MEDS: methylPREDNISolone 125MG 2ML VIAL IV SCH ×2 (04:53→13:50)
[2024-12-26] MEDS: ACETAMINOPHEN 325 MG TAB PO PRN (04:53)
[2024-12-26] MEDS: NICOTINE 14 MG/24 HR TRANSDERMAL TD PRN (05:03)
[2024-12-26] MEDS ORDERED: IPRATROPIUM 0.5MG/2.5ML (0.02%) SOLN NEB As Ordered ONE (05:09)
[2024-12-26] MEDS: LEVALBUTEROL 1.25 MG 0.5ML CONCENTRATE NEB INH PRN (05:10)
[2024-12-26] MEDS: GABAPENTIN 300 MG CAP PO SCH (05:22)
[2024-12-26 06:19] LABS: INR 0.89; PROTHROMBIN TIME 12.3 SECONDS (12.5-14.5)
[2024-12-26 06:32] LABS: PROCALCITONIN 0.04 ng/ml
[2024-12-26] MEDS: IPRATROPIUM 0.5MG/ALBUTEROL 2.5MG INH SOL UD 3ML INH SCH (07:39)
[2024-12-26] MEDS: SYMBICORT 160/4.5MCG INHALER 6GM INH SCH (07:39)
[2024-12-26 07:40] VITALS: BP 140/76; TEMP 97.6; O2SAT 97
[2024-12-26 08:19] LABS: BASO % 0.2 % (0.0-1.0); HEMATOCRIT 49.7 % (36.0-47.0); HEMOGLOBIN 15.5 g/dl (12.0-15.5); LYMPH # 0.5 10^3/uL (1.5-5.0); LYMPH % 2.8 % (24.0-44.0); MEAN CORPUSCULAR HGB CONC 31.2 g/dl (32.0-36.5); MEAN CORPUSCULAR VOLUME 93.1 fl (80.0-96.0); MONO # 0.1 10^3/uL (0.0-0.8); MONO % 0.8 % (2.0-8.0); NEUTROPHILS # 17.6 10^3/uL (1.5-8.5); NEUTROPHILS % 95.8 % (36.0-66.0); PLATELET COUNT, AUTOMATED 200 10^3/uL (150-450); RED BLOOD COUNT 5.34 10^6/uL (4.00-5.40); WHITE BLOOD COUNT 18.3 10^3/uL (4.0-10.0)
[2024-12-26 08:26] LABS: BLOOD UREA NITROGEN 20 MG/DL (9-23); CALCIUM LEVEL 8.5 MG/DL (8.3-10.6); CARBON DIOXIDE LEVEL 29 MMOL/L (20-31); CHLORIDE LEVEL 105 MMOL/L (98-107); GLOMERULAR FILTRATION RATE > 90.0 (>45); GLUCOSE, FASTING 306 MG/DL (74-106); POTASSIUM SERUM 4.6 MMOL/L (3.5-5.1); SODIUM LEVEL 144 MMOL/L (136-145)
[2024-12-26] MEDS: ENOXAPARIN 40MG/0.4ML SYRINGE (J1650 PER 10MG) SC SCH (08:42)
[2024-12-26] MEDS: INSULIN LISPRO (NovoLOG) PER UNIT SC SCH ×2 (08:42→20:58)
[2024-12-26] MEDS: PANTOPRAZOLE 40MG TAB (PROTONIX) PO SCH (08:44)
[2024-12-26] MEDS: DOCUSATE SODIUM 100MG CAPSULE PO SCH (08:44)
[2024-12-26] MEDS: cloNIDine 0.1MG TABLET PO SCH (09:00)
[2024-12-26] MEDS ORDERED: PANTOPRAZOLE 40MG VIAL IV SCH (09:00)
[2024-12-26 16:10] VITALS: BP 154/81; TEMP 97.9; O2SAT 94
[2024-12-26 20:00] VITALS: BP 154/70; TEMP 97.9; O2SAT 92
[2024-12-27] VITALS (7 sets, daily range): BP systolic 148–150; BP diastolic 71–80; TEMP 97.5–98.4; O2SAT 86–94
[2024-12-27] MEDS ORDERED: AZITHROMYCIN INJ 500 MG, VIAL MATE ADAPTER 1 EACH in D5W 250 ML IV SCH (03:00)
[2024-12-27] MEDS: cefTRIAXone SOD 2 GM in DEXTROSE 5% (D5W) ADV/MINI-BAG 50 ML IV SCH (03:35)
[2024-12-27 05:40] LABS: VENOUS BASE EXCESS 3.3 (-2.0-2.0); VENOUS HCO3 30.3 MMOL/L (23.0-27.0); VENOUS O2 SATURATION 98.9 % (60.0-80.0); VENOUS PARTIAL PRESSURE CO2 55.7 mmHg (38.0-50.0); VENOUS PARTIAL PRESSURE O2 147.5 mmHg (30.0-50.0); VENOUS PH 7.354 UNITS (7.330-7.430); VENOUS STANDARD HCO3 27.4 MMOL/L
[2024-12-27 05:51] LABS: HEMATOCRIT 45.4 % (36.0-47.0); HEMOGLOBIN 14.4 g/dl (12.0-15.5); MEAN CORPUSCULAR HEMOGLOBIN 29.4 pg (27.0-33.0); MEAN CORPUSCULAR HGB CONC 31.7 g/dl (32.0-36.5); MEAN CORPUSCULAR VOLUME 92.8 fl (80.0-96.0); PLATELET COUNT, AUTOMATED 167 10^3/uL (150-450); RED BLOOD COUNT 4.89 10^6/uL (4.00-5.40); WHITE BLOOD COUNT 15.5 10^3/uL (4.0-10.0)
[2024-12-27 06:18] LABS: ALBUMIN 2.7 G/DL (3.2-5.2); ALKALINE PHOSPHATASE 63 U/L (35-104); ALT/SGPT 13 U/L (7.0-40); AST/SGOT < 8 U/L (<34); BILIRUBIN,TOTAL 0.2 MG/DL (0.3-1.2); BLOOD UREA NITROGEN 22 MG/DL (9-23); CALCIUM LEVEL 8.5 MG/DL (8.3-10.6); CARBON DIOXIDE LEVEL 34 MMOL/L (20-31); CHLORIDE LEVEL 102 MMOL/L (98-107); CREATININE FOR GFR 0.66 MG/DL (0.55-1.30); GLOMERULAR FILTRATION RATE > 90.0 (>45); GLUCOSE, FASTING 307 MG/DL (74-106); POTASSIUM SERUM 4.7 MMOL/L (3.5-5.1); SODIUM LEVEL 141 MMOL/L (136-145); TOTAL PROTEIN 5.3 G/DL (5.7-8.2)
[2024-12-27] MEDS: AZITHROMYCIN 250MG TABLET PO SCH (07:59)
[2024-12-27] MEDS: MOM 30ML SUSPENSION UDC PO PRN (07:59)
[2024-12-27] MEDS: LanTUS (INSULIN GLARGINE INJ) 1 UNITS/0.01 ML SC SCH (08:41)
[2024-12-27] MEDS ORDERED: POLYVINYL ALCOHOL OPHTH SOLN 15ML (LIQUITEARS) OU PRN (09:10)
[2024-12-27] MEDS: BENZONATATE 100MG CAPSULE PO SCH (09:22)
[2024-12-27] MEDS ORDERED: KETOROLAC 30 MG/ML 1ML VIAL IV PRN (12:05)
[2024-12-27] MEDS: methylPREDNISolone 125MG 2ML VIAL IV SCH (17:32)
[2024-12-28] VITALS (11 sets, daily range): BP systolic 143–180; BP diastolic 72–89; TEMP 97.2–98.2; O2SAT 84–95
[2024-12-28 06:14] LABS: VENOUS BASE EXCESS 10.8 (-2.0-2.0); VENOUS HCO3 38.6 MMOL/L (23.0-27.0); VENOUS O2 SATURATION 99.3 % (60.0-80.0); VENOUS PARTIAL PRESSURE CO2 63.7 mmHg (38.0-50.0); VENOUS PARTIAL PRESSURE O2 162.4 mmHg (30.0-50.0); VENOUS STANDARD HCO3 34.6 MMOL/L; VENOUS TOTAL CO2 40.5 MMOL/L (24.0-28.0)
[2024-12-28 06:26] LABS: BASO % 0.1 % (0.0-1.0); HEMATOCRIT 46.1 % (36.0-47.0); HEMOGLOBIN 14.6 g/dl (12.0-15.5); LYMPH # 0.6 10^3/uL (1.5-5.0); LYMPH % 5.4 % (24.0-44.0); MEAN CORPUSCULAR HEMOGLOBIN 29.4 pg (27.0-33.0); MEAN CORPUSCULAR HGB CONC 31.7 g/dl (32.0-36.5); MEAN CORPUSCULAR VOLUME 92.8 fl (80.0-96.0); MONO # 0.3 10^3/uL (0.0-0.8); MONO % 2.9 % (2.0-8.0); NEUTROPHILS # 10.7 10^3/uL (1.5-8.5); NEUTROPHILS % 91.3 % (36.0-66.0); PLATELET COUNT, AUTOMATED 152 10^3/uL (150-450); RED BLOOD COUNT 4.97 10^6/uL (4.00-5.40); WHITE BLOOD COUNT 11.7 10^3/uL (4.0-10.0)
[2024-12-28 06:51] LABS: BLOOD UREA NITROGEN 20 MG/DL (9-23); CARBON DIOXIDE LEVEL 37 MMOL/L (20-31); CHLORIDE LEVEL 98 MMOL/L (98-107); GLOMERULAR FILTRATION RATE > 90.0 (>45); GLUCOSE, FASTING 203 MG/DL (74-106); POTASSIUM SERUM 4.8 MMOL/L (3.5-5.1); SODIUM LEVEL 140 MMOL/L (136-145)
[2024-12-28] MEDS: predniSONE 20 MG TAB PO SCH (16:54)
[2024-12-28] MEDS: CEFDINIR 300 MG CAP (OMNICEF) PO SCH (20:32)
[2024-12-29 05:00] VITALS: BP 184/90; TEMP 97.9; O2SAT 89
[2024-12-29 06:00] VITALS: BP_SYST 168; BP_DIAS 64; BP_DIAS 84
[2024-12-29 06:17] LABS: BASO % 0.1 % (0.0-1.0); HEMATOCRIT 48.1 % (36.0-47.0); HEMOGLOBIN 15.1 g/dl (12.0-15.5); LYMPH # 1.1 10^3/uL (1.5-5.0); MEAN CORPUSCULAR HEMOGLOBIN 28.4 pg (27.0-33.0); MEAN CORPUSCULAR HGB CONC 31.4 g/dl (32.0-36.5); MEAN CORPUSCULAR VOLUME 90.4 fl (80.0-96.0); MONO # 0.6 10^3/uL (0.0-0.8); MONO % 6.6 % (2.0-8.0); NEUTROPHILS # 7.9 10^3/uL (1.5-8.5); PLATELET COUNT, AUTOMATED 169 10^3/uL (150-450); RED BLOOD COUNT 5.32 10^6/uL (4.00-5.40); WHITE BLOOD COUNT 9.6 10^3/uL (4.0-10.0)
[2024-12-29 06:39] LABS: BLOOD UREA NITROGEN 21 MG/DL (9-23); CALCIUM LEVEL 8.2 MG/DL (8.3-10.6); CARBON DIOXIDE LEVEL 38 MMOL/L (20-31); CHLORIDE LEVEL 98 MMOL/L (98-107); CREATININE FOR GFR 0.62 MG/DL (0.55-1.30); GLOMERULAR FILTRATION RATE > 90.0 (>45); GLUCOSE, FASTING 169 MG/DL (74-106); POTASSIUM SERUM 4.2 MMOL/L (3.5-5.1); SODIUM LEVEL 140 MMOL/L (136-145)
[2024-12-29 08:52] VITALS: BP 174/96
[2024-12-29 09:17] VITALS: BP 174/96
[2024-12-29] MEDS ORDERED: AZIT-12 PO (11:02)
[2024-12-29] MEDS ORDERED: CEFD300CAP PO (11:02)
[2024-12-29] MEDS ORDERED: LISI20TA33 PO (11:02)
[2024-12-29] MEDS ORDERED: BENZ-18 PO (11:03)
[2024-12-29] MEDS ORDERED: HYDR-643 PO (11:03)
== END 2024-12-29 12:55 | disposition home or self-care (01) | DRG 189 ==
LOC: M ED 23:07 → EDBD 23:07 → M ED INP 12-26 04:14 → M MSPAV 12-26 16:10
PROVIDERS: ADMIT Family Medicine; ATTEND Internal Medicine Nephrology
DX: J96.01 Acute respiratory failure with hypoxia (principal); J18.9 Pneumonia, unspecified organism; J44.1 Chronic obstructive pulmonary disease with (acute) exacerbation; J44.0 Chronic obstructive pulmonary disease with (acute) lower respiratory infection; J45.909 Unspecified asthma, uncomplicated; M32.9 Systemic lupus erythematosus, unspecified; E11.9 Type 2 diabetes mellitus without complications; I10 Essential (primary) hypertension; M79.7 Fibromyalgia; M54.9 Dorsalgia, unspecified; G89.29 Other chronic pain; R91.1 Solitary pulmonary nodule; J96.02 Acute respiratory failure with hypercapnia; F41.9 Anxiety disorder, unspecified; F32.A Depression, unspecified; F17.210 Nicotine dependence, cigarettes, uncomplicated; E66.811 Obesity, class 1; Z68.30 Body mass index [BMI] 30.0-30.9, adult; Z90.49 Acquired absence of other specified parts of digestive tract; Z90.79 Acquired absence of other genital organ(s); Z79.84 Long term (current) use of oral hypoglycemic drugs; Z79.899 Other long term (current) drug therapy; Z88.0 Allergy status to penicillin

== ENCOUNTER → 2025-01-01 | Outpatient (CLI) | payer MEDICARE ==
[~2025-01-01] MED LIST changes: +BENZ-18 PO; +BUDE10.32 INH; +CEFD300CAP PO; +CLON-412 PO; +GUAI600T54 PO; +HYDR-643 PO; +ISOVUE-370 76% 100ML VIAL As Ordered ONE
== END ==
LOC: M RAD 12:54
PROVIDERS: ATTEND General Practice
DX: C34.32 Malignant neoplasm of lower lobe, left bronchus or lung (principal)
CPT/HCPCS: 70470; Q9967

== ENCOUNTER → 2025-01-09 | Outpatient (CLI) | payer MEDICAID, MEDICARE ==
[~2025-01-09] MED LIST changes: +BUDE10.7 IH; -ISOVUE-370 76% 100ML VIAL As Ordered ONE; +LISI40TA4 PO; -PRED50TA PO; +PRED50TA57 PO
== END ==
LOC: M ONCR 12:48
PROVIDERS: ATTEND General Practice
DX: R91.1 Solitary pulmonary nodule (principal); D38.0 Neoplasm of uncertain behavior of larynx; I10 Essential (primary) hypertension; J18.9 Pneumonia, unspecified organism; J44.9 Chronic obstructive pulmonary disease, unspecified; F17.218 Nicotine dependence, cigarettes, with other nicotine-induced disorders; Z88.0 Allergy status to penicillin; Z88.1 Allergy status to other antibiotic agents; Z79.84 Long term (current) use of oral hypoglycemic drugs; Z79.620 Long term (current) use of immunosuppressive biologic; Z79.899 Other long term (current) drug therapy; Z92.3 Personal history of irradiation

== ENCOUNTER → 2025-01-24 | Outpatient (CLI) | payer MEDICARE ==
[~2025-01-24] MED LIST changes: +LIDOCAINE 1% MDV 20ML VIAL As Ordered ONE
[2025-01-24 13:00] VITALS: TEMP 97.4
[2025-01-24 13:45] VITALS: BP 164/98; O2SAT 94
== END ==
LOC: M IRPRO 12:42
PROVIDERS: ATTEND General Practice
DX: E04.1 Nontoxic single thyroid nodule (principal); C34.32 Malignant neoplasm of lower lobe, left bronchus or lung

== ENCOUNTER 2025-03-12 16:35 | Inpatient (IN) | payer MEDICARE ==
[~2025-03-12] VITALS: Ht 177.8 cm; Wt 95.7 kg
[~2025-03-12 16:35] MED LIST changes: -LIDOCAINE 1% MDV 20ML VIAL As Ordered ONE; +LISI40TA10 PO; -LISI40TA4 PO
[2025-03-12 17:25] LABS: VENOUS PH 7.260 UNITS (7.330-7.430)
[2025-03-12 17:26] LABS: VENOUS BASE EXCESS 4.5 (-2.0-2.0); VENOUS HCO3 35.8 MMOL/L (23.0-27.0); VENOUS O2 SATURATION 98.1 % (60.0-80.0); VENOUS PARTIAL PRESSURE CO2 81.6 mmHg (38.0-50.0); VENOUS PARTIAL PRESSURE O2 121.6 mmHg (30.0-50.0); VENOUS STANDARD HCO3 28.5 MMOL/L; VENOUS TOTAL CO2 38.3 MMOL/L (24.0-28.0)
[2025-03-12 17:34] LABS: BASO # 0.1 10^3/uL (0.0-0.2); BASO % 0.7 % (0.0-1.0); EOS # 0.1 10^3/uL (0.0-0.5); EOS % 0.8 % (0.0-3.0); LYMPH # 1.1 10^3/uL (1.5-5.0); LYMPH % 14.3 % (24.0-44.0); MONO # 0.7 10^3/uL (0.0-0.8); MONO % 9.0 % (2.0-8.0); NEUTROPHILS # 5.6 10^3/uL (1.5-8.5); NEUTROPHILS % 74.9 % (36.0-66.0); PLATELET COUNT, AUTOMATED 185 10^3/uL (150-450)
[2025-03-12 18:01] LABS: ALT/SGPT 11.0 U/L (7.0-40); AST/SGOT 18.0 U/L (<34); CALCIUM LEVEL 8.6 MG/DL (8.3-10.6); CARBON DIOXIDE LEVEL 36.0 MMOL/L (20-31); CHLORIDE LEVEL 98.0 MMOL/L (98-107); CREATININE FOR GFR 0.82 MG/DL (0.55-1.30); GLOMERULAR FILTRATION RATE 81.3 (>45); POTASSIUM SERUM 4.6 MMOL/L (3.5-5.1); SODIUM LEVEL 141.0 MMOL/L (136-145)
[2025-03-12 18:15] LABS: ABG BASE EXCESS 0.9 (-2.0-2.0); ABG HCO3 31.0 MMOL/L (22.0-26.0); ABG O2 SATURATION 96.6 % (95.0-99.0); ABG PARTIAL PRESSURE CO2 72.2 mmHg (35.0-45.0); ABG PARTIAL PRESSURE O2 94.1 mmHg (75.0-100.0); ABG STANDARD HCO3 25.2 MMOL/L. (22.0-26.0); ABG TOTAL CO2 33.2 MMOL/L (23.0-31.0); ABG pH (ARTERIAL) 7.250 UNITS (7.350-7.450)
[2025-03-12 19:41] LABS: ABG BASE EXCESS 3.7 (-2.0-2.0); ABG HCO3 36.2 MMOL/L (22.0-26.0); ABG O2 SATURATION 96.4 % (95.0-99.0); ABG PARTIAL PRESSURE O2 88.8 mmHg (75.0-100.0); ABG STANDARD HCO3 27.7 MMOL/L. (22.0-26.0); ABG TOTAL CO2 39.0 MMOL/L (23.0-31.0)
[2025-03-12 19:43] LABS: ABG pH (ARTERIAL) 7.223 UNITS (7.350-7.450)
[2025-03-12 19:44] LABS: ABG PARTIAL PRESSURE CO2 89.9 mmHg (35.0-45.0)
[2025-03-12] MEDS ORDERED: MOM 30 ML SUSPENSION UDC PO PRN (20:20)
[2025-03-12] MEDS ORDERED: MAALOX 30 ML SUSP *UDC PO PRN (20:20)
[2025-03-12] MEDS: DOCUSATE SODIUM 100 MG CAPSULE PO SCH (20:40)
[2025-03-12] MEDS: LevoFLOXacin IV 750 MG in IV 1 EA IV ONE (20:45)
[2025-03-12] MEDS: FUROSEMIDE 40 MG/4 ML VIAL IV ONE (20:45)
[2025-03-12] MEDS ORDERED: HYDR-643 PO (21:23)
[2025-03-12] MEDS ORDERED: AZIT500T5 PO (21:23)
[2025-03-12] MEDS ORDERED: HOME MED LIST COMPLETE! XX SCH (21:25)
[2025-03-12 21:45] VITALS: BP 147/81; TEMP 97.9; O2SAT 94
[2025-03-12 22:00] VITALS: BP 127/77; O2SAT 94
[2025-03-13] VITALS (17 sets, daily range): BP systolic 105–141; BP diastolic 60–82; TEMP 97.2–98.5; O2SAT 79–98
[2025-03-13] MEDS: IPRATROPIUM 0.5 MG/ALBUTEROL 2.5 MG INH SOL UD 3 ML NEB SCH (01:09)
[2025-03-13 04:43] LABS: PLATELET COUNT, AUTOMATED 184 10^3/uL (150-450)
[2025-03-13 04:51] LABS: VENOUS BASE EXCESS 2.2 (-2.0-2.0); VENOUS HCO3 35.0 MMOL/L (23.0-27.0); VENOUS O2 SATURATION 67.8 % (60.0-80.0); VENOUS PARTIAL PRESSURE CO2 92.0 mmHg (38.0-50.0); VENOUS PARTIAL PRESSURE O2 36.1 mmHg (30.0-50.0); VENOUS PH 7.198 UNITS (7.330-7.430); VENOUS STANDARD HCO3 25.4 MMOL/L; VENOUS TOTAL CO2 37.8 MMOL/L (24.0-28.0)
[2025-03-13 05:20] LABS: ALT/SGPT < 9 U/L (7.0-40); AST/SGOT 11 U/L (<34); CALCIUM LEVEL 8.7 MG/DL (8.3-10.6); CARBON DIOXIDE LEVEL 35 MMOL/L (20-31); CHLORIDE LEVEL 98 MMOL/L (98-107); CREATININE FOR GFR 1.16 MG/DL (0.55-1.30); GLOMERULAR FILTRATION RATE 53.6 (>45); MAGNESIUM LEVEL 2.2 MG/DL (1.8-2.4); POTASSIUM SERUM 5.9 MMOL/L (3.5-5.1); SODIUM LEVEL 139 MMOL/L (136-145)
[2025-03-13 06:06] LABS: ABG BASE EXCESS 2.7 (-2.0-2.0); ABG HCO3 32.3 MMOL/L (22.0-26.0); ABG O2 SATURATION 93.8 % (95.0-99.0); ABG PARTIAL PRESSURE O2 68.4 mmHg (75.0-100.0); ABG STANDARD HCO3 26.8 MMOL/L. (22.0-26.0); ABG TOTAL CO2 34.4 MMOL/L (23.0-31.0); ABG pH (ARTERIAL) 7.291 UNITS (7.350-7.450)
[2025-03-13 06:07] LABS: ABG PARTIAL PRESSURE CO2 68.5 mmHg (35.0-45.0)
[2025-03-13] MEDS ORDERED: GLUCOSE 4 GM CHEW PO PRN (06:35)
[2025-03-13] MEDS ORDERED: GLUCAGON INJ 1 MG VIAL SC PRN (06:35)
[2025-03-13] MEDS ORDERED: DEXTROSE 50% 50 ML SYRINGE IV PRN (06:35)
[2025-03-13] MEDS ORDERED: FUROSEMIDE 20 MG TAB PO PRN (06:35)
[2025-03-13] MEDS: PANTOPRAZOLE 40MG VIAL IV SCH (08:57)
[2025-03-13] MEDS: INSULIN LISPRO (NovoLOG) PER UNIT SC SCH ×2 (08:58→20:44)
[2025-03-13] MEDS: guaiFENesin ER TABLET 600 MG TAB PO SCH (08:59)
[2025-03-13] MEDS: GABAPENTIN 300 MG CAP PO SCH (08:59)
[2025-03-13] MEDS: HEPARIN SOD 5000 UNITS/ML 1 ML VIAL/SYRINGE SC SCH (08:59)
[2025-03-13] MEDS: SOD POLYSTYRENE SULFONATE SUSP 15GM 60ML UD PO ONE (09:00)
[2025-03-13] MEDS: amLODIPine 10 MG TAB PO SCH (09:00)
[2025-03-13] MEDS: DEXTROSE 50% 50 ML SYRINGE IV STA (09:01)
[2025-03-13] MEDS: HumuLIN R (REGULAR) INSULIN (NovoLIN R) **100 U/ML** PER UNIT IV STA (09:02)
[2025-03-13] MEDS: ACETAMINOPHEN 325 MG TAB PO PRN (11:28)
[2025-03-13 11:43] LABS: CALCIUM LEVEL 8.1 MG/DL (8.3-10.6); CARBON DIOXIDE LEVEL 31.0 MMOL/L (20-31); CHLORIDE LEVEL 98.0 MMOL/L (98-107); CREATININE FOR GFR 1.18 MG/DL (0.55-1.30); GLOMERULAR FILTRATION RATE 52.6 (>45); POTASSIUM SERUM 5.0 MMOL/L (3.5-5.1); SODIUM LEVEL 141.0 MMOL/L (136-145)
[2025-03-13] MEDS: NICOTINE 21MG/24HR 1 EA TRANSDERMAL TD SCH (12:50)
[2025-03-14] VITALS (20 sets, daily range): BP systolic 111–138; BP diastolic 57–73; TEMP 97.3–98.3; O2SAT 90–97
[2025-03-14 06:00] LABS: CALCIUM LEVEL 8.1 MG/DL (8.3-10.6); CARBON DIOXIDE LEVEL 35.0 MMOL/L (20-31); CHLORIDE LEVEL 94.0 MMOL/L (98-107); CREATININE FOR GFR 1.12 MG/DL (0.55-1.30); GLOMERULAR FILTRATION RATE 56.0 (>45); MAGNESIUM LEVEL 2.1 MG/DL (1.8-2.4); POTASSIUM SERUM 5.5 MMOL/L (3.5-5.1); SODIUM LEVEL 136.0 MMOL/L (136-145)
[2025-03-14] MEDS: HumuLIN R (REGULAR) INSULIN (NovoLIN R) **100 U/ML** PER UNIT IV STA (08:45)
[2025-03-14] MEDS: PANTOPRAZOLE 40MG TAB PO SCH (08:49)
[2025-03-14] MEDS: PATIROMER SORBITEX CALCIUM 8.4GM POWDER PACKET PO ONE (08:58)
[2025-03-14 10:57] LABS: CALCIUM LEVEL 8.2 MG/DL (8.3-10.6); CARBON DIOXIDE LEVEL 35.0 MMOL/L (20-31); CHLORIDE LEVEL 97.0 MMOL/L (98-107); CREATININE FOR GFR 1.0 MG/DL (0.55-1.30); GLOMERULAR FILTRATION RATE 64.1 (>45); POTASSIUM SERUM 4.7 MMOL/L (3.5-5.1); SODIUM LEVEL 140.0 MMOL/L (136-145)
[2025-03-14] MEDS ORDERED: AZITHROMYCIN 250 MG TABLET PO ONE (11:55)
[2025-03-14] MEDS: BUDESONIDE 0.5 MG/2 ML INHALATION SUSPENSION NEB SCH (19:24)
[2025-03-15] VITALS (16 sets, daily range): BP systolic 118–160; BP diastolic 60–85; TEMP 97.6–98.1; O2SAT 87–96
[2025-03-15 08:02] LABS: CALCIUM LEVEL 8.4 MG/DL (8.3-10.6); CARBON DIOXIDE LEVEL 38.0 MMOL/L (20-31); CHLORIDE LEVEL 99.0 MMOL/L (98-107); CREATININE FOR GFR 0.86 MG/DL (0.55-1.30); GLOMERULAR FILTRATION RATE 76.8 (>45); MAGNESIUM LEVEL 2.0 MG/DL (1.8-2.4); POTASSIUM SERUM 5.9 MMOL/L (3.5-5.1); SODIUM LEVEL 143.0 MMOL/L (136-145)
[2025-03-15] MEDS ORDERED: AZITHROMYCIN 250 MG TABLET PO SCH (09:00)
[2025-03-15 09:42] LABS: CALCIUM LEVEL 8.3 MG/DL (8.3-10.6); CARBON DIOXIDE LEVEL 37.0 MMOL/L (20-31); CHLORIDE LEVEL 98.0 MMOL/L (98-107); CREATININE FOR GFR 0.88 MG/DL (0.55-1.30); GLOMERULAR FILTRATION RATE 74.7 (>45); POTASSIUM SERUM 5.3 MMOL/L (3.5-5.1); SODIUM LEVEL 140.0 MMOL/L (136-145)
[2025-03-15] MEDS: DEXTROSE 50% 50 ML SYRINGE IV STA (10:26)
[2025-03-15] MEDS: HumuLIN R (REGULAR) INSULIN (NovoLIN R) **100 U/ML** PER UNIT IV STA (10:27)
[2025-03-15] MEDS: ALBUTEROL SULFATE 2.5 MG/0.5 ML INH CONCENTRATE NEB SOLN NEB SCH (10:42)
[2025-03-15] MEDS ORDERED: VELT1POW PO (12:27)
[2025-03-15] MEDS ORDERED: LEVO75TAB PO (12:27)
[2025-03-15] MEDS ORDERED: PRED10TA2 PO (12:27)
[2025-03-15 13:50] LABS: CALCIUM LEVEL 8.5 MG/DL (8.3-10.6); CARBON DIOXIDE LEVEL 38.0 MMOL/L (20-31); CHLORIDE LEVEL 98.0 MMOL/L (98-107); CREATININE FOR GFR 0.88 MG/DL (0.55-1.30); GLOMERULAR FILTRATION RATE 74.7 (>45); POTASSIUM SERUM 5.0 MMOL/L (3.5-5.1); SODIUM LEVEL 141.0 MMOL/L (136-145)
[2025-03-15] MEDS ORDERED: CEFD300CAP PO (14:04)
== END 2025-03-15 15:38 | disposition home health service (06) | DRG 189 ==
LOC: EDBD 16:35 → M ED 16:35 → M ED INP 20:16 → M ICU 21:35 → M PCU 03-14 01:47
PROVIDERS: ADMIT Student in an Organized Health Care Education/Training Program; ATTEND Student in an Organized Health Care Education/Training Program
DX: J96.01 Acute respiratory failure with hypoxia (principal); J44.1 Chronic obstructive pulmonary disease with (acute) exacerbation; J96.02 Acute respiratory failure with hypercapnia; M32.9 Systemic lupus erythematosus, unspecified; E11.65 Type 2 diabetes mellitus with hyperglycemia; I10 Essential (primary) hypertension; M79.7 Fibromyalgia; M54.9 Dorsalgia, unspecified; G89.29 Other chronic pain; F41.9 Anxiety disorder, unspecified; F32.A Depression, unspecified; F17.210 Nicotine dependence, cigarettes, uncomplicated; E66.01 Morbid (severe) obesity due to excess calories; R91.1 Solitary pulmonary nodule; Z90.49 Acquired absence of other specified parts of digestive tract; Z90.79 Acquired absence of other genital organ(s); Z79.2 Long term (current) use of antibiotics; Z79.84 Long term (current) use of oral hypoglycemic drugs; Z79.899 Other long term (current) drug therapy; Z88.0 Allergy status to penicillin; E87.5 Hyperkalemia; Z71.6 Tobacco abuse counseling; G47.33 Obstructive sleep apnea (adult) (pediatric); R13.10 Dysphagia, unspecified

== ENCOUNTER → 2025-07-02 | Outpatient (CLI) | payer MEDICARE ==
[~2025-07-02] MED LIST changes: +AZIT500T5 PO; -IBUP-1022 PO; +IBUP600T42 PO; +LEVO75TAB PO; +VELT1POW PO
== END ==
LOC: M RAD 12:35
PROVIDERS: ATTEND General Practice
DX: C34.32 Malignant neoplasm of lower lobe, left bronchus or lung (principal); J98.11 Atelectasis; J43.9 Emphysema, unspecified; I51.7 Cardiomegaly

== ENCOUNTER → 2025-07-10 | Outpatient (CLI) | payer MEDICARE | LOC: M ONCR 11:49 | PROVIDERS: ATTEND General Practice | DX: C34.32 Malignant neoplasm of lower lobe, left bronchus or lung (principal); R06.02 Shortness of breath; R05.9 Cough, unspecified; Z71.2 Person consulting for explanation of examination or test findings ==